=== PATIENT | female | born 1995 | race Caucasian/White ===

== ENCOUNTER → 2016-11-14 | Outpatient (CLI) | payer OTHER ==
[2016-11-14 09:58] LABS: Basophils # (A) 0.1 k/uL (0-0.2); Basophils % (A) 1 %; CH 30.8; CHCM 34.8; Eosinophils # (A) 0.2 k/uL (0-0.7); Eosinophils % (A) 3 %; HCT 38.6 % (34.0-46.0); HDW 2.91; HGB 12.7 gm/dL (11.4-16.0); Luc # (Auto) 0.15; Luc % (Auto) 2; Lymphocytes # (A) 2.5 k/uL (1.0-4.8); Lymphocytes % (A) 35 %; MCH 29.3 pg (25.0-35.0); MCV 88.8 fL (80.0-100.0); Mean Platelet Volume 8.6; Monocytes # (A) 0.3 k/uL (0-1.0); Monocytes % (A) 4 %; Neutrophils % (A) 56 %; RBC 4.35 m/uL (3.80-5.40); RDW 12.7 % (11.5-15.5); WBC 7.2 k/uL (3.8-10.6); WBC (Perox) 7.53
[2016-11-14 10:52] LABS: ALT 116 U/L (9-52); AST 76 U/L (14-36); Alkaline Phosphatase 132 U/L (38-126); Anion Gap 13 mmol/L; Blood Urea Nitrogen 11 mg/dL (7-17); Calcium 9.3 mg/dL (8.4-10.2); Carbon Dioxide 26 mmol/L (22-30); Chloride 100 mmol/L (98-107); Cholesterol 149 mg/dL (<200); Glucose 226 mg/dL (74-99); HDL Cholesterol 30 mg/dL (40-60); Non-African American GFR(MDRD) >60 (>60 ml/min/1.73 sqM); Potassium 4.2 mmol/L (3.5-5.1); Sodium 139 mmol/L (137-145); Total Bilirubin 0.4 mg/dL (0.2-1.3); Total Protein 7.5 g/dL (6.3-8.2); Triglycerides 213 mg/dL (<150)
[2016-11-14 11:19] LABS: Hepatitis B Surface Ag Index 0.06
[2016-11-14 11:37] LABS: Hepatitis C Virus IgG Index 0.02
[2016-11-14 11:42] LABS: Hepatitis C Virus IgG Ab Negative (Negative)
[2016-11-14 13:53] LABS: Hemoglobin A1C 8.5 % (4.2-6.1)
[2016-11-16 14:29] LABS: Hepatits C Virus RNA, Quant <12 IU/mL (<12); LOG HCV IU/mL <1.08 (<1.08)
[2016-11-17 17:46] LABS: HIV-1/HIV-2 Ab Screen NONREAC (NON REAC)
== END | disposition home or self-care (01) ==
LOC: LABWHC1 08:45
PROVIDERS: ATTEND Family Medicine
DX: Z00.00 Encounter for general adult medical examination without abnormal findings (principal); Z13.220 Encounter for screening for lipoid disorders; Z71.3 Dietary counseling and surveillance; Z71.89 Other specified counseling; Z68.31 Body mass index [BMI] 31.0-31.9, adult; E13.9 Other specified diabetes mellitus without complications
CPT/HCPCS: 36415; 80053; 80061; 83036; 84443; 84681; 85025; 86803; 87340; 87389; 87522

== ENCOUNTER 2017-02-22 16:32 | Emergency (ER) | payer OTHER ==
[2017-02-22] MEDS ORDERED: INSULIN REGULAR 100 UNIT/ML VIAL IV ONE ×2 (16:57→17:57)
[2017-02-22] MEDS ORDERED: SODIUM CHLORIDE 0.9% 2,000 ML IV ONE (16:57)
--- NOTE | 2017-02-22 17:05 | ED ---
General Adult HPI - General Chief complaint: Recheck/Abnormal Lab/Rx Stated complaint: Hyperglycemia Time Seen by Provider: 02/22/17 16:41 Source: patient, RN notes reviewed Mode of arrival: ambulatory Limitations: no limitations - History of Present Illness Initial comments: 21-year-old female presents emergency Department chief complaint hyperglycemia. Patient states her blood sugar has been continuously and elevate over the last few days. Patient states that she was diagnosed with diabetes last year. Patient states takes Levemir at nighttime and NovoLog 15 units with every meal. She states that she is not seeing a blood sugar in the 200s and she's been diagnosed and has told her junior systems analyst this. Patient states that she discharge does not feel well feels tired. Denies any fever or chills denies any cold like symptoms including cough, sore throat, nausea vomiting diarrhea constipation. No dysuria. Patient states that she is not sliding scale. Patient states she just had an appointment last few weeks with her primary care physician and junior systems analyst. - Related Data Home Medications Medication Instructions Recorded Confirmed Insulin Aspart [NovoLOG] 15 units SQ AC-TID 04/14/16 02/22/17 Insulin Detemir [Levemir] 30 unit SQ BID 04/14/16 02/22/17 Allergies Allergy/AdvReac Type Severity Reaction Status Date / Time No Known Allergies Allergy Verified 02/22/17 16:49 Review of Systems ROS Statement: Those systems with pertinent positive or pertinent negative responses have been documented in the HPI. ROS Other: All systems not noted in ROS Statement are negative. Past Medical History Past Medical History: No Reported History History of Any Multi-Drug Resistant Organisms: None Reported Past Surgical History: Ear Surgery, Orthopedic Surgery Past Psychological History: No Psychological Hx Reported Smoking Status: Current every day smoker Past Alcohol Use History: None Reported Past Drug Use History: None Reported General Exam Limitations: no limitations General appearance: alert, in no apparent distress Head exam: Present: atraumatic, normocephalic, normal inspection Eye exam: Present: normal appearance, PERRL, EOMI. Absent: scleral icterus, conjunctival injection, periorbital swelling ENT exam: Present: normal oropharynx, mucous membranes moist Neck exam: Present: normal inspection. Absent: tenderness, meningismus, lymphadenopathy Respiratory exam: Present: normal lung sounds bilaterally. Absent: respiratory distress, wheezes, rales, rhonchi, stridor Cardiovascular Exam: Present: regular rate, normal rhythm, normal heart sounds. Absent: systolic murmur, diastolic murmur, rubs, gallop, clicks GI/Abdominal exam: Present: soft, normal bowel sounds. Absent: distended, tenderness, guarding, rebound, rigid Neurological exam: Present: alert, oriented X3, CN II-XII intact Skin exam: Present: warm, dry, intact, normal color. Absent: rash Course Vital Signs 02/22/17 02/22/17 16:38 17:57 Temperature 98.2 F Pulse Rate 92 68 Respiratory 20 18 Rate Blood Pressure 128/83 99/66 O2 Sat by Pulse 98 98 Oximetry Medical Decision Making - Medical Decision Making 21-year-old female presented for hyperglycemia. Patient's blood sugar is 260 at this time. Patient blood sugar has been uncontrolled secondary to poor insulin dosing. Patient will follow-up with junior systems analyst. Return parameters were discussed. - Lab Data Result diagrams: 02/22/17 17:05 02/22/17 17:05 Lab Results 02/22/17 02/22/17 02/22/17 Range/Units 17:04 17:05 17:05 WBC 9.3 (3.8-10.6) k/uL RBC 4.24 (3.80-5.40) m/uL Hgb 13.4 (11.4-16.0) gm/dL Hct 37.9 (34.0-46.0) % MCV 89.3 (80.0-100.0) fL MCH 31.5 (25.0-35.0) pg MCHC 35.3 (31.0-37.0) g/dL RDW 13.0 (11.5-15.5) % Plt Count 207 (150-450) k/uL Neutrophils % 58 % Lymphocytes % 33 % Monocytes % 4 % Eosinophils % 2 % Basophils % 1 % Neutrophils # 5.4 (1.3-7.7) k/uL Lymphocytes # 3.1 (1.0-4.8) k/uL Monocytes # 0.4 (0-1.0) k/uL Eosinophils # 0.2 (0-0.7) k/uL Basophils # 0.1 (0-0.2) k/uL Sodium 137 (137-145) mmol/L Potassium 3.9 (3.5-5.1) mmol/L Chloride 103 (98-107) mmol/L Carbon Dioxide 24 (22-30) mmol/L Anion Gap 10 mmol/L BUN 13 (7-17) mg/dL Creatinine 0.60 (0.52-1.04) mg/dL Est GFR (MDRD) Af Amer >60 (>60 ml/min/1.73 sqM) Est GFR (MDRD) Non-Af >60 (>60 ml/min/1.73 sqM) Glucose 377 H (74-99) mg/dL POC Glucose (mg/dL) 430 H (75-99) mg/dL POC Glu Manager Outreach ID Mann Steven Calcium 9.2 (8.4-10.2) mg/dL Total Bilirubin 0.5 (0.2-1.3) mg/dL AST 57 H (14-36) U/L ALT 71 H (9-52) U/L Alkaline Phosphatase 121 (38-126) U/L Total Protein 7.2 (6.3-8.2) g/dL Albumin 4.0 (3.5-5.0) g/dL Lipase 147 (23-300) U/L Urine Color Urine Appearance (Clear) Urine pH (5.0-8.0) Ur Specific [place] (1.001-1.035) Urine Protein (Negative) Urine Glucose (UA) (Negative) Urine Ketones (Negative) Urine Blood (Negative) Urine Nitrite (Negative) Urine Bilirubin (Negative) Urine Urobilinogen (<2.0) mg/dL Ur Leukocyte Esterase (Negative) Urine WBC (0-5) /hpf Ur Squamous Epith Cells (0-4) /hpf Urine HCG, Qual (Not Detectd) Acetone, Qual (Negative) 02/22/17 02/22/17 02/22/17 Range/Units 17:05 17:05 17:05 WBC (3.8-10.6) k/uL RBC (3.80-5.40) m/uL Hgb (11.4-16.0) gm/dL Hct (34.0-46.0) % MCV (80.0-100.0) fL MCH (25.0-35.0) pg MCHC (31.0-37.0) g/dL RDW (11.5-15.5) % Plt Count (150-450) k/uL Neutrophils % % Lymphocytes % % Monocytes % % Eosinophils % % Basophils % % Neutrophils # (1.3-7.7) k/uL Lymphocytes # (1.0-4.8) k/uL Monocytes # (0-1.0) k/uL Eosinophils # (0-0.7) k/uL Basophils # (0-0.2) k/uL Sodium (137-145) mmol/L Potassium (3.5-5.1) mmol/L Chloride (98-107) mmol/L Carbon Dioxide (22-30) mmol/L Anion Gap mmol/L BUN (7-17) mg/dL Creatinine (0.52-1.04) mg/dL Est GFR (MDRD) Af Amer (>60 ml/min/1.73 sqM) Est GFR (MDRD) Non-Af (>60 ml/min/1.73 sqM) Glucose (74-99) mg/dL POC Glucose (mg/dL) (75-99) mg/dL POC Glu Manager Outreach ID Calcium (8.4-10.2) mg/dL Total Bilirubin (0.2-1.3) mg/dL AST (14-36) U/L ALT (9-52) U/L Alkaline Phosphatase (38-126) U/L Total Protein (6.3-8.2) g/dL Albumin (3.5-5.0) g/dL Lipase (23-300) U/L Urine Color Light Yellow Urine Appearance Clear (Clear) Urine pH 5.5 (5.0-8.0) Ur Specific [place] 1.023 (1.001-1.035) Urine Protein Negative (Negative) Urine Glucose (UA) 4+ H (Negative) Urine Ketones Negative (Negative) Urine Blood Negative (Negative) Urine Nitrite Negative (Negative) Urine Bilirubin Negative (Negative) Urine Urobilinogen <2.0 (<2.0) mg/dL Ur Leukocyte Esterase Trace H (Negative) Urine WBC 4 (0-5) /hpf Ur Squamous Epith Cells <1 (0-4) /hpf Urine HCG, Qual Not Detected (Not Detectd) Acetone, Qual Negative (Negative) 02/22/17 Range/Units 17:56 WBC (3.8-10.6) k/uL RBC (3.80-5.40) m/uL Hgb (11.4-16.0) gm/dL Hct (34.0-46.0) % MCV (80.0-100.0) fL MCH (25.0-35.0) pg MCHC (31.0-37.0) g/dL RDW (11.5-15.5) % Plt Count (150-450) k/uL Neutrophils % % Lymphocytes % % Monocytes % % Eosinophils % % Basophils % % Neutrophils # (1.3-7.7) k/uL Lymphocytes # (1.0-4.8) k/uL Monocytes # (0-1.0) k/uL Eosinophils # (0-0.7) k/uL Basophils # (0-0.2) k/uL Sodium (137-145) mmol/L Potassium (3.5-5.1) mmol/L Chloride (98-107) mmol/L Carbon Dioxide (22-30) mmol/L Anion Gap mmol/L BUN (7-17) mg/dL Creatinine (0.52-1.04) mg/dL Est GFR (MDRD) Af Amer (>60 ml/min/1.73 sqM) Est GFR (MDRD) Non-Af (>60 ml/min/1.73 sqM) Glucose (74-99) mg/dL POC Glucose (mg/dL) 301 H (75-99) mg/dL POC Glu Manager Outreach ID Mann Steven Calcium (8.4-10.2) mg/dL Total Bilirubin (0.2-1.3) mg/dL AST (14-36) U/L ALT (9-52) U/L Alkaline Phosphatase (38-126) U/L Total Protein (6.3-8.2) g/dL Albumin (3.5-5.0) g/dL Lipase (23-300) U/L Urine Color Urine Appearance (Clear) Urine pH (5.0-8.0) Ur Specific [place] (1.001-1.035) Urine Protein (Negative) Urine Glucose (UA) (Negative) Urine Ketones (Negative) Urine Blood (Negative) Urine Nitrite (Negative) Urine Bilirubin (Negative) Urine Urobilinogen (<2.0) mg/dL Ur Leukocyte Esterase (Negative) Urine WBC (0-5) /hpf Ur Squamous Epith Cells (0-4) /hpf Urine HCG, Qual (Not Detectd) Acetone, Qual (Negative) Disposition Clinical Impression: Hyperglycemia Disposition: HOME SELF-CARE Condition: Stable Instructions: Diabetic Hyperglycemia (ED) Additional Instructions: Please return to the Emergency Department if symptoms worsen or any other concerns. Time of Disposition: 18:48
[2017-02-22 17:16] LABS: Glucose,Whole Blood 430 mg/dL (75-99)
[2017-02-22 17:23] LABS: Appearance,Urine Clear (Clear); Bilirubin,Urine Negative (Negative); Glucose,Urine (UA) 4+ (Negative); Ketones,Urine Negative (Negative); Leukocyte Esterase,Urine Trace (Negative); Nitrite,Urine Negative (Negative); PH, Urine 5.5 (5.0-8.0); Particle Count 1189; Protein,Urine Negative (Negative); Specific Gravity,Urine 1.023 (1.001-1.035); Squamous Epithelial Cell,Urine <1 /hpf (0-4); UA Billing (MACRO vs. MICRO) MICRO; Urobilinogen,Urine <2.0 mg/dL (<2.0); WBC,Urine 4 /hpf (0-5)
[2017-02-22 17:25] LABS: Basophils # (A) 0.1 k/uL (0-0.2); Basophils % (A) 1 %; CH 31.3; CHCM 35.2; Eosinophils # (A) 0.2 k/uL (0-0.7); Eosinophils % (A) 2 %; HCT 37.9 % (34.0-46.0); HDW 2.83; HGB 13.4 gm/dL (11.4-16.0); Luc # (Auto) 0.22; Luc % (Auto) 2; Lymphocytes # (A) 3.1 k/uL (1.0-4.8); Lymphocytes % (A) 33 %; MCH 31.5 pg (25.0-35.0); MCHC 35.3 g/dL (31.0-37.0); MCV 89.3 fL (80.0-100.0); Mean Platelet Volume 8.1; Monocytes # (A) 0.4 k/uL (0-1.0); Monocytes % (A) 4 %; Neutrophils # (A) 5.4 k/uL (1.3-7.7); Neutrophils % (A) 58 %; RBC 4.24 m/uL (3.80-5.40); WBC 9.3 k/uL (3.8-10.6); WBC (Perox) 9.19
[2017-02-22 17:43] LABS: ALT 71 U/L (9-52); AST 57 U/L (14-36); Alkaline Phosphatase 121 U/L (38-126); Anion Gap 10 mmol/L; Blood Urea Nitrogen 13 mg/dL (7-17); Calcium 9.2 mg/dL (8.4-10.2); Carbon Dioxide 24 mmol/L (22-30); Chloride 103 mmol/L (98-107); Glucose 377 mg/dL (74-99); Non-African American GFR(MDRD) >60 (>60 ml/min/1.73 sqM); Potassium 3.9 mmol/L (3.5-5.1); Sodium 137 mmol/L (137-145); Total Bilirubin 0.5 mg/dL (0.2-1.3); Total Protein 7.2 g/dL (6.3-8.2)
[2017-02-22 17:57] LABS: Glucose,Whole Blood 301 mg/dL (75-99)
[2017-02-22 17:58] VITALS: RESP 18
[2017-02-22] MEDS ORDERED: KETOROLAC 30 MG/ML 1 ML VIAL IVP STA (18:39)
[2017-02-22 18:48] LABS: Glucose,Whole Blood 261 mg/dL (75-99)
[2017-02-22 19:28] VITALS: BP 107/54; PULSE 74; TEMP 98.3
== END 2017-02-22 19:28 | disposition home or self-care (01) ==
LOC: EC 16:32
DX: E11.65 Type 2 diabetes mellitus with hyperglycemia (principal); F17.200 Nicotine dependence, unspecified, uncomplicated; Z79.4 Long term (current) use of insulin
CPT/HCPCS: 36415; 80053; 82009; 83690; 85025; 81001; 81025; 99284; 96374; 96361; J1885

== ENCOUNTER → 2017-05-13 | Outpatient (CLI) | payer OTHER ==
--- NOTE | 2017-05-13 15:22 | US ---
EXAMINATION TYPE: US pelvic complete DATE OF EXAM: 05/13/2017 COMPARISON: US 2014 CLINICAL HISTORY: N92.6 Irregular Menses. LMP March 2017 lasting 3 weeks, diabetic/ on insulin TECHNIQUE: Transabdominal (TA) Date of LMP: March 2017 EXAM MEASUREMENTS: Uterus: 7.0 x 4.5 x 3.0 cm Endometrial Stripe: 0.8 cm Right Ovary: 4.3 x 2.9 x 2.7 cm Left Ovary: 4.1 x 2.7 x 3.3 cm 1. Uterus: Anteverted 2. Endometrium: unable to correlate thickness with mid March LMP 3. Right Ovary: multiple small follicles throughout 4. Left Ovary: multiple small follicles throughout 5. Bilateral Adnexa: wnl 6. Posterior cul-de-sac: wnl IMPRESSION: 1. Small ovarian follicles. Otherwise unremarkable study.
== END | disposition home or self-care (01) ==
LOC: RADUSWWP 13:54
PROVIDERS: ATTEND Family Medicine
DX: N92.6 Irregular menstruation, unspecified (principal)
CPT/HCPCS: 76856

== ENCOUNTER 2017-06-16 08:29 | Emergency (ER) | payer OTHER ==
[2017-06-16] MEDS ORDERED: SODIUM CHLORIDE 0.9% 1,000 ML IV STA (08:57)
[2017-06-16] MEDS ORDERED: ONDANSETRON 4 MG/2 ML VIAL IVP STA (08:57)
[2017-06-16] MEDS ORDERED: KETOROLAC 30 MG/ML 1 ML VIAL IVP STA (08:57)
--- NOTE | 2017-06-16 08:58 | ED ---
Abdominal Pain HPI - General Chief Complaint: Abdominal Pain Stated Complaint: ABDOMINAL PAIN LEFT SIDE Time Seen by Provider: 06/16/17 08:47 Source: patient, RN notes reviewed, old records reviewed Mode of arrival: ambulatory Limitations: no limitations - History of Present Illness Initial Comments: 22-year-old female presenting to the emergency Department chief complaint of left-sided abdominal pain for the past week. Patient reports that she was diagnosed with diabetes last year and diagnosed with ovarian cysts within the past few months. Patient states that the pain has been persistent for a week however this morning she woke up with severe sharp pain and brought her to tears. She did have an episode of vomiting. She denies any diarrhea or dysuria or hematuria. She states that she's also started her menstrual cycle and has been irregular since been on control, she reports that she's been bleeding very heavily. Patient states she's been having to change her pad every 1-2 hours. She denies any recent fever or chills. She states the pain radiates from her left lower quadrant towards her back. - Related Data Home Medications Medication Instructions Recorded Confirmed Insulin Aspart [NovoLOG] 20 units SQ AC-TID 04/14/16 06/16/17 Ibuprofen [Motrin] 400 mg PO BID PRN 06/16/17 06/16/17 Insulin Glargine [Lantus] 50 unit SQ BID 06/16/17 06/16/17 Norgestimate-Ethinyl Estradiol 1 tab PO DAILY 06/16/17 06/16/17 [Mononessa 28 Tablet] Previous Rx's Medication Instructions Recorded Ferrous Gluconate [Iron] 236 mg PO DAILY #20 tablet 06/16/17 Ketorolac [Toradol] 10 mg PO TID #12 tab 06/16/17 Allergies Allergy/AdvReac Type Severity Reaction Status Date / Time No Known Allergies Allergy Verified 06/16/17 08:45 Review of Systems ROS Statement: Those systems with pertinent positive or pertinent negative responses have been documented in the HPI. ROS Other: All systems not noted in ROS Statement are negative. Past Medical History Past Medical History: Diabetes Mellitus Additional Past Medical History / Comment(s): ovarian cysts History of Any Multi-Drug Resistant Organisms: None Reported Past Surgical History: Ear Surgery, Orthopedic Surgery Additional Past Surgical History / Comment(s): l ankle Past Psychological History: No Psychological Hx Reported Smoking Status: Former smoker Past Alcohol Use History: None Reported Past Drug Use History: None Reported General Exam - General Exam Comments Initial Comments: This is a 22-year-old female. Patient does not appear to be in any acute distress. Limitations: no limitations General appearance: alert, in no apparent distress Head exam: Present: atraumatic, normocephalic, normal inspection Eye exam: Present: normal appearance, PERRL, EOMI. Absent: scleral icterus, conjunctival injection, periorbital swelling ENT exam: Present: normal exam, mucous membranes moist Neck exam: Present: normal inspection. Absent: tenderness, meningismus, lymphadenopathy Respiratory exam: Present: normal lung sounds bilaterally. Absent: respiratory distress, wheezes, rales, rhonchi, stridor Cardiovascular Exam: Present: regular rate, normal rhythm, normal heart sounds. Absent: systolic murmur, diastolic murmur, rubs, gallop, clicks GI/Abdominal exam: Present: soft, tenderness (Minimal left lower quadrant tenderness with deep palpation.), normal bowel sounds. Absent: distended, guarding, rebound, rigid External exam: Present: normal external exam Speculum exam: Present: normal speculum exam, vaginal bleeding By manual exam: Present: normal by manual exam. Absent: cervical motion tenderness, adnexal tenderness Extremities exam: Present: normal inspection, full ROM, normal capillary refill. Absent: tenderness, pedal edema, joint swelling, calf tenderness Back exam: Present: normal inspection Neurological exam: Present: alert, oriented X3, CN II-XII intact Psychiatric exam: Present: normal affect, normal mood Skin exam: Present: warm, dry, intact, normal color. Absent: rash Course Vital Signs 06/16/17 08:37 Temperature 98.2 F Pulse Rate 83 Respiratory 18 Rate Blood Pressure 141/82 O2 Sat by Pulse 98 Oximetry Medical Decision Making - Medical Decision Making 22-year-old female chief complaint of left lower quadrant abdominal pain, vision has history of ovarian cysts. She does also complain of increased vaginal bleeding over the past week. Patient was given IV fluid level obtained and transvaginal ultrasound completed. Transvaginal ultrasound showed thickened endometrium. No evidence of any ovarian abnormality's. No evidence of free fluid. Patient was informed of this. Police and performed a digitalis bleeding. She does relate that she has been started on her control and does not believe that her hormones are regulated. Patient's blood work was reviewed and negative for any acute process. Urinalysis did show significant hematuria however she is on her menstrual cycle. Patient will be discharged with prescription for a temperature medication. She does report she feels better after receiving Toradol. Patient also be started on iron pills as there is chance that she could become slightly anemic to the amount of bleeding. Discussed that she needs follow-up with her primary care provider as well as her BRAILLE TEACHER Dr. Carter. Patient understands treatment plan will comply. Return parameters were discussed. - Lab Data Result diagrams: 06/16/17 09:07 06/16/17 09:07 Lab Results 06/16/17 06/16/17 06/16/17 Range/Units 09:07 09:07 09:07 WBC 12.8 H (3.8-10.6) k/uL RBC 4.03 (3.80-5.40) m/uL Hgb 12.2 (11.4-16.0) gm/dL Hct 34.9 (34.0-46.0) % MCV 86.6 (80.0-100.0) fL MCH 30.3 (25.0-35.0) pg MCHC 35.0 (31.0-37.0) g/dL RDW 12.8 (11.5-15.5) % Plt Count 320 (150-450) k/uL Neutrophils % 66 % Lymphocytes % 27 % Monocytes % 4 % Eosinophils % 1 % Basophils % 1 % Neutrophils # 8.4 H (1.3-7.7) k/uL Lymphocytes # 3.4 (1.0-4.8) k/uL Monocytes # 0.5 (0-1.0) k/uL Eosinophils # 0.2 (0-0.7) k/uL Basophils # 0.1 (0-0.2) k/uL Sodium 139 (137-145) mmol/L Potassium 4.2 (3.5-5.1) mmol/L Chloride 103 (98-107) mmol/L Carbon Dioxide 22 (22-30) mmol/L Anion Gap 14 mmol/L BUN 13 (7-17) mg/dL Creatinine 0.60 (0.52-1.04) mg/dL Est GFR (MDRD) Af Amer >60 (>60 ml/min/1.73 sqM) Est GFR (MDRD) Non-Af >60 (>60 ml/min/1.73 sqM) Glucose 162 H (74-99) mg/dL Calcium 9.7 (8.4-10.2) mg/dL Total Bilirubin 0.4 (0.2-1.3) mg/dL AST 56 H (14-36) U/L ALT 65 H (9-52) U/L Alkaline Phosphatase 88 (38-126) U/L Total Protein 7.7 (6.3-8.2) g/dL Albumin 4.5 (3.5-5.0) g/dL Amylase <30 L (30-110) U/L Lipase 76 (23-300) U/L Urine Color Light Red Urine Appearance Clear (Clear) Urine pH 5.5 (5.0-8.0) Ur Specific [place] 1.029 (1.001-1.035) Urine Protein 1+ H (Negative) Urine Glucose (UA) Negative (Negative) Urine Ketones Trace H (Negative) Urine Blood Large H (Negative) Urine Nitrite Negative (Negative) Urine Bilirubin Negative (Negative) Urine Urobilinogen <2.0 (<2.0) mg/dL Ur Leukocyte Esterase Trace H (Negative) Urine RBC >182 H (0-5) /hpf Urine WBC 9 H (0-5) /hpf Urine Mucus Occasional H (None) /hpf Urine HCG, Qual (Not Detectd) 06/16/17 Range/Units 09:07 WBC (3.8-10.6) k/uL RBC (3.80-5.40) m/uL Hgb (11.4-16.0) gm/dL Hct (34.0-46.0) % MCV (80.0-100.0) fL MCH (25.0-35.0) pg MCHC (31.0-37.0) g/dL RDW (11.5-15.5) % Plt Count (150-450) k/uL Neutrophils % % Lymphocytes % % Monocytes % % Eosinophils % % Basophils % % Neutrophils # (1.3-7.7) k/uL Lymphocytes # (1.0-4.8) k/uL Monocytes # (0-1.0) k/uL Eosinophils # (0-0.7) k/uL Basophils # (0-0.2) k/uL Sodium (137-145) mmol/L Potassium (3.5-5.1) mmol/L Chloride (98-107) mmol/L Carbon Dioxide (22-30) mmol/L Anion Gap mmol/L BUN (7-17) mg/dL Creatinine (0.52-1.04) mg/dL Est GFR (MDRD) Af Amer (>60 ml/min/1.73 sqM) Est GFR (MDRD) Non-Af (>60 ml/min/1.73 sqM) Glucose (74-99) mg/dL Calcium (8.4-10.2) mg/dL Total Bilirubin (0.2-1.3) mg/dL AST (14-36) U/L ALT (9-52) U/L Alkaline Phosphatase (38-126) U/L Total Protein (6.3-8.2) g/dL Albumin (3.5-5.0) g/dL Amylase (30-110) U/L Lipase (23-300) U/L Urine Color Urine Appearance (Clear) Urine pH (5.0-8.0) Ur Specific [place] (1.001-1.035) Urine Protein (Negative) Urine Glucose (UA) (Negative) Urine Ketones (Negative) Urine Blood (Negative) Urine Nitrite (Negative) Urine Bilirubin (Negative) Urine Urobilinogen (<2.0) mg/dL Ur Leukocyte Esterase (Negative) Urine RBC (0-5) /hpf Urine WBC (0-5) /hpf Urine Mucus (None) /hpf Urine HCG, Qual Not Detected (Not Detectd) - Radiology Data Radiology results: report reviewed Prominent endometrium which may relate to face menses however correlation with serum hCG should be performed puncture this findings are present and decidual reaction of the . Remarkable over his with no current evidence of ovarian torsion. Disposition Clinical Impression: History of ovarian cyst, Menorrhagia Disposition: HOME SELF-CARE Condition: Good Instructions: Menorrhagia (ED), Dysmenorrhea (ED) Additional Instructions: Patient advised to take medications as prescribed. Rest, increase fluids. Follow-up with primary care physician and BRAILLE TEACHER. Return to the emergency department if any alarming signs or symptoms occur. Prescriptions: Ferrous Gluconate [Iron] 236 mg PO DAILY #20 tablet Ketorolac [Toradol] 10 mg PO TID #12 tab Referrals: Faiza Leslie MD [Primary Care Provider] - 1-2 days Time of Disposition: 11:12
[2017-06-16 09:24] LABS: Basophils # (A) 0.1 k/uL (0-0.2); Basophils % (A) 1 %; CH 30.7; CHCM 35.6; Eosinophils # (A) 0.2 k/uL (0-0.7); Eosinophils % (A) 1 %; HCT 34.9 % (34.0-46.0); HDW 2.96; HGB 12.2 gm/dL (11.4-16.0); Luc # (Auto) 0.23; Luc % (Auto) 2; Lymphocytes # (A) 3.4 k/uL (1.0-4.8); Lymphocytes % (A) 27 %; MCH 30.3 pg (25.0-35.0); MCV 86.6 fL (80.0-100.0); Mean Platelet Volume 7.7; Monocytes # (A) 0.5 k/uL (0-1.0); Monocytes % (A) 4 %; Neutrophils # (A) 8.4 k/uL (1.3-7.7); Neutrophils % (A) 66 %; RBC 4.03 m/uL (3.80-5.40); RDW 12.8 % (11.5-15.5); WBC 12.8 k/uL (3.8-10.6); WBC (Perox) 12.84
[2017-06-16 09:37] LABS: Appearance,Urine Clear (Clear); Bilirubin,Urine Negative (Negative); Glucose,Urine (UA) Negative (Negative); Ketones,Urine Trace (Negative); Leukocyte Esterase,Urine Trace (Negative); Mucus,Urine Occasional /hpf; Nitrite,Urine Negative (Negative); PH, Urine 5.5 (5.0-8.0); Particle Count 5713; Protein,Urine 1+ (Negative); RBC,Urine >182 /hpf (0-5); Specific Gravity,Urine 1.029 (1.001-1.035); UA Billing (MACRO vs. MICRO) MICRO; Urobilinogen,Urine <2.0 mg/dL (<2.0); WBC,Urine 9 /hpf (0-5)
[2017-06-16 10:05] LABS: ALT 65 U/L (9-52); AST 56 U/L (14-36); Alkaline Phosphatase 88 U/L (38-126); Amylase <30 U/L (30-110); Anion Gap 14 mmol/L; Blood Urea Nitrogen 13 mg/dL (7-17); Calcium 9.7 mg/dL (8.4-10.2); Carbon Dioxide 22 mmol/L (22-30); Chloride 103 mmol/L (98-107); Glucose 162 mg/dL (74-99); Non-African American GFR(MDRD) >60 (>60 ml/min/1.73 sqM); Potassium 4.2 mmol/L (3.5-5.1); Sodium 139 mmol/L (137-145); Total Bilirubin 0.4 mg/dL (0.2-1.3); Total Protein 7.7 g/dL (6.3-8.2)
--- NOTE | 2017-06-16 10:52 | US ---
EXAMINATION TYPE: US transvaginal DATE OF EXAM: 06/16/2017 COMPARISON: 05/13/2017 CLINICAL HISTORY: Pain. LLQ pain, bleeding TECHNIQUE: Transvaginal (TV) Date of LMP: 05/26/2017 EXAM MEASUREMENTS: Uterus: 8.0 x 4.3 x 5.2 cm Endometrial Stripe: 1.1 cm Right Ovary: 3.8 x 2.6 x 3.5 cm Left Ovary: 2.8 x 2.1 x 1.8 cm 1. Uterus: Retroverted 2. Endometrium: 1.1 cm 3. Right Ovary: follicles 4. Left Ovary: Unremarkable Spectral, color and waveform doppler imaging shows good arterial and venous flow within the ovaries ; there is no evidence for ovarian torsion. 5. Bilateral Adnexa: wnl 6. Posterior cul-de-sac: no free fluid IMPRESSION: 1. Prominent endometrium, which may relate to the phase of menses. However correlation with serum bet a hCG should be performed to ensure this finding does not represent a decidual reaction of early preg danna. 2. Unremarkable ovaries with no current evidence of ovarian torsion.
[2017-06-16 11:35] VITALS: BP 111/56; PULSE 61; RESP 19; TEMP 98
== END 2017-06-16 11:40 | disposition home or self-care (01) ==
LOC: EC 08:29
DX: N92.0 Excessive and frequent menstruation with regular cycle (principal); N83.209 Unspecified ovarian cyst, unspecified side; E11.9 Type 2 diabetes mellitus without complications; Z87.891 Personal history of nicotine dependence; Z79.4 Long term (current) use of insulin; Z79.3 Long term (current) use of hormonal contraceptives; Z79.899 Other long term (current) drug therapy
CPT/HCPCS: 36415; 80053; 82150; 83690; 85025; 81001; 81025; 93975; 76830; 99284; 96374; 96375; 96361; J2405; J1885

== ENCOUNTER 2017-12-23 11:24 | Emergency (ER) | payer OTHER ==
[2017-12-23] MEDS ORDERED: IPRATROPIUM-ALBUTEROL 3 ML NEB INHALATION STA (12:02)
[2017-12-23] MEDS ORDERED: IBUPROFEN 600 MG TAB PO STA (12:02)
[2017-12-23] MEDS ORDERED: ACETAMINOPHEN TAB 500 MG TAB PO STA (12:02)
[2017-12-23 12:24] VITALS: RESP 18
--- NOTE | 2017-12-23 12:53 | XR ---
EXAMINATION TYPE: XR chest 2V DATE OF EXAM: 12/23/2017 COMPARISON: 04/14/16 HISTORY: Chest pain TECHNIQUE: Frontal and lateral views of the chest are obtained. FINDINGS: There is no focal air space opacity. No evidence for pneumothorax. No pleural effusion. The cardiac silhouette size is within normal limits. The osseous structures are grossly intact. IMPRESSION: 1. No acute cardiopulmonary process.
--- NOTE | 2017-12-23 12:54 | ED ---
General Adult HPI - General Chief complaint: Upper Respiratory Infection Stated complaint: light headed & SOB Time Seen by Provider: 12/23/17 11:30 Source: patient, RN notes reviewed Mode of arrival: ambulatory Limitations: no limitations - History of Present Illness Initial comments: This is a 22-year-old female presents emergency Department complaining of a cough with some sputum production over the last couple of days. Patient states she doesn't know that she has a fever. However when I took she is 100.6. Patient also states she's a little short of breath but does continue to smoke. Patient denies any abdominal pain patient denies nausea vomiting diarrhea. Patient denies any chest pain or palpitations. Patient denies any headache. Patient denies any leg pain or swelling. Patient denies any dysuria hematuria urinary frequency. - Related Data Home Medications Medication Instructions Recorded Confirmed Insulin Aspart [NovoLOG] See Protocol SQ AC-TID 04/14/16 12/23/17 Insulin Detemir [Levemir] 16 unit SQ HS 12/23/17 12/23/17 metFORMIN HCL [Glucophage] 1,000 mg PO BID 12/23/17 12/23/17 Previous Rx's Medication Instructions Recorded Albuterol Inhaler [Ventolin Hfa 1 - 2 puff INHALATION Q6HR PRN #2 12/23/17 Inhaler] puff Azithromycin [Zithromax Tri-Shaheen] 500 mg PO DAILY #3 tab 12/23/17 Allergies Allergy/AdvReac Type Severity Reaction Status Date / Time No Known Allergies Allergy Verified 12/23/17 11:53 Review of Systems ROS Statement: Those systems with pertinent positive or pertinent negative responses have been documented in the HPI. ROS Other: All systems not noted in ROS Statement are negative. Past Medical History Past Medical History: Diabetes Mellitus Additional Past Medical History / Comment(s): ovarian cysts, PCOS History of Any Multi-Drug Resistant Organisms: None Reported Past Surgical History: Ear Surgery, Orthopedic Surgery Additional Past Surgical History / Comment(s): l ankle Past Anesthesia/Blood Transfusion Reactions: No Reported Reaction Past Psychological History: No Psychological Hx Reported, Anxiety Smoking Status: Current every day smoker Past Alcohol Use History: None Reported Past Drug Use History: None Reported - Past Family History Father Additional Family Medical History / Comment(s): back surgery, heart problems Mother Additional Family Medical History / Comment(s): DJD General Exam - General Exam Comments Initial Comments: GENERAL: Patient is well-developed and well-nourished. Patient is nontoxic and well- hydrated and is in mild distress. ENT: Neck is soft and supple. No significant lymphadenopathy is noted. Oropharynx is clear. Moist mucous membranes. Neck has full range of motion without eliciting any pain. EYES: The sclera were anicteric and conjunctiva were pink and moist. Extraocular movements were intact and pupils were equal round and reactive to light. Eyelids were unremarkable. PULMONARY: Unlabored respirations. Good breath sounds bilaterally. No audible rales rhonchi or wheezing was noted. CARDIOVASCULAR: There is a regular rate and rhythm without any murmurs gallops or rubs. ABDOMEN: Soft and nontender with normal bowel sounds. SKIN: Skin is clear with no lesions or rashes and otherwise unremarkable. NEUROLOGIC: Patient is alert and oriented x3. Cranial nerves II through XII are grossly intact. Motor and sensory are also intact. Normal speech, volume and content. Symmetrical smile. MUSCULOSKELETAL: Normal extremities with adequate strength and full range of motion. LYMPHATICS: No significant lymphadenopathy is noted PSYCHIATRIC: Normal psychiatric evaluation. Limitations: no limitations Course Vital Signs 12/23/17 12/23/17 12/23/17 11:29 12:12 12:23 Temperature 97.7 F Pulse Rate 115 H 76 78 Respiratory 22 18 Rate Blood Pressure 132/68 O2 Sat by Pulse 99 Oximetry Medical Decision Making - Medical Decision Making Chest x-ray shows no acute abnormality - Lab Data Lab Results 12/23/17 Range/Units 12:19 Influenza Type A RNA Not Detected (Not Detectd) Influenza Type B (PCR) Not Detected (Not Detectd) Disposition Clinical Impression: Bronchitis Disposition: HOME SELF-CARE Condition: Good Instructions: Acute Bronchitis (ED) Prescriptions: Albuterol Inhaler [Ventolin Hfa Inhaler] 1 - 2 puff INHALATION Q6HR PRN #2 puff PRN Reason: Difficulty breathing Azithromycin [Zithromax Tri-Shaheen] 500 mg PO DAILY #3 tab Referrals: Faiza Leslie MD [Primary Care Provider] - 1-2 days Time of Disposition: 13:01
[2017-12-23 13:18] VITALS: BP 106/63; PULSE 104; TEMP 99.2
== END 2017-12-23 13:18 | disposition home or self-care (01) ==
LOC: EC 11:24
DX: J40 Bronchitis, not specified as acute or chronic (principal); E11.9 Type 2 diabetes mellitus without complications; F17.200 Nicotine dependence, unspecified, uncomplicated; Z79.4 Long term (current) use of insulin
CPT/HCPCS: 71046; 87502; 94640; 99284

== ENCOUNTER 2018-03-30 03:13 | Emergency (ER) | payer OTHER ==
[2018-03-30] MEDS ORDERED: KETOROLAC 60 MG/2 ML VIAL IM STA (03:38)
[2018-03-30] MEDS ORDERED: DEXAMETHASONE SOD PHOSPHATE 10 MG/ML 1 ML VIAL IM STA (03:38)
[2018-03-30 04:01] LABS: Appearance,Urine Clear (Clear); Bilirubin,Urine Negative (Negative); Blood,Urine Moderate (Negative); Color,Urine Yellow; Glucose,Urine (UA) Negative (Negative); Ketones,Urine Negative (Negative); Leukocyte Esterase,Urine Negative (Negative); Mucus,Urine Rare /hpf; Nitrite,Urine Negative (Negative); Protein,Urine Trace (Negative); RBC,Urine >182 /hpf (0-5); Squamous Epithelial Cell,Urine 64 /hpf (0-4); Urobilinogen,Urine <2.0 mg/dL (<2.0); WBC,Urine 18 /hpf (0-5)
--- NOTE | 2018-03-30 04:20 | ED ---
Back Pain HPI - General Source: patient, RN notes reviewed, old records reviewed Limitations: no limitations <Mely Gonzales - Last Filed: 03/30/18 04:16> <Sera Dhillon - Last Filed: 03/30/18 05:48> - General Chief Complaint: Back Pain/Injury Stated Complaint: BACK/LEG PAIN Time Seen by Provider: 03/30/18 03:25 - History of Present Illness Initial Comments: Patient is a 22-year-old male chief complaint of back pain radiating down her legs. She is on her menstrual cycle. Reports that she was at work doing a lot of heavy lifting with this pain just started to occur. She left work to go home early yesterday. Patient states that the pain seems to be equal in both legs. Reports occasional numbness and tingling. No history of back pain or sciatica. Patient states that she has had no abdominal pain. Reports the pain is different than her menstrual cramps. (Mely Gonzales) - Related Data Home Medications Medication Instructions Recorded Confirmed Insulin Aspart [NovoLOG] See Protocol SQ AC-TID 04/14/16 12/23/17 Insulin Detemir [Levemir] 16 unit SQ HS 12/23/17 12/23/17 metFORMIN HCL [Glucophage] 1,000 mg PO BID 12/23/17 12/23/17 Previous Rx's Medication Instructions Recorded Albuterol Inhaler [Ventolin Hfa 1 - 2 puff INHALATION Q6HR PRN #2 12/23/17 Inhaler] puff Azithromycin [Zithromax Tri-Shaheen] 500 mg PO DAILY #3 tab 12/23/17 Cyclobenzaprine [Flexeril] 10 mg PO TID #12 tab 03/30/18 Ibuprofen [Motrin] 600 mg PO Q8HR PRN #20 tab 03/30/18 Allergies Allergy/AdvReac Type Severity Reaction Status Date / Time No Known Allergies Allergy Verified 03/30/18 03:21 Review of Systems ROS Other: All systems not noted in ROS Statement are negative. <Mely Gonzales - Last Filed: 03/30/18 04:16> ROS Other: All systems not noted in ROS Statement are negative. <Sera Dhillon - Last Filed: 03/30/18 05:48> ROS Statement: Those systems with pertinent positive or pertinent negative responses have been documented in the HPI. Past Medical History Past Medical History: Diabetes Mellitus Additional Past Medical History / Comment(s): ovarian cysts, PCOS, blood transfusions History of Any Multi-Drug Resistant Organisms: None Reported Past Surgical History: Ear Surgery, Orthopedic Surgery Additional Past Surgical History / Comment(s): l ankle Past Anesthesia/Blood Transfusion Reactions: No Reported Reaction Past Psychological History: No Psychological Hx Reported, Anxiety Smoking Status: Current every day smoker Past Alcohol Use History: None Reported Past Drug Use History: None Reported - Past Family History Father Additional Family Medical History / Comment(s): back surgery, heart problems Mother Additional Family Medical History / Comment(s): DJD <Mely Gonzales - Last Filed: 03/30/18 04:16> General Exam Limitations: no limitations General appearance: alert, in no apparent distress Head exam: Present: atraumatic, normocephalic, normal inspection Eye exam: Present: normal appearance, PERRL, EOMI. Absent: scleral icterus, conjunctival injection, periorbital swelling ENT exam: Present: normal exam, mucous membranes moist Neck exam: Present: normal inspection. Absent: tenderness, meningismus, lymphadenopathy Respiratory exam: Present: normal lung sounds bilaterally. Absent: respiratory distress, wheezes, rales, rhonchi, stridor Cardiovascular Exam: Present: regular rate, normal rhythm, normal heart sounds. Absent: systolic murmur, diastolic murmur, rubs, gallop, clicks GI/Abdominal exam: Present: soft, normal bowel sounds. Absent: distended, tenderness, guarding, rebound, rigid Extremities exam: Present: normal inspection, full ROM, normal capillary refill. Absent: tenderness, pedal edema, joint swelling, calf tenderness Back exam: Present: normal inspection, full ROM, tenderness, vertebral tenderness (Vertebral tenderness. Lumbar.), other ( Positive straight leg test.) Neurological exam: Present: alert, oriented X3, CN II-XII intact Psychiatric exam: Present: normal affect, normal mood Skin exam: Present: warm, dry, intact, normal color. Absent: rash <Mely Gonzales - Last Filed: 03/30/18 04:16> Course <Mely Gonzales - Last Filed: 03/30/18 04:16> <Sera Dhillon - Last Filed: 03/30/18 05:48> Vital Signs 03/30/18 03:16 Temperature 98.1 F Pulse Rate 67 Respiratory 16 Rate Blood Pressure 136/85 O2 Sat by Pulse 100 Oximetry Finally x-ray report was available at 545, his normal patient was reassessed patient job requires a lot of heavy lifting pushing pulling and twisting him a she was advised to raise off she be gone home on Flexeril 10 mg 3 times a day when necessary she does have a Motrin on board she will continue that also needed basis (Sera Dhillon) Medical Decision Making <Mely Gonzales - Last Filed: 03/30/18 04:16> <Sera Dhillon - Last Filed: 03/30/18 05:48> - Medical Decision Making 22-year-old [employer] chief complaint of lower back pain rating down her legs. She was given IM Toradol. She is driving so we'll not give her muscle relaxers at this time. I discussed that she can rest, ice, do passive stretching of her back. We'll discharge her with anti-inflammatory muscle relaxers. Discussed appropriate follow-up with PCP. Currently pending lumbar spine x-ray. Final disposition by Dr. Martinez. (Mely Gonzales) - Lab Data Lab Results 03/30/18 Range/Units 03:45 Urine Color Yellow Urine Appearance Clear (Clear) Urine pH 6.0 (5.0-8.0) Ur Specific [place] 1.020 (1.001-1.035) Urine Protein Trace H (Negative) Urine Glucose (UA) Negative (Negative) Urine Ketones Negative (Negative) Urine Blood Moderate H (Negative) Urine Nitrite Negative (Negative) Urine Bilirubin Negative (Negative) Urine Urobilinogen <2.0 (<2.0) mg/dL Ur Leukocyte Esterase Negative (Negative) Urine RBC >182 H (0-5) /hpf Urine WBC 18 H (0-5) /hpf Ur Squamous Epith Cells 64 H (0-4) /hpf Urine Mucus Rare H (None) /hpf Disposition Is patient prescribed a controlled substance at d/c from ED?: No When asked, does pt state using other controlled substances?: No If prescribed controlled substance>3 days was MAPS reviewed?: No If opioid is for acute pain is fill amount 7 days or less?: No If Rx opioid, was Start Talking consent form obtained?: No <ChristianMely - Last Filed: 03/30/18 04:16> Is patient prescribed a controlled substance at d/c from ED?: No <Sera Dhillon - Last Filed: 03/30/18 05:48> Clinical Impression: Sciatica Disposition: HOME SELF-CARE Condition: Good Instructions: Acute Low Back Pain (ED) Additional Instructions: apply heat and ice to the back, do stretches. Use a prescription medicine and muscle relaxers as directed. Return to emergency department if any signs or symptoms occur. Prescriptions: Cyclobenzaprine [Flexeril] 10 mg PO TID #12 tab Ibuprofen [Motrin] 600 mg PO Q8HR PRN #20 tab PRN Reason: Pain Referrals: Faiza Leslie MD [Primary Care Provider] - 1-2 days
--- NOTE | 2018-03-30 05:33 | XR ---
EXAM: XR Lumbar Spine, 2 or 3 Views CLINICAL HISTORY: ITS.REASON XR Reason: Pain TECHNIQUE: Frontal and lateral views of the lumbar spine. COMPARISON: No relevant prior studies available. FINDINGS: Vertebrae: Unremarkable. No acute fracture. Normal alignment. Disc spaces: No acute findings. No significant narrowing. Soft tissues: Unremarkable. IMPRESSION: Normal lumbar spine x-rays.
[2018-03-30 05:52] VITALS: BP 142/77; PULSE 79; RESP 17; TEMP 97.8
== END 2018-03-30 05:58 | disposition home or self-care (01) ==
LOC: EC 03:13
DX: M54.41 Lumbago with sciatica, right side (principal); M54.42 Lumbago with sciatica, left side; E11.9 Type 2 diabetes mellitus without complications; F17.200 Nicotine dependence, unspecified, uncomplicated; Z79.4 Long term (current) use of insulin
CPT/HCPCS: 81001; 72100; 99284; 96372 ×2; J1100; J1885

== ENCOUNTER 2018-12-04 01:51 | Observation (INO) | payer BC, OTHER ==
[2018-12-04] MEDS ORDERED: SODIUM CHLORIDE 0.9% 1,000 ML IV ONE ×2 (02:41→08:15)
[2018-12-04] MEDS ORDERED: KETOROLAC 30 MG/ML 1 ML VIAL IVP STA (02:41)
[2018-12-04] MEDS ORDERED: SODIUM CHLORIDE 0.9% 500 ML 500 ML IV ONE (02:41)
[2018-12-04] MEDS ORDERED: ONDANSETRON 4 MG/2 ML VIAL IVP STA (02:41)
[2018-12-04 03:12] LABS: Basophils % (A) 0 %; Eosinophils # (A) 0.2 k/uL (0-0.7); Eosinophils % (A) 2 %; HGB 13.3 gm/dL (11.4-16.0); Lymphocytes # (A) 2.9 k/uL (1.0-4.8); Lymphocytes % (A) 30 %; MCHC 33.2 g/dL (31.0-37.0); MCV 90.6 fL (80.0-100.0); Mean Platelet Volume 7.5; Monocytes # (A) 0.4 k/uL (0-1.0); Monocytes % (A) 4 %; Neutrophils # (A) 5.8 k/uL (1.3-7.7); Neutrophils % (A) 61 %; Platelet Count 204 k/uL (150-450); RBC 4.41 m/uL (3.80-5.40); RDW 12.9 % (11.5-15.5); WBC 9.5 k/uL (3.8-10.6)
[2018-12-04 03:20] LABS: ALT 71 U/L (9-52); AST 62 U/L (14-36); Albumin 4.1 g/dL (3.5-5.0); Alkaline Phosphatase 129 U/L (38-126); Anion Gap 14 mmol/L; Blood Urea Nitrogen 13 mg/dL (7-17); Calcium 9.7 mg/dL (8.4-10.2); Carbon Dioxide 20 mmol/L (22-30); Chloride 100 mmol/L (98-107); Potassium 4.4 mmol/L (3.5-5.1); Sodium 134 mmol/L (137-145); Total Bilirubin 0.6 mg/dL (0.2-1.3); Total Protein 7.6 g/dL (6.3-8.2)
[2018-12-04] MEDS ORDERED: INSULIN REGULAR 100 UNIT/ML VIAL IV ONE ×2 (03:27→04:46)
[2018-12-04 03:29] LABS: Glucose 515 mg/dL (74-99)
[2018-12-04 03:37] LABS: Amorphous Sediment,Urine Rare /hpf; Appearance,Urine Clear (Clear); Bacteria,Urine Rare /hpf; Bilirubin,Urine Negative (Negative); Blood,Urine Negative (Negative); Color,Urine Light Yellow; Glucose,Urine (UA) 4+ (Negative); Ketones,Urine Negative (Negative); Leukocyte Esterase,Urine Moderate (Negative); Mucus,Urine Rare /hpf; Nitrite,Urine Negative (Negative); Protein,Urine Negative (Negative); RBC,Urine 2 /hpf (0-5); Specific Gravity,Urine 1.021 (1.001-1.035); Squamous Epithelial Cell,Urine 4 /hpf (0-4); Urobilinogen,Urine <2.0 mg/dL (<2.0); WBC,Urine 17 /hpf (0-5)
--- NOTE | 2018-12-04 03:49 | ED ---
General Adult HPI <Shawn Briceño - Last Filed: 12/04/18 08:14> - General Source: patient Mode of arrival: ambulatory Limitations: no limitations <Jeannette Cote - Last Filed: 12/05/18 18:05> - General Chief complaint: Recheck/Abnormal Lab/Rx Stated complaint: Hyperglycemia Time Seen by Provider: 12/04/18 02:03 - History of Present Illness Initial comments: 23-year-old female patient with past medical history significant for insulin- dependent type 2 diabetes mellitus presents to the emergency department today for evaluation of hyperglycemia and right-sided headache. Patient states that she has been having difficulty controlling her blood sugars over the last couple of days. States she's been taking her insulin had increased doses and has not been helping. Patient states today at work she started to have a sharp stabbing pain to the right side of her head. States that she does often get headaches on her blood sugar is high. She states that she has been nauseated but has not vomited. She denies any fever or chills. Denies any presence of known infections. States her last period was 5 months ago however she does have PCOS and her periods are irregular. She is unsure she could be . Patient denies any recent rash, shortness breath, chest pain, abdominal pain, diarrhea, constipation, back pain, numbness, tingling, dizziness, weakness, hematuria, dysuria, urinary urgency, urinary frequency, headache, visual changes , or any other complaints. (Jeannette Cote) - Related Data Home Medications Medication Instructions Recorded Confirmed Insulin Aspart [NovoLOG] See Protocol SQ AC-TID 04/14/16 12/04/18 metFORMIN HCL [Glucophage] 1,000 mg PO DAILY 12/23/17 12/04/18 Insulin Glargine,Hum.rec.anlog 35 units SQ DAILY 12/04/18 12/04/18 [Basaglar Kwikpen U-100] Allergies Allergy/AdvReac Type Severity Reaction Status Date / Time No Known Allergies Allergy Verified 12/04/18 07:22 Review of Systems ROS Other: All systems not noted in ROS Statement are negative. <Shawn Briceño - Last Filed: 12/04/18 08:14> ROS Other: All systems not noted in ROS Statement are negative. <Jeannette Cote - Last Filed: 12/05/18 18:05> ROS Statement: Those systems with pertinent positive or pertinent negative responses have been documented in the HPI. Past Medical History Past Medical History: Diabetes Mellitus Additional Past Medical History / Comment(s): ovarian cysts, PCOS, blood transfusions History of Any Multi-Drug Resistant Organisms: None Reported Past Surgical History: Ear Surgery, Orthopedic Surgery Additional Past Surgical History / Comment(s): l ankle Past Anesthesia/Blood Transfusion Reactions: No Reported Reaction Past Psychological History: No Psychological Hx Reported, Anxiety Smoking Status: Current every day smoker Past Alcohol Use History: None Reported Past Drug Use History: None Reported - Past Family History Father Additional Family Medical History / Comment(s): back surgery, heart problems Mother Additional Family Medical History / Comment(s): DJD <Jeannette Cote - Last Filed: 12/05/18 18:05> General Exam Limitations: no limitations General appearance: alert, in no apparent distress, other (Social well-developed , well-nourished adult female patient in no acute distress. Vital signs upon presentation are temperature 97.7F, pulse 66, respirations 18, blood pressure 132/70, pulse ox 99% on room air.) <Jeannette Cote - Last Filed: 12/05/18 18:05> Vital Signs 12/04/18 12/04/18 01:53 08:15 Temperature 97.7 F Pulse Rate 66 60 Respiratory 18 18 Rate Blood Pressure 132/70 122/69 O2 Sat by Pulse 99 99 Oximetry Medical Decision Making - Lab Data Result diagrams: 12/04/18 01:55 12/04/18 01:55 <Shawn Briceño - Last Filed: 12/04/18 08:14> - Lab Data Result diagrams: 12/04/18 01:55 12/05/18 07:54 <Jeannette Cote - Last Filed: 12/05/18 18:05> - Medical Decision Making 23-year-old female patient presented to the emergency department today for evaluation of hyperglycemia. Patient was given IV fluids and several doses of insulin in the emergency department, blood sugar remained elevated. We will admit her for glycemic management. Patient did also have evidence for mild urinary tract infection, we'll start Bactrim pending culture. (Jeannette Cote) - Lab Data Lab Results 12/04/18 12/04/18 12/04/18 Range/Units 01:55 01:55 01:55 WBC 9.5 (3.8-10.6) k/uL RBC 4.41 (3.80-5.40) m/uL Hgb 13.3 (11.4-16.0) gm/dL Hct 40.0 (34.0-46.0) % MCV 90.6 (80.0-100.0) fL MCH 30.0 (25.0-35.0) pg MCHC 33.2 (31.0-37.0) g/dL RDW 12.9 (11.5-15.5) % Plt Count 204 (150-450) k/uL Neutrophils % 61 % Lymphocytes % 30 % Monocytes % 4 % Eosinophils % 2 % Basophils % 0 % Neutrophils # 5.8 (1.3-7.7) k/uL Lymphocytes # 2.9 (1.0-4.8) k/uL Monocytes # 0.4 (0-1.0) k/uL Eosinophils # 0.2 (0-0.7) k/uL Basophils # 0.0 (0-0.2) k/uL Sodium 134 L (137-145) mmol/L Potassium 4.4 (3.5-5.1) mmol/L Chloride 100 (98-107) mmol/L Carbon Dioxide 20 L (22-30) mmol/L Anion Gap 14 mmol/L BUN 13 (7-17) mg/dL Creatinine 0.57 (0.52-1.04) mg/dL Est GFR (CKD-EPI)AfAm >90 (>60 ml/min/1.73 sqM) Est GFR (CKD-EPI)NonAf >90 (>60 ml/min/1.73 sqM) Glucose 515 H* (74-99) mg/dL POC Glucose (mg/dL) (75-99) mg/dL POC Glu Loan Review Officer ID Estimated Ave Glu mg/dL Hemoglobin A1c (4.0-6.0) % Calcium 9.7 (8.4-10.2) mg/dL Total Bilirubin 0.6 (0.2-1.3) mg/dL AST 62 H (14-36) U/L ALT 71 H (9-52) U/L Alkaline Phosphatase 129 H (38-126) U/L Total Protein 7.6 (6.3-8.2) g/dL Albumin 4.1 (3.5-5.0) g/dL Urine Color Urine Appearance (Clear) Urine pH (5.0-8.0) Ur Specific [place] (1.001-1.035) Urine Protein (Negative) Urine Glucose (UA) (Negative) Urine Ketones (Negative) Urine Blood (Negative) Urine Nitrite (Negative) Urine Bilirubin (Negative) Urine Urobilinogen (<2.0) mg/dL Ur Leukocyte Esterase (Negative) Urine RBC (0-5) /hpf Urine WBC (0-5) /hpf Ur Squamous Epith Cells (0-4) /hpf Amorphous Sediment (None) /hpf Urine Bacteria (None) /hpf Urine Mucus (None) /hpf Urine HCG, Qual Not Detected (Not Detectd) Acetone, Qual Negative (Negative) 12/04/18 12/04/18 12/04/18 Range/Units 01:55 01:55 02:02 WBC (3.8-10.6) k/uL RBC (3.80-5.40) m/uL Hgb (11.4-16.0) gm/dL Hct (34.0-46.0) % MCV (80.0-100.0) fL MCH (25.0-35.0) pg MCHC (31.0-37.0) g/dL RDW (11.5-15.5) % Plt Count (150-450) k/uL Neutrophils % % Lymphocytes % % Monocytes % % Eosinophils % % Basophils % % Neutrophils # (1.3-7.7) k/uL Lymphocytes # (1.0-4.8) k/uL Monocytes # (0-1.0) k/uL Eosinophils # (0-0.7) k/uL Basophils # (0-0.2) k/uL Sodium (137-145) mmol/L Potassium (3.5-5.1) mmol/L Chloride (98-107) mmol/L Carbon Dioxide (22-30) mmol/L Anion Gap mmol/L BUN (7-17) mg/dL Creatinine (0.52-1.04) mg/dL Est GFR (CKD-EPI)AfAm (>60 ml/min/1.73 sqM) Est GFR (CKD-EPI)NonAf (>60 ml/min/1.73 sqM) Glucose (74-99) mg/dL POC Glucose (mg/dL) 535 H (75-99) mg/dL POC Glu Loan Review Officer ID Lisa Caldwell Estimated [address] Glu mg/dL 258 Hemoglobin A1c 10.6 H (4.0-6.0) % Calcium (8.4-10.2) mg/dL Total Bilirubin (0.2-1.3) mg/dL AST (14-36) U/L ALT (9-52) U/L Alkaline Phosphatase (38-126) U/L Total Protein (6.3-8.2) g/dL Albumin (3.5-5.0) g/dL Urine Color Light Yellow Urine Appearance Clear (Clear) Urine pH 5.0 (5.0-8.0) Ur Specific [place] 1.021 (1.001-1.035) Urine Protein Negative (Negative) Urine Glucose (UA) 4+ H (Negative) Urine Ketones Negative (Negative) Urine Blood Negative (Negative) Urine Nitrite Negative (Negative) Urine Bilirubin Negative (Negative) Urine Urobilinogen <2.0 (<2.0) mg/dL Ur Leukocyte Esterase Moderate H (Negative) Urine RBC 2 (0-5) /hpf Urine WBC 17 H (0-5) /hpf Ur Squamous Epith Cells 4 (0-4) /hpf Amorphous Sediment Rare H (None) /hpf Urine Bacteria Rare H (None) /hpf Urine Mucus Rare H (None) /hpf Urine HCG, Qual (Not Detectd) Acetone, Qual (Negative) 12/04/18 12/04/18 12/04/18 Range/Units 03:46 04:38 05:33 WBC (3.8-10.6) k/uL RBC (3.80-5.40) m/uL Hgb (11.4-16.0) gm/dL Hct (34.0-46.0) % MCV (80.0-100.0) fL MCH (25.0-35.0) pg MCHC (31.0-37.0) g/dL RDW (11.5-15.5) % Plt Count (150-450) k/uL Neutrophils % % Lymphocytes % % Monocytes % % Eosinophils % % Basophils % % Neutrophils # (1.3-7.7) k/uL Lymphocytes # (1.0-4.8) k/uL Monocytes # (0-1.0) k/uL Eosinophils # (0-0.7) k/uL Basophils # (0-0.2) k/uL Sodium (137-145) mmol/L Potassium (3.5-5.1) mmol/L Chloride (98-107) mmol/L Carbon Dioxide (22-30) mmol/L Anion Gap mmol/L BUN (7-17) mg/dL Creatinine (0.52-1.04) mg/dL Est GFR (CKD-EPI)AfAm (>60 ml/min/1.73 sqM) Est GFR (CKD-EPI)NonAf (>60 ml/min/1.73 sqM) Glucose (74-99) mg/dL POC Glucose (mg/dL) 402 H 327 H 333 H (75-99) mg/dL POC Glu Loan Review Officer KEISHA Andrade, Francheska Andrade, Christina Castro [address]imated [address] Glu mg/dL Hemoglobin A1c (4.0-6.0) % Calcium (8.4-10.2) mg/dL Total Bilirubin (0.2-1.3) mg/dL AST (14-36) U/L ALT (9-52) U/L Alkaline Phosphatase (38-126) U/L Total Protein (6.3-8.2) g/dL Albumin (3.5-5.0) g/dL Urine Color Urine Appearance (Clear) Urine pH (5.0-8.0) Ur Specific [place] (1.001-1.035) Urine Protein (Negative) Urine Glucose (UA) (Negative) Urine Ketones (Negative) Urine Blood (Negative) Urine Nitrite (Negative) Urine Bilirubin (Negative) Urine Urobilinogen (<2.0) mg/dL Ur Leukocyte Esterase (Negative) Urine RBC (0-5) /hpf Urine WBC (0-5) /hpf Ur Squamous Epith Cells (0-4) /hpf Amorphous Sediment (None) /hpf Urine Bacteria (None) /hpf Urine Mucus (None) /hpf Urine HCG, Qual (Not Detectd) Acetone, Qual (Negative) 12/04/18 Range/Units 06:52 WBC (3.8-10.6) k/uL RBC (3.80-5.40) m/uL Hgb (11.4-16.0) gm/dL Hct (34.0-46.0) % MCV (80.0-100.0) fL MCH (25.0-35.0) pg MCHC (31.0-37.0) g/dL RDW (11.5-15.5) % Plt Count (150-450) k/uL Neutrophils % % Lymphocytes % % Monocytes % % Eosinophils % % Basophils % % Neutrophils # (1.3-7.7) k/uL Lymphocytes # (1.0-4.8) k/uL Monocytes # (0-1.0) k/uL Eosinophils # (0-0.7) k/uL Basophils # (0-0.2) k/uL Sodium (137-145) mmol/L Potassium (3.5-5.1) mmol/L Chloride (98-107) mmol/L Carbon Dioxide (22-30) mmol/L Anion Gap mmol/L BUN (7-17) mg/dL Creatinine (0.52-1.04) mg/dL Est GFR (CKD-EPI)AfAm (>60 ml/min/1.73 sqM) Est GFR (CKD-EPI)NonAf (>60 ml/min/1.73 sqM) Glucose (74-99) mg/dL POC Glucose (mg/dL) 276 H (75-99) mg/dL POC Glu Loan Review Officer ID Humera Leung Estimated [address] Glu mg/dL Hemoglobin A1c (4.0-6.0) % Calcium (8.4-10.2) mg/dL Total Bilirubin (0.2-1.3) mg/dL AST (14-36) U/L ALT (9-52) U/L Alkaline Phosphatase (38-126) U/L Total Protein (6.3-8.2) g/dL Albumin (3.5-5.0) g/dL Urine Color Urine Appearance (Clear) Urine pH (5.0-8.0) Ur Specific [place] (1.001-1.035) Urine Protein (Negative) Urine Glucose (UA) (Negative) Urine Ketones (Negative) Urine Blood (Negative) Urine Nitrite (Negative) Urine Bilirubin (Negative) Urine Urobilinogen (<2.0) mg/dL Ur Leukocyte Esterase (Negative) Urine RBC (0-5) /hpf Urine WBC (0-5) /hpf Ur Squamous Epith Cells (0-4) /hpf Amorphous Sediment (None) /hpf Urine Bacteria (None) /hpf Urine Mucus (None) /hpf Urine HCG, Qual (Not Detectd) Acetone, Qual (Negative) Disposition Time of Disposition: 08:15 <Shawn Briceño - Last Filed: 12/04/18 08:14> Is patient prescribed a controlled substance at d/c from ED?: No <Jeannette Cote - Last Filed: 12/05/18 18:05> Clinical Impression: Hyperglycemia Disposition: ADMITTED IP TO THIS HOSP
[2018-12-04 05:17] LABS: Glucose,Whole Blood 535 mg/dL (75-99)
[2018-12-04 05:17] LABS: Glucose,Whole Blood 327 mg/dL (75-99)
[2018-12-04 05:17] LABS: Glucose,Whole Blood 402 mg/dL (75-99)
[2018-12-04] MEDS ORDERED: SULFAMETHOX-TMP 800-160MG 1 EACH TAB PO STA (05:39)
[2018-12-04 06:48] LABS: Glucose,Whole Blood 333 mg/dL (75-99)
[2018-12-04 07:07] LABS: Glucose,Whole Blood 276 mg/dL (75-99)
[2018-12-04 09:22] VITALS: BMI 31.7
[2018-12-04] MEDS ORDERED: KETOROLAC 30 MG/ML 1 ML VIAL IVP ONE (09:59)
[2018-12-04 11:16] LABS: Glucose,Whole Blood 309 mg/dL (75-99)
--- NOTE | 2018-12-04 11:31 | P.HPIM ---
History of Present Illness Chief Complaint: Headache and hyperglycemia This is a very pleasant 23-year-old female with a past medical history significant for insulin-dependent diabetes comes to the ER for above-mentioned complaints. The patient says that she's been having trouble controlling her sugar for the past few days. She works at retirement. She started having headache on the right side. She checked her blood sugar which was on 330s and she thus came into the ER for further evaluation and management. He said that when her blood sugars I she often gets headache like this. She was also nauseous but she did not vomit. She otherwise does not complain of any chest pain, racing heart, no cough, shortness breath, no abdominal pain, no diarrhea constipation, no tingling numbness on in the extremities, any itch or rash. Next ER course-patient's vitals were stable. Labwork done showed WAC 9.5 hemoglobin 13.3 platelets 204 sodium 134 potassium 4.4 bun 13 creatinine 0.57 glucose 515. Her anion gap was 14. She was given IV fluids given insulin and admitted to the hospitalist service for further evaluation and management. Review of Systems All systems: negative Past Medical History Past Medical History: Diabetes Mellitus Additional Past Medical History / Comment(s): ovarian cysts, PCOS, blood transfusions History of Any Multi-Drug Resistant Organisms: None Reported Past Surgical History: Ear Surgery, Orthopedic Surgery Additional Past Surgical History / Comment(s): l ankle Past Anesthesia/Blood Transfusion Reactions: No Reported Reaction Past Psychological History: Anxiety Smoking Status: Former smoker Past Alcohol Use History: None Reported Past Drug Use History: None Reported - Past Family History Father Additional Family Medical History / Comment(s): back surgery, heart problems, non alcoholic fatty liver Mother Additional Family Medical History / Comment(s): DJD Medications and Allergies Home Medications Medication Instructions Recorded Confirmed Type Insulin Aspart [NovoLOG] See Protocol SQ AC-TID 04/14/16 12/04/18 History metFORMIN HCL [Glucophage] 1,000 mg PO DAILY 12/23/17 12/04/18 History Insulin Glargine,Hum.rec.anlog 35 units SQ DAILY 12/04/18 12/04/18 History [Basaglar Kwikpen U-100] Allergies Allergy/AdvReac Type Severity Reaction Status Date / Time No Known Allergies Allergy Verified 12/04/18 07:22 Physical Exam Vitals: Vital Signs Temp Pulse Resp BP Pulse Ox 12/04/18 08:50 98.4 F 12/04/18 08:15 60 18 122/69 99 12/04/18 01:53 97.7 F 66 18 132/70 99 Intake and Output 12/03/18 12/04/18 12/04/18 22:59 06:59 14:59 Other: Weight 83.824 kg On exam, alert and oriented x3. HEENT: Conjunctivae normal. eyes normal. NECK: No JVD. No thyroid enlargement. No LNs CARDIOVASCULAR: S1, S2 muffled. No murmur RESPIRATION: Breath sounds diminished in the bases. No rhonchi or crackles. No bronchial breathing. ABDOMEN: Soft, nontender . No guarding. no masses palpable. No ascites, No hepatosplenomegaly.Bowel sounds heard. LEGS: No edema. no swelling NERVOUS SYSTEM: Cranial N 2-12 grossly normal. Moves all 4 limbs. No focal deficits. No sensory deficit. No signs of cerebellar dysfucntion. Skin: no ulcer no rash Joints: No active swelling. No inflammation. Lymphatic system. No LN neck axilla or groin. Results CBC & Chem 7: 12/04/18 01:55 12/04/18 01:55 Labs: Abnormal Lab Results - Last 24 Hours (Table) 12/04/18 12/04/18 12/04/18 Range/Units 01:55 01:55 02:02 Sodium 134 L (137-145) mmol/L Carbon Dioxide 20 L (22-30) mmol/L Glucose 515 H* (74-99) mg/dL POC Glucose (mg/dL) 535 H (75-99) mg/dL AST 62 H (14-36) U/L ALT 71 H (9-52) U/L Alkaline Phosphatase 129 H (38-126) U/L Urine Glucose (UA) 4+ H (Negative) Ur Leukocyte Esterase Moderate H (Negative) Urine WBC 17 H (0-5) /hpf Amorphous Sediment Rare H (None) /hpf Urine Bacteria Rare H (None) /hpf Urine Mucus Rare H (None) /hpf 12/04/18 12/04/18 12/04/18 Range/Units 03:46 04:38 05:33 Sodium (137-145) mmol/L Carbon Dioxide (22-30) mmol/L Glucose (74-99) mg/dL POC Glucose (mg/dL) 402 H 327 H 333 H (75-99) mg/dL AST (14-36) U/L ALT (9-52) U/L Alkaline Phosphatase (38-126) U/L Urine Glucose (UA) (Negative) Ur Leukocyte Esterase (Negative) Urine WBC (0-5) /hpf Amorphous Sediment (None) /hpf Urine Bacteria (None) /hpf Urine Mucus (None) /hpf 12/04/18 12/04/18 Range/Units 06:52 11:14 Sodium (137-145) mmol/L Carbon Dioxide (22-30) mmol/L Glucose (74-99) mg/dL POC Glucose (mg/dL) 276 H 309 H (75-99) mg/dL AST (14-36) U/L ALT (9-52) U/L Alkaline Phosphatase (38-126) U/L Urine Glucose (UA) (Negative) Ur Leukocyte Esterase (Negative) Urine WBC (0-5) /hpf Amorphous Sediment (None) /hpf Urine Bacteria (None) /hpf Urine Mucus (None) /hpf Microbiology - Last 24 Hours (Table) 12/04/18 01:55 Urine Culture - Preliminary Urine,Voided Thrombosis Risk Factor Assmnt - Choose All That Apply Each Factor Represents 1 point: Obesity (BMI >25) Thrombosis Risk Factor Assessment Total Risk Factor Score: 1 Thrombosis Risk Factor Assessment Level: Low Risk Assessment and Plan Assessment: - Hyperglycemia - Headache - History of PCO S - Obesity Plan - We'll continue IV fluids - We'll continue sliding scale every 4 hours - Patient was given Toradol. We'll see how the headache does - History the patient sugars are control and has no more headaches, patient can be discharged towards in the evening - We will admit the patient to observation - Patient is full code Time with Patient: Greater than 30
[2018-12-04] MEDS ORDERED: INSULIN ASPART (NovoLOG) 100 UNIT/ML VIAL SQ SCH (12:30)
[2018-12-04] MEDS: INSULIN DETEMIR (LEVEMIR) 100 UNIT/ML SYR SQ SCH (13:17)
[2018-12-04 17:04] LABS: Glucose,Whole Blood 310 mg/dL (75-99)
[2018-12-04] MEDS: SULFAMETHOX-TMP 800-160MG 1 EACH TAB PO SCH (20:50)
[2018-12-04] MEDS: INSULIN ASPART (NovoLOG) 100 UNIT/ML VIAL SQ SCH (20:50)
[2018-12-04 20:52] LABS: Glucose,Whole Blood 283 mg/dL (75-99)
[2018-12-05 07:56] LABS: Glucose,Whole Blood 320 mg/dL (75-99)
[2018-12-05] MEDS: INSULIN DETEMIR (LEVEMIR) 100 UNIT/ML SYR SQ SCH (08:01)
[2018-12-05] MEDS: INSULIN ASPART (NovoLOG) 100 UNIT/ML VIAL SQ SCH ×4 (08:01→20:44)
[2018-12-05] MEDS: SULFAMETHOX-TMP 800-160MG 1 EACH TAB PO SCH ×2 (08:02→20:34)
[2018-12-05] MEDS: metFORMIN 500 MG TAB PO SCH (08:02)
[2018-12-05 08:56] LABS: ALT 80 U/L (9-52); AST 63 U/L (14-36); Albumin 3.8 g/dL (3.5-5.0); Alkaline Phosphatase 112 U/L (38-126); Bilirubin, Delta 0.1 mg/dL (0.0-0.2); Bilirubin,Unconjugated 0.3 mg/dL (0.0-1.1); Total Bilirubin 0.4 mg/dL (0.2-1.3)
[2018-12-05] MEDS ORDERED: INSULIN DETEMIR (LEVEMIR) 100 UNIT/ML SYR SQ ONE ×2 (12:05→22:57)
[2018-12-05 12:09] LABS: Glucose,Whole Blood 277 mg/dL (75-99)
[2018-12-05 13:32] LABS: Hemoglobin A1C 10.6 % (4.0-6.0)
[2018-12-05 13:49] LABS: Anion Gap 10 mmol/L; Blood Urea Nitrogen 15 mg/dL (7-17); Calcium 9.4 mg/dL (8.4-10.2); Carbon Dioxide 24 mmol/L (22-30); Chloride 103 mmol/L (98-107); Glucose 331 mg/dL (74-99); Potassium 4.7 mmol/L (3.5-5.1); Sodium 137 mmol/L (137-145)
[2018-12-05 16:27] LABS: Glucose,Whole Blood 350 mg/dL (75-99)
[2018-12-05] MEDS ORDERED: INSULIN DETEMIR (LEVEMIR) 100 UNIT/ML SYR SQ SCH (18:00)
[2018-12-05 20:22] LABS: Glucose,Whole Blood 381 mg/dL (75-99)
[2018-12-05 23:04] LABS: Glucose,Whole Blood 344 mg/dL (75-99)
[2018-12-06 06:04] LABS: Glucose,Whole Blood 295 mg/dL (75-99)
[2018-12-06] MEDS: INSULIN ASPART (NovoLOG) 100 UNIT/ML VIAL SQ SCH ×2 (06:08→12:08)
[2018-12-06] MEDS: metFORMIN 500 MG TAB PO SCH (07:51)
[2018-12-06] MEDS: SULFAMETHOX-TMP 800-160MG 1 EACH TAB PO SCH (07:52)
[2018-12-06] MEDS ORDERED: INSULIN DETEMIR (LEVEMIR) 100 UNIT/ML SYR SQ SCH ×2 (09:00→21:00)
[2018-12-06 09:42] LABS: Albumin 4.3 g/dL (3.5-5.0); Bilirubin, Delta 0.2 mg/dL (0.0-0.2); Bilirubin,Unconjugated 0.3 mg/dL (0.0-1.1); Total Bilirubin 0.5 mg/dL (0.2-1.3); Total Protein 7.9 g/dL (6.3-8.2)
[2018-12-06 12:01] LABS: Glucose,Whole Blood 201 mg/dL (75-99)
[2018-12-06 12:02] VITALS: BP 112/75; PULSE 68; RESP 18; TEMP 98.1
[2018-12-06 13:56] LABS: Glucose,Whole Blood 293 mg/dL (75-99)
--- NOTE | 2018-12-06 14:33 | P.PN ---
Subjective Date of service: 12/06/2018 Patient is seen and examined by me at bedside This is a pleasant 23 years old female with past medical history of diabetes mellitus. She presents to the hospital because of uncontrolled blood sugar and headache. Patient headache has resolved and she denies any other pain. Also patient was suspected to have urinary tract infection based on abnormal urine analysis however patient denies dysuria, urgency, change in frequency, discomfort regarding her urination which she states it's normal now and with no suprapubic tenderness or flank pain. Urine culture showing only elisa. I don' t think the patient has urinary tract infection. Vitals and labs reviewed looks stable. Patient has uncontrolled sugar she states long-acting insulin 35 units in the morning. We are going to increase that to 40 units daily and 10 or 20 units at bedtime. Patient is counseled extensively about compliance, risks are explained to the patient Objective - Vital Signs Vital signs: Vital Signs Temp 98.1 F 12/06/18 11:30 Pulse 68 12/06/18 11:30 Resp 18 12/06/18 11:30 BP 112/75 12/06/18 11:30 Pulse Ox 97 12/06/18 11:30 Intake & Output 12/05/18 12/06/18 12/06/18 18:59 06:59 18:59 Intake Total 1060 Balance 1060 Weight 83.824 kg Intake: Oral 1060 Other: # Voids 1 - Exam GENERAL: The patient is alert and oriented x3, not in any acute distress. Well developed, well nourished. HEENT: Pupils are round and equally reacting to light. EOMI. No scleral icterus. No conjunctival pallor. Normocephalic, atraumatic. No pharyngeal erythema. No thyromegaly. CARDIOVASCULAR: S1 and S2 present. No murmurs, rubs, or gallops. PULMONARY: Chest is clear to auscultation, no wheezing or crackles. ABDOMEN: Soft, nontender, nondistended, normoactive bowel sounds. No palpable organomegaly. MUSCULOSKELETAL: No joint swelling or deformity. EXTREMITIES: No cyanosis, clubbing, or pedal edema. NEUROLOGICAL: Gross neurological examination did not reveal any focal deficits. SKIN: No rashes. - Labs CBC & Chem 7: 12/04/18 01:55 12/05/18 07:54 Labs: Abnormal Lab Results - Last 24 Hours (Table) 12/05/18 12/05/18 12/05/18 Range/Units 16:25 20:20 23:02 POC Glucose (mg/dL) 350 H 381 H 344 H (75-99) mg/dL AST (14-36) U/L ALT (9-52) U/L 12/06/18 12/06/18 12/06/18 Range/Units 06:03 08:21 11:57 POC Glucose (mg/dL) 295 H 201 H (75-99) mg/dL AST 87 H (14-36) U/L ALT 95 H (9-52) U/L 12/06/18 Range/Units 13:51 POC Glucose (mg/dL) 293 H (75-99) mg/dL AST (14-36) U/L ALT (9-52) U/L Microbiology - Last 24 Hours (Table) 12/04/18 01:55 Urine Culture - Final Urine,Voided Assessment and Plan Assessment: Insulin-dependent diabetes mellitus, uncontrolled with hyperglycemia. Present on admission Headache, resolved Dehydration, resolved Obesity Abnormal UA. Unlikely patient have urinary tract infection. Antibiotics has more risks than benefits at this time, however patient received adequate antibiotic therapy. Plan: She is a pleasant 23 years old female presents with uncontrolled diabetes with hyperglycemia. We will increase in her insulin and follow-up the level. Labs and medication were reviewed.. Continue same treatment. Continue with symptomatic treatment. Resume home medication. Monitor lytes and vitals. DVT and GI prophylaxis. Further recommendations of the clinical course of the patient Prognosis is guarded
== END 2018-12-06 15:09 | disposition home or self-care (01) ==
LOC: EC 01:51 → INTOOBSV 08:15 → 3NMEDONC 08:15 → 6PED 12-05 05:43
PROVIDERS: ADMIT Internal Medicine; ATTEND Internal Medicine
DX: E11.65 Type 2 diabetes mellitus with hyperglycemia (principal); E86.0 Dehydration; R82.90 Unspecified abnormal findings in urine; E28.2 Polycystic ovarian syndrome; F17.200 Nicotine dependence, unspecified, uncomplicated; Z79.4 Long term (current) use of insulin; Z82.49 Family history of ischemic heart disease and other diseases of the circulatory system; Z82.61 Family history of arthritis; E66.9 Obesity, unspecified; Z68.37 Body mass index [BMI] 37.0-37.9, adult; Z83.79 Family history of other diseases of the digestive system
CPT/HCPCS: 96376; 96361; 96374; 96375; 99284; 36415; 80053; 80048; 80076 ×2; 82009; 85025; 81001; 81025; 87086; 83036; G0378 ×3; J2405; J1885

== ENCOUNTER → 2019-02-06 | Outpatient (CLI) | payer OTHER ==
--- NOTE | 2019-02-06 14:45 | XR ---
EXAMINATION TYPE: XR wrist complete RT DATE OF EXAM: 02/06/2019 COMPARISON: NONE HISTORY: Pain TECHNIQUE: Four views submitted. FINDINGS: The osseous structures are intact. The joint spaces are preserved and there is no acute fracture or dislocation. IMPRESSION: 1. No definite acute fracture or dislocation if symptoms persist, follow-up study in 7 to 10 days wo uld be suggested
== END ==
LOC: RADXRMAIN 14:11
PROVIDERS: ATTEND Emergency Medicine
DX: S63.501A Unspecified sprain of right wrist, initial encounter (principal)

== ENCOUNTER 2019-10-02 17:25 | Emergency (ER) | payer OTHER ==
[2019-10-02 18:06] LABS: Glucose,Whole Blood 429 mg/dL (75-99)
[2019-10-02] MEDS ORDERED: SODIUM CHLORIDE 0.9% 1,000 ML IV ONE ×2 (18:15→21:17)
[2019-10-02] MEDS ORDERED: SODIUM CHLORIDE 0.9% 500 ML 500 ML IV ONE (18:15)
--- NOTE | 2019-10-02 18:20 | ED ---
General Adult HPI - General Chief complaint: Recheck/Abnormal Lab/Rx Stated complaint: High Sugar/nausea Time Seen by Provider: 10/02/19 18:07 Source: patient Mode of arrival: ambulatory Limitations: no limitations - History of Present Illness Initial comments: 24 year-old female patient with past medical history significant for type 2 diabetes mellitus presents to the emergency department today for evaluation of elevated blood sugar nausea. Patient states she is having difficulty getting her sugars under control for the last 2 weeks. Patient states she is on 3 different diabetes medications. She denies any vomiting. States she did have an ear infection a month ago but no other illnesses. Denies any recent weight change. Denies any recent steroid use. Patient denies any recent rash, fever, chills, shortness breath, chest pain, abdominal pain, diarrhea, constipation, back pain, numbness, tingling, dizziness, weakness, hematuria, dysuria, urinary urgency, urinary frequency, headache, visual changes, or any other complaints. - Related Data Home Medications Medication Instructions Recorded Confirmed Insulin Aspart [NovoLOG] See Protocol SQ AC-TID 04/14/16 12/04/18 metFORMIN HCL [Glucophage] 1,000 mg PO DAILY 12/23/17 12/04/18 Previous Rx's Medication Instructions Recorded Insulin Detemir (Levemir) [Levemir] 25 unit SQ HS #1 vial 12/06/18 Insulin Detemir (Levemir) [Levemir] 40 unit SQ DAILY #1 vial 12/06/18 Nitrofurantoin Monohyd/M-Cryst 100 mg PO Q12HR #14 cap 10/02/19 [Macrobid] Allergies Allergy/AdvReac Type Severity Reaction Status Date / Time No Known Allergies Allergy Verified 12/04/18 07:22 Review of Systems ROS Statement: Those systems with pertinent positive or pertinent negative responses have been documented in the HPI. ROS Other: All systems not noted in ROS Statement are negative. Past Medical History Past Medical History: Diabetes Mellitus Additional Past Medical History / Comment(s): ovarian cysts, PCOS, blood transfusions History of Any Multi-Drug Resistant Organisms: None Reported Past Surgical History: Ear Surgery, Orthopedic Surgery Additional Past Surgical History / Comment(s): l ankle Past Anesthesia/Blood Transfusion Reactions: No Reported Reaction Past Psychological History: No Psychological Hx Reported, Anxiety Smoking Status: Current every day smoker Past Alcohol Use History: None Reported Past Drug Use History: None Reported - Past Family History Father Additional Family Medical History / Comment(s): back surgery, heart problems Mother Additional Family Medical History / Comment(s): DJD General Exam Limitations: no limitations General appearance: alert, in no apparent distress, other (This is a well- developed, well-nourished adult female patient in no acute distress. Vital s igns upon presentation are temperature 98.3F, pulse 111, respirations 20, blood pressure 137/81, pulse ox 99% on room air.) Eye exam: Present: normal appearance, PERRL, EOMI. Absent: scleral icterus, conjunctival injection, periorbital swelling ENT exam: Present: normal exam, normal oropharynx, mucous membranes moist, TM's normal bilaterally Respiratory exam: Present: normal lung sounds bilaterally. Absent: respiratory distress, wheezes, rales, rhonchi, stridor Cardiovascular Exam: Present: regular rate, normal rhythm, normal heart sounds. Absent: systolic murmur, diastolic murmur, rubs, gallop, clicks GI/Abdominal exam: Present: soft, normal bowel sounds. Absent: distended, tenderness, guarding, rebound, rigid Neurological exam: Present: alert, oriented X3, CN II-XII intact Psychiatric exam: Present: normal affect, normal mood Skin exam: Present: warm, dry, intact, normal color. Absent: rash Course Vital Signs 10/02/19 10/02/19 10/02/19 18:00 19:23 20:29 Temperature 98.3 F 97.6 F 97.6 F Pulse Rate 111 H 79 77 Respiratory 20 17 18 Rate Blood Pressure 137/81 124/80 121/71 O2 Sat by Pulse 99 97 100 Oximetry 10/02/19 10/02/19 21:40 22:34 Temperature 98.3 F Pulse Rate 82 79 Respiratory 18 18 Rate Blood Pressure 121/83 113/80 O2 Sat by Pulse 97 95 Oximetry Medical Decision Making - Medical Decision Making 24 year-old female patient presented to the emergency department today for evaluation of elevated blood sugar and nausea. Physical examination is unremarkable. Labs reviewed and did reveal elevated blood sugar. Acetone n egative. Anion gap 14. Urinalysis showed evidence for urinary tract infection. She was given IV antibiotics. We did improve sugar with IV fluids and insulin. Patient will be discharged to follow-up with her primary care physician. She is urged to keep a log of her blood sugars they can adjust her medications accordingly. Return parameters were discussed in detail. She verbalizes understanding and agrees with this plan. - Lab Data Result diagrams: 10/02/19 18:37 10/02/19 18:37 Lab Results 10/02/19 10/02/19 10/02/19 Range/Units 18:04 18:37 18:37 WBC 11.3 H (3.8-10.6) k/uL RBC 4.32 (3.80-5.40) m/uL Hgb 13.2 (11.4-16.0) gm/dL Hct 37.7 (34.0-46.0) % MCV 87.3 (80.0-100.0) fL MCH 30.6 (25.0-35.0) pg MCHC 35.1 (31.0-37.0) g/dL RDW 13.3 (11.5-15.5) % Plt Count 237 (150-450) k/uL Neutrophils % 70 % Lymphocytes % 23 % Monocytes % 3 % Eosinophils % 2 % Basophils % 0 % Neutrophils # 7.9 H (1.3-7.7) k/uL Lymphocytes # 2.6 (1.0-4.8) k/uL Monocytes # 0.3 (0-1.0) k/uL Eosinophils # 0.3 (0-0.7) k/uL Basophils # 0.0 (0-0.2) k/uL Sodium 138 (137-145) mmol/L Potassium 3.8 (3.5-5.1) mmol/L Chloride 103 (98-107) mmol/L Carbon Dioxide 21 L (22-30) mmol/L Anion Gap 14 mmol/L BUN 13 (7-17) mg/dL Creatinine 0.55 (0.52-1.04) mg/dL Est GFR (CKD-EPI)AfAm >90 (>60 ml/min/1.73 sqM) Est GFR (CKD-EPI)NonAf >90 (>60 ml/min/1.73 sqM) Glucose 417 H (74-99) mg/dL POC Glucose (mg/dL) 429 H (75-99) mg/dL POC Glu Air Carrier Inspector ID Rose Malone Calcium 9.7 (8.4-10.2) mg/dL Phosphorus 3.7 (2.5-4.5) mg/dL Magnesium 1.6 (1.6-2.3) mg/dL Total Bilirubin 0.3 (0.2-1.3) mg/dL AST 55 H (14-36) U/L ALT 68 H (9-52) U/L Alkaline Phosphatase 130 H (38-126) U/L Total Protein 7.7 (6.3-8.2) g/dL Albumin 4.3 (3.5-5.0) g/dL Urine Color Urine Appearance (Clear) Urine pH (5.0-8.0) Ur Specific [place] (1.001-1.035) Urine Protein (Negative) Urine Glucose (UA) (Negative) Urine Ketones (Negative) Urine Blood (Negative) Urine Nitrite (Negative) Urine Bilirubin (Negative) Urine Urobilinogen (<2.0) mg/dL Ur Leukocyte Esterase (Negative) Urine RBC (0-5) /hpf Urine WBC (0-5) /hpf Ur Squamous Epith Cells (0-4) /hpf Acetone, Qual Negative (Negative) 10/02/19 10/02/19 10/02/19 Range/Units 19:20 20:32 21:04 WBC (3.8-10.6) k/uL RBC (3.80-5.40) m/uL Hgb (11.4-16.0) gm/dL Hct (34.0-46.0) % MCV (80.0-100.0) fL MCH (25.0-35.0) pg MCHC (31.0-37.0) g/dL RDW (11.5-15.5) % Plt Count (150-450) k/uL Neutrophils % % Lymphocytes % % Monocytes % % Eosinophils % % Basophils % % Neutrophils # (1.3-7.7) k/uL Lymphocytes # (1.0-4.8) k/uL Monocytes # (0-1.0) k/uL Eosinophils # (0-0.7) k/uL Basophils # (0-0.2) k/uL Sodium (137-145) mmol/L Potassium (3.5-5.1) mmol/L Chloride (98-107) mmol/L Carbon Dioxide (22-30) mmol/L Anion Gap mmol/L BUN (7-17) mg/dL Creatinine (0.52-1.04) mg/dL Est GFR (CKD-EPI)AfAm (>60 ml/min/1.73 sqM) Est GFR (CKD-EPI)NonAf (>60 ml/min/1.73 sqM) Glucose (74-99) mg/dL POC Glucose (mg/dL) 361 H 340 H (75-99) mg/dL POC Glu Air Carrier Inspector ID Mozambican, Connie Mozambican, Connie Calcium (8.4-10.2) mg/dL Phosphorus (2.5-4.5) mg/dL Magnesium (1.6-2.3) mg/dL Total Bilirubin (0.2-1.3) mg/dL AST (14-36) U/L ALT (9-52) U/L Alkaline Phosphatase (38-126) U/L Total Protein (6.3-8.2) g/dL Albumin (3.5-5.0) g/dL Urine Color Light Yellow Urine Appearance Cloudy H (Clear) Urine pH 5.5 (5.0-8.0) Ur Specific [place] 1.034 (1.001-1.035) Urine Protein Negative (Negative) Urine Glucose (UA) 4+ H (Negative) Urine Ketones Trace H (Negative) Urine Blood Negative (Negative) Urine Nitrite Negative (Negative) Urine Bilirubin Negative (Negative) Urine Urobilinogen <2.0 (<2.0) mg/dL Ur Leukocyte Esterase Moderate H (Negative) Urine RBC 7 H (0-5) /hpf Urine WBC 40 H (0-5) /hpf Ur Squamous Epith Cells 8 H (0-4) /hpf Acetone, Qual (Negative) 10/02/19 Range/Units 22:32 WBC (3.8-10.6) k/uL RBC (3.80-5.40) m/uL Hgb (11.4-16.0) gm/dL Hct (34.0-46.0) % MCV (80.0-100.0) fL MCH (25.0-35.0) pg MCHC (31.0-37.0) g/dL RDW (11.5-15.5) % Plt Count (150-450) k/uL Neutrophils % % Lymphocytes % % Monocytes % % Eosinophils % % Basophils % % Neutrophils # (1.3-7.7) k/uL Lymphocytes # (1.0-4.8) k/uL Monocytes # (0-1.0) k/uL Eosinophils # (0-0.7) k/uL Basophils # (0-0.2) k/uL Sodium (137-145) mmol/L Potassium (3.5-5.1) mmol/L Chloride (98-107) mmol/L Carbon Dioxide (22-30) mmol/L Anion Gap mmol/L BUN (7-17) mg/dL Creatinine (0.52-1.04) mg/dL Est GFR (CKD-EPI)AfAm (>60 ml/min/1.73 sqM) Est GFR (CKD-EPI)NonAf (>60 ml/min/1.73 sqM) Glucose (74-99) mg/dL POC Glucose (mg/dL) 289 H (75-99) mg/dL POC Glu Air Carrier Inspector ID Mozambican, Connie Calcium (8.4-10.2) mg/dL Phosphorus (2.5-4.5) mg/dL Magnesium (1.6-2.3) mg/dL Total Bilirubin (0.2-1.3) mg/dL AST (14-36) U/L ALT (9-52) U/L Alkaline Phosphatase (38-126) U/L Total Protein (6.3-8.2) g/dL Albumin (3.5-5.0) g/dL Urine Color Urine Appearance (Clear) Urine pH (5.0-8.0) Ur Specific [place] (1.001-1.035) Urine Protein (Negative) Urine Glucose (UA) (Negative) Urine Ketones (Negative) Urine Blood (Negative) Urine Nitrite (Negative) Urine Bilirubin (Negative) Urine Urobilinogen (<2.0) mg/dL Ur Leukocyte Esterase (Negative) Urine RBC (0-5) /hpf Urine WBC (0-5) /hpf Ur Squamous Epith Cells (0-4) /hpf Acetone, Qual (Negative) Disposition Clinical Impression: Hyperglycemia, Urinary tract infection Disposition: HOME SELF-CARE Condition: Good Instructions (If sedation given, give patient instructions): Urinary Tract Infection in Women (ED), Diabetic Hyperglycemia (ED) Additional Instructions: Increase fluids. Continue home medications. Keep log of your blood sugars for your physician, you may need a medication adjustment. Return to the emergency department for any new, worsening, or concerning symptoms. Prescriptions: Nitrofurantoin Monohyd/M-Cryst [Macrobid] 100 mg PO Q12HR #14 cap Is patient prescribed a controlled substance at d/c from ED?: No Referrals: Faiza Leslie MD [Primary Care Provider] - 1-2 days Time of Disposition: 22:37
[2019-10-02 18:50] LABS: Basophils % (A) 0 %; Eosinophils # (A) 0.3 k/uL (0-0.7); Eosinophils % (A) 2 %; HCT 37.7 % (34.0-46.0); HGB 13.2 gm/dL (11.4-16.0); Lymphocytes # (A) 2.6 k/uL (1.0-4.8); Lymphocytes % (A) 23 %; MCH 30.6 pg (25.0-35.0); MCHC 35.1 g/dL (31.0-37.0); MCV 87.3 fL (80.0-100.0); Mean Platelet Volume 8.6; Monocytes # (A) 0.3 k/uL (0-1.0); Monocytes % (A) 3 %; Neutrophils # (A) 7.9 k/uL (1.3-7.7); Neutrophils % (A) 70 %; Platelet Count 237 k/uL (150-450); RBC 4.32 m/uL (3.80-5.40); RDW 13.3 % (11.5-15.5); WBC 11.3 k/uL (3.8-10.6)
[2019-10-02 19:11] LABS: ALT 68 U/L (9-52); AST 55 U/L (14-36); African American GFR (CKD) >90 (>60 ml/min/1.73 sqM); Albumin 4.3 g/dL (3.5-5.0); Alkaline Phosphatase 130 U/L (38-126); Anion Gap 14 mmol/L; Blood Urea Nitrogen 13 mg/dL (7-17); Calcium 9.7 mg/dL (8.4-10.2); Carbon Dioxide 21 mmol/L (22-30); Chloride 103 mmol/L (98-107); Glucose 417 mg/dL (74-99); Magnesium 1.6 mg/dL (1.6-2.3); Non-African American GFR(CKD) >90 (>60 ml/min/1.73 sqM); Phosphorus 3.7 mg/dL (2.5-4.5); Potassium 3.8 mmol/L (3.5-5.1); Sodium 138 mmol/L (137-145); Total Bilirubin 0.3 mg/dL (0.2-1.3); Total Protein 7.7 g/dL (6.3-8.2)
[2019-10-02] MEDS ORDERED: INSULIN ASPART (NovoLOG) 100 UNIT/ML VIAL SQ STA ×2 (19:38→21:30)
[2019-10-02 19:41] LABS: Appearance,Urine Cloudy (Clear); Bilirubin,Urine Negative (Negative); Blood,Urine Negative (Negative); Color,Urine Light Yellow; Glucose,Urine (UA) 4+ (Negative); Ketones,Urine Trace (Negative); Leukocyte Esterase,Urine Moderate (Negative); Nitrite,Urine Negative (Negative); PH, Urine 5.5 (5.0-8.0); Protein,Urine Negative (Negative); RBC,Urine 7 /hpf (0-5); Specific Gravity,Urine 1.034 (1.001-1.035); Squamous Epithelial Cell,Urine 8 /hpf (0-4); Urobilinogen,Urine <2.0 mg/dL (<2.0); WBC,Urine 40 /hpf (0-5)
[2019-10-02] MEDS ORDERED: cefTRIAXone IN SWFI 1,000 MG/10 ML SYRINGE IVP STA (19:53)
[2019-10-02 20:31] VITALS: RESP 18
[2019-10-02 20:34] LABS: Glucose,Whole Blood 361 mg/dL (75-99)
[2019-10-02 21:05] LABS: Glucose,Whole Blood 340 mg/dL (75-99)
[2019-10-02 22:34] VITALS: BP 113/80; PULSE 79; TEMP 98.3
[2019-10-02 22:34] LABS: Glucose,Whole Blood 289 mg/dL (75-99)
== END 2019-10-02 22:44 | disposition home or self-care (01) ==
LOC: EC 17:25
DX: E11.65 Type 2 diabetes mellitus with hyperglycemia (principal); N39.0 Urinary tract infection, site not specified; F17.200 Nicotine dependence, unspecified, uncomplicated; Z79.4 Long term (current) use of insulin
CPT/HCPCS: 36415; 80053; 82009; 83735; 84100; 85025; 81001; 87086; 99284; 96374; 96361 ×2; J0696

== ENCOUNTER 2020-02-20 21:03 | Emergency (ER) | payer OTHER ==
[2020-02-20 21:09] VITALS: BP 122/78; PULSE 99; RESP 20; TEMP 98.1
--- NOTE | 2020-02-20 21:42 | ED ---
General Adult HPI - General Chief complaint: Extremity Problem,Nontraumatic Stated complaint: ARM PAIN Time Seen by Provider: 02/20/20 21:14 Source: patient Mode of arrival: ambulatory Limitations: no limitations - History of Present Illness Initial comments: Dictation was produced using [employer] dictation software. please excuse any grammatical, word or spelling errors. This patient was cared for during a federal and state declared state of emergency secondary to Covid 19 Chief Complaint: 24-year-old female presents with right medial elbow pain. History of Present Illness: She is 24-year-old female she is a [employer]. She states that over the last week she's been having intermittent episodes of right medial elbow pain. She states that the pain causes numbness that shoots down her right upper extremity about the medial aspect. Urinalysis is worsened with movement. She states she uses her arms a lot at work. The ROS documented in this emergency department record has been reviewed and confirmed by me. Those systems with pertinent positive or negative responses have been documented in the HPI. All other systems are other negative and/or noncontributory. PHYSICAL EXAM: General Impression: Alert and oriented x3, not in acute distress HEENT: Normocephalic atraumatic, extra-ocular movements intact, pupils equal and reactive to light bilaterally, mucous membranes moist. Cardiovascular: Heart regular rate and rhythm Chest: Able to complete full sentences, no retractions, no tachypnea Abdomen: abdomen soft, non-tender, non-distended, no organomegaly Musculoskeletal: Pulses present and equal in all extremities, no peripheral edema Right upper extremity: Pain over the medial epicondyle. Symptoms of shooting numbness or reproduces palpation Motor: no focal deficits noted Neurological: CN II-XII grossly intact, no focal motor or sensory deficits noted Skin: Intact with no visualized rashes Psych: Normal affect and mood ED course: 24-year-old female presents with clinical presentation consistent with ulnar neuropathy secondary to cubital tunnel syndrome. Upon arrival are within acceptable limits. X-rays unremarkable. Patient told to rest and ice and rest the area. She is also told that her symptoms are likely from repetitive stress. Patient told to follow-up with her primary care physician regarding her symptoms. Patient be discharged. - Related Data Home Medications Medication Instructions Recorded Confirmed Insulin Aspart [NovoLOG] See Protocol SQ AC-TID 04/14/16 12/04/18 metFORMIN HCL [Glucophage] 1,000 mg PO DAILY 12/23/17 12/04/18 Previous Rx's Medication Instructions Recorded Insulin Detemir (Levemir) [Levemir] 25 unit SQ HS #1 vial 12/06/18 Insulin Detemir (Levemir) [Levemir] 40 unit SQ DAILY #1 vial 12/06/18 Nitrofurantoin Monohyd/M-Cryst 100 mg PO Q12HR #14 cap 10/02/19 [Macrobid] Allergies Allergy/AdvReac Type Severity Reaction Status Date / Time No Known Allergies Allergy Verified 02/20/20 21:09 Review of Systems ROS Statement: Those systems with pertinent positive or pertinent negative responses have been documented in the HPI. ROS Other: All systems not noted in ROS Statement are negative. Past Medical History Past Medical History: Diabetes Mellitus Additional Past Medical History / Comment(s): ovarian cysts, PCOS, blood transfusions History of Any Multi-Drug Resistant Organisms: None Reported Past Surgical History: Ear Surgery, Orthopedic Surgery Additional Past Surgical History / Comment(s): l ankle Past Anesthesia/Blood Transfusion Reactions: No Reported Reaction Past Psychological History: No Psychological Hx Reported, Anxiety Smoking Status: Former smoker Past Alcohol Use History: None Reported Past Drug Use History: None Reported - Past Family History Father Additional Family Medical History / Comment(s): back surgery, heart problems Mother Additional Family Medical History / Comment(s): DJD General Exam Limitations: no limitations Course Vital Signs 02/20/20 21:07 Temperature 98.1 F Pulse Rate 99 Respiratory 20 Rate Blood Pressure 122/78 O2 Sat by Pulse 99 Oximetry Disposition Clinical Impression: Cubital tunnel syndrome Disposition: HOME SELF-CARE Condition: Good Instructions (If sedation given, give patient instructions): Cubital Tunnel Syndrome (ED) Is patient prescribed a controlled substance at d/c from ED?: No Referrals: Faiza Leslie MD [Primary Care Provider] - 1-2 days Time of Disposition: 22:13
--- NOTE | 2020-02-20 21:55 | XR ---
EXAMINATION TYPE: XR elbow complete RT DATE OF EXAM: 02/20/2020 COMPARISON: NONE HISTORY: Elbow pain TECHNIQUE: 3 views FINDINGS: I see no fracture nor dislocation. Joint spaces are normal. There is no evidence of elbow j oint effusion. IMPRESSION: Negative right elbow exam.
[2020-02-20] MEDS ORDERED: ACET/COD 300 MG/30 MG STARTER PACK 6 TAB BTL PO STA (22:17)
== END 2020-02-20 22:31 | disposition home or self-care (01) ==
LOC: EC 21:03
DX: G56.21 Lesion of ulnar nerve, right upper limb (principal); E11.9 Type 2 diabetes mellitus without complications; Z79.4 Long term (current) use of insulin; Z87.891 Personal history of nicotine dependence
CPT/HCPCS: 99283

== ENCOUNTER → 2020-07-19 | Outpatient (CLI) | payer OTHER ==
--- NOTE | 2020-07-19 16:41 | XR ---
EXAMINATION TYPE: XR knee complete RT DATE OF EXAM: 07/19/2020 CLINICAL HISTORY: Lifting at job and twisted knee yesterday TECHNIQUE: Three views of the right knee are obtained. COMPARISON: None. FINDINGS: There is no acute fracture/dislocation evident in right knee. The tri-compartment joint s paces appear within normal limits. The overlying soft tissue appears unremarkable. IMPRESSION: There is no acute fracture or dislocation in the right knee.
== END | disposition home or self-care (01) ==
LOC: LABWHC1 13:46
PROVIDERS: ATTEND Emergency Medicine
DX: S83.91XA Sprain of unspecified site of right knee, initial encounter (principal); M25.561 Pain in right knee

== ENCOUNTER → 2020-09-05 | Outpatient (CLI) | payer OTHER ==
--- NOTE | 2020-09-05 11:52 | MR ---
EXAMINATION TYPE: MR brain wo/w con DATE OF EXAM: 09/05/2020 COMPARISON: Headaches HISTORY: Headache / Hx Recurrent Ear Infection TECHNIQUE: Multiplanar, multisequence images of the brain and brainstem is performed without and with IV contras t, utilizing 7.5 mL intravenous Gadavist . FINDINGS: Diffusion weighted images demonstrate no evidence of a recent infarct or other diffusion ab normality. There is a single 5 mm area of abnormal signal in the right parietal white matter is nonspecific. Dim inutive size of the vertebral basilar system associated with vertebrobasilar insufficiency. The ventr icular system and cisternal spaces are normal in size and appearance. The brain volume is age approp riate. Midline structures demonstrate normal morphology. The craniocervical junction appears within normal limits. Post contrast images demonstrate no abnormal enhancement. The dural venous sinuses appear pa tent. There is changes of chronic sinusitis and bilateral mastoiditis. Nasal septal deviation noted. IMPRESSION: 1. Moderate bilateral mastoiditis and moderate to severe chronic sinusitis. 2. Single nonspecific 5 mm area of abnormal signal in the right parietal white matter could been the basis of migraine headaches. Tiny area of remote ischemia or demyelinating disease not entirely exclu ded correlate clinically. 3. Diminutive vertebrobasilar system.
== END | disposition home or self-care (01) ==
LOC: RADMRIMAIN 08:44
PROVIDERS: ATTEND Family Medicine
DX: R93.0 Abnormal findings on diagnostic imaging of skull and head, not elsewhere classified (principal); Z86.69 Personal history of other diseases of the nervous system and sense organs
CPT/HCPCS: 70553; A9585

== ENCOUNTER 2020-09-18 19:58 | Emergency (ER) | payer OTHER ==
[2020-09-18 20:18] VITALS: RESP 18
[2020-09-18] MEDS ORDERED: ACETAMINOPHEN TAB 500 MG TAB PO STA (21:06)
[2020-09-18] MEDS ORDERED: KETOROLAC 15 MG/ML 1 ML VIAL IVP STA (21:07)
[2020-09-18] MEDS ORDERED: MORPHINE SULFATE 4 MG/ML SYRINGE IVP STA (21:07)
--- NOTE | 2020-09-18 21:28 | XR ---
EXAMINATION TYPE: XR chest 1V portable DATE OF EXAM: 09/18/2020 COMPARISON: 12/23/2017 HISTORY: Cough. Short of breath. Fever. TECHNIQUE: FINDINGS: Heart and mediastinum are normal. Lungs are clear. Diaphragm is normal. Bony thorax is inta ct. IMPRESSION: Normal chest. No change.
[2020-09-18 21:44] LABS: Basophils % (A) 1 %; Eosinophils # (A) 0.1 k/uL (0-0.7); Eosinophils % (A) 2 %; HCT 38.5 % (34.0-46.0); Lymphocytes # (A) 1.9 k/uL (1.0-4.8); Lymphocytes % (A) 42 %; MCHC 33.6 g/dL (31.0-37.0); MCV 89.3 fL (80.0-100.0); Mean Platelet Volume 8.4; Monocytes # (A) 0.3 k/uL (0-1.0); Monocytes % (A) 7 %; Neutrophils # (A) 2.2 k/uL (1.3-7.7); Neutrophils % (A) 47 %; Platelet Count 190 k/uL (150-450); RBC 4.32 m/uL (3.80-5.40); WBC 4.6 k/uL (3.8-10.6)
[2020-09-18 21:51] LABS: ALT 64 U/L (4-34); AST 47 U/L (14-36); African American GFR (CKD) >90 (>60 ml/min/1.73 sqM); Albumin 4.2 g/dL (3.5-5.0); Alkaline Phosphatase 89 U/L (38-126); Anion Gap 9 mmol/L; Blood Urea Nitrogen 12 mg/dL (7-17); C Reactive Protein 5.4 mg/L (<10.0); Calcium 9.2 mg/dL (8.4-10.2); Carbon Dioxide 26 mmol/L (22-30); Chloride 103 mmol/L (98-107); Glucose 152 mg/dL (74-99); LDH 379 U/L (313-618); Magnesium 1.8 mg/dL (1.6-2.3); Non-African American GFR(CKD) >90 (>60 ml/min/1.73 sqM); Potassium 3.9 mmol/L (3.5-5.1); Sodium 138 mmol/L (137-145); Total Bilirubin 0.3 mg/dL (0.2-1.3); Total Protein 7.5 g/dL (6.3-8.2)
--- NOTE | 2020-09-18 22:19 | ED ---
Recheck HPI - General Chief Complaint: Upper Respiratory Infection Stated Complaint: +COVID, Headache Time Seen by Provider: 09/18/20 21:06 Source: patient, RN notes reviewed, old records reviewed Mode of arrival: ambulatory Limitations: no limitations - History of Present Illness MD Complaint: abnormal lab (known COVID, HARRISON) -: days(s) Returns Today for: persistent/worsening pain related to initial visit (HARRISON) Symptoms Since Prior Visit: worsening pain, fever Context: planned re-check Associated Symptoms: fever, chills, nausea Treatments Prior to Arrival: other medications (fever control) - Related Data Home Medications Medication Instructions Recorded Confirmed Acetaminophen [Tylenol] 500 mg PO Q4-6H PRN 09/18/20 09/18/20 Dulaglutide [Trulicity] 1.5 mg SQ SA 09/18/20 09/18/20 Multivitamins, Thera [Multivitamin 1 tab PO DAILY 09/18/20 09/18/20 (formulary)] metFORMIN HCL ER [Glucophage Xr] 500 mg PO BID 09/18/20 09/18/20 Allergies Allergy/AdvReac Type Severity Reaction Status Date / Time No Known Allergies Allergy Verified 09/18/20 22:20 Review of Systems ROS Statement: Those systems with pertinent positive or pertinent negative responses have been documented in the HPI. ROS Other: All systems not noted in ROS Statement are negative. Past Medical History Past Medical History: Diabetes Mellitus Additional Past Medical History / Comment(s): ovarian cysts, PCOS, blood johnson sfusions History of Any Multi-Drug Resistant Organisms: None Reported Past Surgical History: Ear Surgery, Orthopedic Surgery Additional Past Surgical History / Comment(s): l ankle Past Anesthesia/Blood Transfusion Reactions: No Reported Reaction Past Psychological History: No Psychological Hx Reported, Anxiety Smoking Status: Never smoker Past Alcohol Use History: None Reported Past Drug Use History: None Reported - Past Family History Father Additional Family Medical History / Comment(s): back surgery, heart problems Mother Additional Family Medical History / Comment(s): DJD General Exam Limitations: no limitations General appearance: alert, in no apparent distress Head exam: Present: atraumatic, normocephalic, normal inspection Eye exam: Present: normal appearance, PERRL, EOMI. Absent: scleral icterus, conjunctival injection, periorbital swelling ENT exam: Present: normal exam, mucous membranes moist Neck exam: Present: normal inspection. Absent: tenderness, meningismus, lymphadenopathy Respiratory exam: Present: normal lung sounds bilaterally. Absent: respiratory distress, wheezes, rales, rhonchi, stridor Cardiovascular Exam: Present: regular rate, normal rhythm, normal heart sounds. Absent: systolic murmur, diastolic murmur, rubs, gallop, clicks GI/Abdominal exam: Present: soft, normal bowel sounds. Absent: distended, tenderness, guarding, rebound, rigid Extremities exam: Present: normal inspection, full ROM, normal capillary refill. Absent: tenderness, pedal edema, joint swelling, calf tenderness Back exam: Present: normal inspection Neurological exam: Present: alert, oriented X3, CN II-XII intact Psychiatric exam: Present: normal affect, normal mood Skin exam: Present: warm, dry, intact, normal color. Absent: rash Course Vital Signs 09/18/20 09/18/20 20:14 22:54 Temperature 99.8 F H 98.8 F Pulse Rate 86 67 Respiratory 18 18 Rate Blood Pressure 135/79 104/71 O2 Sat by Pulse 100 94 L Oximetry Medical Decision Making - Lab Data Result diagrams: 09/18/20 21:30 09/18/20 21:30 Lab Results 09/18/20 09/18/20 09/18/20 Range/Units 21:30 21:30 21:30 WBC 4.6 (3.8-10.6) k/uL RBC 4.32 (3.80-5.40) m/uL Hgb 13.0 (11.4-16.0) gm/dL Hct 38.5 (34.0-46.0) % MCV 89.3 (80.0-100.0) fL MCH 30.0 (25.0-35.0) pg MCHC 33.6 (31.0-37.0) g/dL RDW 13.0 (11.5-15.5) % Plt Count 190 (150-450) k/uL MPV 8.4 Neutrophils % 47 % Lymphocytes % 42 % Monocytes % 7 % Eosinophils % 2 % Basophils % 1 % Neutrophils # 2.2 (1.3-7.7) k/uL Lymphocytes # 1.9 (1.0-4.8) k/uL Monocytes # 0.3 (0-1.0) k/uL Eosinophils # 0.1 (0-0.7) k/uL Basophils # 0.0 (0-0.2) k/uL Sodium 138 (137-145) mmol/L Potassium 3.9 (3.5-5.1) mmol/L Chloride 103 (98-107) mmol/L Carbon Dioxide 26 (22-30) mmol/L Anion Gap 9 mmol/L BUN 12 (7-17) mg/dL Creatinine 0.61 (0.52-1.04) mg/dL Est GFR (CKD-EPI)AfAm >90 (>60 ml/min/1.73 sqM) Est GFR (CKD-EPI)NonAf >90 (>60 ml/min/1.73 sqM) Glucose 152 H (74-99) mg/dL Plasma Lactic Acid Jatin 1.4 (0.7-2.0) mmol/L Calcium 9.2 (8.4-10.2) mg/dL Magnesium 1.8 (1.6-2.3) mg/dL Ferritin 122.6 (10.0-291.0) ng/mL Total Bilirubin 0.3 (0.2-1.3) mg/dL AST 47 H (14-36) U/L ALT 64 H (4-34) U/L Alkaline Phosphatase 89 (38-126) U/L Lactate Dehydrogenase 379 (313-618) U/L C-Reactive Protein 5.4 (<10.0) mg/L Total Protein 7.5 (6.3-8.2) g/dL Albumin 4.2 (3.5-5.0) g/dL Procalcitonin (0.02-0.09) ng/mL 09/18/20 Range/Units 21:30 WBC (3.8-10.6) k/uL RBC (3.80-5.40) m/uL Hgb (11.4-16.0) gm/dL Hct (34.0-46.0) % MCV (80.0-100.0) fL MCH (25.0-35.0) pg MCHC (31.0-37.0) g/dL RDW (11.5-15.5) % Plt Count (150-450) k/uL MPV Neutrophils % % Lymphocytes % % Monocytes % % Eosinophils % % Basophils % % Neutrophils # (1.3-7.7) k/uL Lymphocytes # (1.0-4.8) k/uL Monocytes # (0-1.0) k/uL Eosinophils # (0-0.7) k/uL Basophils # (0-0.2) k/uL Sodium (137-145) mmol/L Potassium (3.5-5.1) mmol/L Chloride (98-107) mmol/L Carbon Dioxide (22-30) mmol/L Anion Gap mmol/L BUN (7-17) mg/dL Creatinine (0.52-1.04) mg/dL Est GFR (CKD-EPI)AfAm (>60 ml/min/1.73 sqM) Est GFR (CKD-EPI)NonAf (>60 ml/min/1.73 sqM) Glucose (74-99) mg/dL Plasma Lactic Acid Jatin (0.7-2.0) mmol/L Calcium (8.4-10.2) mg/dL Magnesium (1.6-2.3) mg/dL Ferritin (10.0-291.0) ng/mL Total Bilirubin (0.2-1.3) mg/dL AST (14-36) U/L ALT (4-34) U/L Alkaline Phosphatase (38-126) U/L Lactate Dehydrogenase (313-618) U/L C-Reactive Protein (<10.0) mg/L Total Protein (6.3-8.2) g/dL Albumin (3.5-5.0) g/dL Procalcitonin 0.08 (0.02-0.09) ng/mL - EKG Data -: EKG Interpreted by Me (EKG is sinus 79 PA 158 QRS 72 QTC 431) Disposition Clinical Impression: Coronavirus infection Disposition: HOME SELF-CARE Condition: Good Instructions (If sedation given, give patient instructions): Fever in Adults (ED), Viral Syndrome (ED) Is patient prescribed a controlled substance at d/c from ED?: No Referrals: Faiza Leslie MD [Primary Care Provider] - 1-2 days
[2020-09-18 22:55] VITALS: BP 104/71; PULSE 67; TEMP 98.8
[2020-09-19 03:05] LABS: Ferritin 122.6 ng/mL (10.0-291.0)
== END 2020-09-18 22:49 | disposition home or self-care (01) ==
LOC: EC 19:58
DX: U07.1 COVID-19 (principal); E11.9 Type 2 diabetes mellitus without complications; Z79.84 Long term (current) use of oral hypoglycemic drugs
CPT/HCPCS: 36415; 93005; 80053; 82728; 83605; 83615; 83735; 85025; 86140; 87040; 84145; 71045; 99284; 96374; 96375; J2270; J1885

== ENCOUNTER 2021-01-09 23:31 | Emergency (ER) | payer OTHER ==
[2021-01-09 23:38] VITALS: RESP 18
--- NOTE | 2021-01-09 23:50 | ED ---
Abdominal Pain HPI - General Chief Complaint: Abdominal Pain Stated Complaint: Back Pain Time Seen by Provider: 01/09/21 23:44 Source: patient, RN notes reviewed, old records reviewed Mode of arrival: ambulatory Limitations: no limitations, physical limitation - History of Present Illness Initial Comments: This is a 25-year-old female DF for evaluation abdominal pain. Patient complaining of right-sided abdominal pain right-sided back pain with radiation to groin. Patient states possible chance of . She does have some blood in her urine tonight. No history of kidney stones. No trauma no fevers. Symptoms are sudden onset 2 hours prior to arrival. No other significant medical history MD Complaint: abdominal pain, flank pain (R) -: hour(s) Location: R flank Radiation: R flank Migration to: RLQ, suprapubic Severity: moderate Severity scale (1-10): 7 Quality: stabbing Consistency: constant Improves With: nothing Worsens With: nothing Context: other (none) Associated Symptoms: nausea, hematuria Treatments Prior to Arrival: other (none) - Related Data Home Medications Medication Instructions Recorded Confirmed Acetaminophen [Tylenol] 500 mg PO Q4-6H PRN 09/18/20 09/18/20 Dulaglutide [Trulicity] 1.5 mg SQ SA 09/18/20 09/18/20 Multivitamins, Thera [Multivitamin 1 tab PO DAILY 09/18/20 09/18/20 (formulary)] metFORMIN HCL ER [Glucophage Xr] 500 mg PO BID 09/18/20 09/18/20 Allergies Allergy/AdvReac Type Severity Reaction Status Date / Time No Known Allergies Allergy Verified 09/18/20 22:20 Review of Systems ROS Statement: Those systems with pertinent positive or pertinent negative responses have been documented in the HPI. ROS Other: All systems not noted in ROS Statement are negative. Past Medical History Past Medical History: Diabetes Mellitus Additional Past Medical History / Comment(s): ovarian cysts, PCOS, blood transfusions History of Any Multi-Drug Resistant Organisms: None Reported Past Surgical History: Ear Surgery, Orthopedic Surgery Additional Past Surgical History / Comment(s): l ankle Past Anesthesia/Blood Transfusion Reactions: No Reported Reaction Past Psychological History: No Psychological Hx Reported, Anxiety Smoking Status: Never smoker Past Alcohol Use History: None Reported Past Drug Use History: None Reported - Past Family History Father Additional Family Medical History / Comment(s): back surgery, heart problems Mother Additional Family Medical History / Comment(s): DJD General Exam Limitations: physical limitation General appearance: alert, in no apparent distress Head exam: Present: atraumatic, normocephalic, normal inspection Eye exam: Present: normal appearance, PERRL, EOMI. Absent: scleral icterus, conjunctival injection, periorbital swelling ENT exam: Present: normal exam, mucous membranes moist Neck exam: Present: normal inspection. Absent: tenderness, meningismus, lymphadenopathy Respiratory exam: Present: normal lung sounds bilaterally. Absent: respiratory distress, wheezes, rales, rhonchi, stridor Cardiovascular Exam: Present: regular rate, normal rhythm, normal heart sounds. Absent: systolic murmur, diastolic murmur, rubs, gallop, clicks GI/Abdominal exam: Present: soft, normal bowel sounds. Absent: distended, tenderness, guarding, rebound, rigid Extremities exam: Present: normal inspection, full ROM, normal capillary refill. Absent: tenderness, pedal edema, joint swelling, calf tenderness Back exam: Present: normal inspection Neurological exam: Present: alert, oriented X3, CN II-XII intact Psychiatric exam: Present: normal affect, normal mood Skin exam: Present: warm, dry, intact, normal color. Absent: rash Course Vital Signs 01/09/21 01/10/21 23:33 01:48 Temperature 97.3 F L 97.5 F L Pulse Rate 79 59 L Respiratory 18 18 Rate Blood Pressure 140/77 107/67 O2 Sat by Pulse 97 100 Oximetry - Reevaluation(s) Reevaluation #1: 01/09/21 23:50 Medical records reviewed Medical Decision Making - Lab Data Result diagrams: 01/10/21 00:02 01/10/21 00:02 Lab Results 01/09/21 01/10/21 01/10/21 Range/Units 23:52 00:02 00:02 WBC 12.0 H (3.8-10.6) k/uL RBC 4.29 (3.80-5.40) m/uL Hgb 13.0 (11.4-16.0) gm/dL Hct 37.3 (34.0-46.0) % MCV 87.0 (80.0-100.0) fL MCH 30.3 (25.0-35.0) pg MCHC 34.8 (31.0-37.0) g/dL RDW 13.5 (11.5-15.5) % Plt Count 241 (150-450) k/uL MPV 8.6 Neutrophils % 63 % Lymphocytes % 28 % Monocytes % 4 % Eosinophils % 3 % Basophils % 1 % Neutrophils # 7.5 (1.3-7.7) k/uL Lymphocytes # 3.4 (1.0-4.8) k/uL Monocytes # 0.5 (0-1.0) k/uL Eosinophils # 0.4 (0-0.7) k/uL Basophils # 0.1 (0-0.2) k/uL Sodium (137-145) mmol/L Potassium (3.5-5.1) mmol/L Chloride (98-107) mmol/L Carbon Dioxide (22-30) mmol/L Anion Gap mmol/L BUN (7-17) mg/dL Creatinine (0.52-1.04) mg/dL Est GFR (CKD-EPI)AfAm (>60 ml/min/1.73 sqM) Est GFR (CKD-EPI)NonAf (>60 ml/min/1.73 sqM) Glucose (74-99) mg/dL POC Glucose (mg/dL) 355 H (75-99) mg/dL POC Glu Driver Material Handler ID Chelsi Mckenzie Calcium (8.4-10.2) mg/dL Total Bilirubin (0.2-1.3) mg/dL AST (14-36) U/L ALT (4-34) U/L Alkaline Phosphatase (38-126) U/L Total Protein (6.3-8.2) g/dL Albumin (3.5-5.0) g/dL Amylase (30-110) U/L Lipase (23-300) U/L Urine Color Yellow Urine Appearance Cloudy H (Clear) Urine pH 5.5 (5.0-8.0) Ur Specific [place] 1.023 (1.001-1.035) Urine Protein Trace H (Negative) Urine Glucose (UA) 4+ H (Negative) Urine Ketones Negative (Negative) Urine Blood Large H (Negative) Urine Nitrite Negative (Negative) Urine Bilirubin Negative (Negative) Urine Urobilinogen <2.0 (<2.0) mg/dL Ur Leukocyte Esterase Small H (Negative) Urine RBC >182 H (0-5) /hpf Urine WBC 36 H (0-5) /hpf Ur Squamous Epith Cells 3 (0-4) /hpf Urine Bacteria Rare H (None) /hpf Urine HCG, Qual (Not Detectd) 01/10/21 01/10/21 01/10/21 Range/Units 00:02 00:02 01:54 WBC (3.8-10.6) k/uL RBC (3.80-5.40) m/uL Hgb (11.4-16.0) gm/dL Hct (34.0-46.0) % MCV (80.0-100.0) fL MCH (25.0-35.0) pg MCHC (31.0-37.0) g/dL RDW (11.5-15.5) % Plt Count (150-450) k/uL MPV Neutrophils % % Lymphocytes % % Monocytes % % Eosinophils % % Basophils % % Neutrophils # (1.3-7.7) k/uL Lymphocytes # (1.0-4.8) k/uL Monocytes # (0-1.0) k/uL Eosinophils # (0-0.7) k/uL Basophils # (0-0.2) k/uL Sodium 136 L (137-145) mmol/L Potassium 4.0 (3.5-5.1) mmol/L Chloride 100 (98-107) mmol/L Carbon Dioxide 26 (22-30) mmol/L Anion Gap 10 mmol/L BUN 13 (7-17) mg/dL Creatinine 0.58 (0.52-1.04) mg/dL Est GFR (CKD-EPI)AfAm >90 (>60 ml/min/1.73 sqM) Est GFR (CKD-EPI)NonAf >90 (>60 ml/min/1.73 sqM) Glucose 359 H (74-99) mg/dL POC Glucose (mg/dL) 267 H (75-99) mg/dL POC Glu Driver Material Handler ID Chelsi Mckenzie Calcium 9.3 (8.4-10.2) mg/dL Total Bilirubin 0.2 (0.2-1.3) mg/dL AST 28 (14-36) U/L ALT 35 H (4-34) U/L Alkaline Phosphatase 135 H (38-126) U/L Total Protein 7.8 (6.3-8.2) g/dL Albumin 4.5 (3.5-5.0) g/dL Amylase 32 (30-110) U/L Lipase 176 (23-300) U/L Urine Color Urine Appearance (Clear) Urine pH (5.0-8.0) Ur Specific [place] (1.001-1.035) Urine Protein (Negative) Urine Glucose (UA) (Negative) Urine Ketones (Negative) Urine Blood (Negative) Urine Nitrite (Negative) Urine Bilirubin (Negative) Urine Urobilinogen (<2.0) mg/dL Ur Leukocyte Esterase (Negative) Urine RBC (0-5) /hpf Urine WBC (0-5) /hpf Ur Squamous Epith Cells (0-4) /hpf Urine Bacteria (None) /hpf Urine HCG, Qual Not Detected (Not Detectd) Disposition Clinical Impression: UTI (urinary tract infection), Kidney stones, Abdominal pain Disposition: HOME SELF-CARE Condition: Good Instructions (If sedation given, give patient instructions): Kidney Stones (ED) Is patient prescribed a controlled substance at d/c from ED?: No Referrals: Faiza Leslie MD [Primary Care Provider] - 1-2 days
[2021-01-09 23:54] LABS: Glucose,Whole Blood 355 mg/dL (75-99)
[2021-01-09] MEDS ORDERED: KETOROLAC 15 MG/ML 1 ML VIAL IVP STA (23:58)
[2021-01-09] MEDS ORDERED: MORPHINE SULFATE 4 MG/ML SYRINGE IV STA (23:58)
[2021-01-09] MEDS ORDERED: SODIUM CHLORIDE 0.9% 1,000 ML IV STA (23:58)
[2021-01-10 00:17] LABS: Basophils # (A) 0.1 k/uL (0-0.2); Basophils % (A) 1 %; Eosinophils # (A) 0.4 k/uL (0-0.7); Eosinophils % (A) 3 %; HCT 37.3 % (34.0-46.0); Lymphocytes # (A) 3.4 k/uL (1.0-4.8); Lymphocytes % (A) 28 %; MCH 30.3 pg (25.0-35.0); MCHC 34.8 g/dL (31.0-37.0); Mean Platelet Volume 8.6; Monocytes # (A) 0.5 k/uL (0-1.0); Monocytes % (A) 4 %; Neutrophils # (A) 7.5 k/uL (1.3-7.7); Neutrophils % (A) 63 %; Platelet Count 241 k/uL (150-450); RBC 4.29 m/uL (3.80-5.40); RDW 13.5 % (11.5-15.5)
[2021-01-10 00:34] LABS: ALT 35 U/L (4-34); AST 28 U/L (14-36); African American GFR (CKD) >90 (>60 ml/min/1.73 sqM); Albumin 4.5 g/dL (3.5-5.0); Alkaline Phosphatase 135 U/L (38-126); Amylase 32 U/L (30-110); Anion Gap 10 mmol/L; Blood Urea Nitrogen 13 mg/dL (7-17); Calcium 9.3 mg/dL (8.4-10.2); Carbon Dioxide 26 mmol/L (22-30); Chloride 100 mmol/L (98-107); Glucose 359 mg/dL (74-99); Lipase 176 U/L (23-300); Non-African American GFR(CKD) >90 (>60 ml/min/1.73 sqM); Sodium 136 mmol/L (137-145); Total Bilirubin 0.2 mg/dL (0.2-1.3); Total Protein 7.8 g/dL (6.3-8.2)
[2021-01-10 00:36] LABS: Appearance,Urine Cloudy (Clear); Bacteria,Urine Rare /hpf; Bilirubin,Urine Negative (Negative); Blood,Urine Large (Negative); Color,Urine Yellow; Glucose,Urine (UA) 4+ (Negative); Ketones,Urine Negative (Negative); Leukocyte Esterase,Urine Small (Negative); Nitrite,Urine Negative (Negative); PH, Urine 5.5 (5.0-8.0); Protein,Urine Trace (Negative); RBC,Urine >182 /hpf (0-5); Specific Gravity,Urine 1.023 (1.001-1.035); Squamous Epithelial Cell,Urine 3 /hpf (0-4); Urobilinogen,Urine <2.0 mg/dL (<2.0); WBC,Urine 36 /hpf (0-5)
--- NOTE | 2021-01-10 01:04 | CT ---
EXAM: CT Abdomen and Pelvis Without Intravenous Contrast CLINICAL HISTORY: ITS.REASON CT Reason: abdominal pain TECHNIQUE: Axial computed tomography images of the abdomen and pelvis without intravenous contrast. CTDI is 12.27 mGy and DLP is 713 mGy-cm. This CT exam was performed using one or more of the following dose reduction techniques: automated exposure control, adjustment of the mA and/or kV according to patient size, and/or use of iterative reconstruction technique. COMPARISON: No relevant prior studies available. FINDINGS: Lung bases: Hepatomegaly with hepatic steatosis. Focal fatty sparing adjacent to the gallbladder. No mass. No consolidation. ABDOMEN: Liver: Unremarkable. Gallbladder and bile ducts: Unremarkable. No calcified stones. No ductal dilation. Pancreas: Unremarkable. No ductal dilation. Spleen: Unremarkable. No splenomegaly. Adrenals: Unremarkable. No mass. Kidneys and ureters: Unremarkable. No obstructing stones. No hydronephrosis. Stomach and bowel: Mild fecal burden throughout the colon.. No obstruction. No mucosal thickening. PELVIS: Appendix: No findings to suggest acute appendicitis. Bladder: Unremarkable. No stones. Reproductive: Unremarkable as visualized. ABDOMEN and PELVIS: Intraperitoneal space: Unremarkable. No free air. No significant fluid collection. Bones/joints: No acute fracture. No dislocation. Soft tissues: Unremarkable. Vasculature: Unremarkable. No abdominal aortic aneurysm. Lymph nodes: Unremarkable. No enlarged lymph nodes. IMPRESSION: 1. No acute intra-abdominal process. 2. Hepatic steatosis.
[2021-01-10] MEDS ORDERED: cefTRIAXone IN SWFI 1,000 MG/10 ML SYRINGE IVP STA (01:16)
[2021-01-10 01:49] VITALS: BP 107/67; PULSE 59; TEMP 97.5
[2021-01-10 01:57] LABS: Glucose,Whole Blood 267 mg/dL (75-99)
[2021-01-10] MEDS ORDERED: CEPHALEXIN 500 MG CAP PO STA (01:58)
[2021-01-10] MEDS ORDERED: ACET/COD 300 MG/30 MG STARTER PACK 6 TAB BTL PO STA (01:58)
[2021-01-10] MEDS ORDERED: CEPHALEXIN 500MG STARTER PACK 4 CAP BTL PO STA (01:58)
== END 2021-01-10 02:16 | disposition home or self-care (01) ==
LOC: EC 23:31
DX: N39.0 Urinary tract infection, site not specified (principal); N20.0 Calculus of kidney; E11.9 Type 2 diabetes mellitus without complications; Z79.84 Long term (current) use of oral hypoglycemic drugs
CPT/HCPCS: 36415; 80053; 82150; 83690; 85025; 81001; 81025; 87086; 87077; 87186; 74176; 99284; 96374; 96375; 96361; J2270; J0696; J1885

== ENCOUNTER 2021-07-31 22:00 | Emergency (ER) | payer OTHER ==
[2021-07-31 22:22] VITALS: RESP 18
[2021-07-31] MEDS ORDERED: PROCHLORPERAZINE 5 MG TAB PO STA (22:53)
[2021-07-31] MEDS ORDERED: AMOXIC-POT CLAV 875-125MG 1 EACH TAB PO STA (22:53)
[2021-07-31] MEDS ORDERED: diphenhydrAMINE 50 MG CAP PO STA (22:53)
[2021-07-31] MEDS ORDERED: KETOROLAC 15 MG/ML 1 ML VIAL IM STA (22:53)
[2021-07-31] MEDS ORDERED: LORATADINE-PSEUDOEPH 5-120 MG 1 EACH TAB.ER.12H PO STA (22:53)
--- NOTE | 2021-07-31 22:55 | ED ---
ENT HPI - General Chief complaint: Nausea/Vomiting/Diarrhea Stated complaint: Headache,Nausea,Vomiting Time Seen by Provider: 07/31/21 22:36 Source: patient, RN notes reviewed, old records reviewed Mode of arrival: ambulatory Limitations: no limitations - History of Present Illness Initial comments: This is a 26-year-old female the emergency room today. Patient presents today for evaluation of not feeling well. Patient complains today of headache migraine headache with right ear pain sore throat. She has felt maybe febrile. Patient states that she did have coronavirus a few months ago. Otherwise she disorder from diabetes blood sugars been running well. No significant increasing urination. Otherwise no significant trauma or any other complaints MD complaint: sore throat, ear pain (Right) -: days(s) (3) Location: R ear, throat Severity: moderate Quality: stabbing, aching Consistency: constant Improves with: none Worsens with: none Context- Ear: recent illness (Coronavirus a few months ago) Associated Symptoms: sore throat, tinnitus, hearing loss (Diminished hearing) - Related Data Home Medications Medication Instructions Recorded Confirmed Acetaminophen [Tylenol] 500 mg PO Q4-6H PRN 09/18/20 09/18/20 Dulaglutide [Trulicity] 1.5 mg SQ SA 09/18/20 09/18/20 Multivitamins, Thera [Multivitamin 1 tab PO DAILY 09/18/20 09/18/20 (formulary)] metFORMIN HCL ER [Glucophage Xr] 500 mg PO BID 09/18/20 09/18/20 Previous Rx's Medication Instructions Recorded Cephalexin [Keflex] 500 mg PO Q8HR 7 Days #21 cap 01/10/21 Allergies Allergy/AdvReac Type Severity Reaction Status Date / Time No Known Allergies Allergy Verified 07/31/21 22:21 Review of Systems ROS Statement: Those systems with pertinent positive or pertinent negative responses have been documented in the HPI. ROS Other: All systems not noted in ROS Statement are negative. Past Medical History Past Medical History: Diabetes Mellitus Additional Past Medical History / Comment(s): ovarian cysts, PCOS, blood transfusions History of Any Multi-Drug Resistant Organisms: None Reported Past Surgical History: Ear Surgery, Orthopedic Surgery Additional Past Surgical History / Comment(s): l ankle Past Anesthesia/Blood Transfusion Reactions: No Reported Reaction Past Psychological History: No Psychological Hx Reported, Anxiety Smoking Status: Never smoker Past Alcohol Use History: None Reported Past Drug Use History: None Reported - Past Family History Father Additional Family Medical History / Comment(s): back surgery, heart problems Mother Additional Family Medical History / Comment(s): DJD General Exam Limitations: no limitations General appearance: alert, in no apparent distress Head exam: Present: atraumatic, normocephalic, normal inspection Eye exam: Present: normal appearance, PERRL, EOMI. Absent: scleral icterus, conjunctival injection, periorbital swelling ENT exam: Present: normal exam, mucous membranes moist. Absent: TM's normal bilaterally (Right otitis media) Neck exam: Present: normal inspection. Absent: tenderness, meningismus, lymphadenopathy Respiratory exam: Present: normal lung sounds bilaterally. Absent: respiratory distress, wheezes, rales, rhonchi, stridor Cardiovascular Exam: Present: regular rate, normal rhythm, normal heart sounds. Absent: systolic murmur, diastolic murmur, rubs, gallop, clicks GI/Abdominal exam: Present: soft, normal bowel sounds. Absent: distended, tenderness, guarding, rebound, rigid Extremities exam: Present: normal inspection, full ROM, normal capillary refill. Absent: tenderness, pedal edema, joint swelling, calf tenderness Back exam: Present: normal inspection Neurological exam: Present: alert, oriented X3, CN II-XII intact Psychiatric exam: Present: normal affect, normal mood Skin exam: Present: warm, dry, intact, normal color. Absent: rash Course Vital Signs 07/31/21 22:18 Temperature 98.5 F Pulse Rate 78 Respiratory 18 Rate Blood Pressure 120/82 O2 Sat by Pulse 98 Oximetry - Reevaluation(s) Reevaluation #1: 07/31/21 23:22 Medical record is reviewed Reevaluation #2: 07/31/21 23:23 Patient symptoms are improved Reevaluation #3: 07/31/21 23:23 Patient again informed of results, questions answered Medical Decision Making - Medical Decision Making 26 female with acute on chronic migraine headache complicated by right ear otitis media, patient placed on antibiotics and can be discharged home Disposition Clinical Impression: Migraine headache, Right otitis media Disposition: HOME SELF-CARE Condition: Good Instructions (If sedation given, give patient instructions): Serous Otitis Media (ED) Is patient prescribed a controlled substance at d/c from ED?: No Referrals: Faiza Leslie MD [Primary Care Provider] - 1-2 days
[2021-07-31] MEDS ORDERED: AMOXIC-POT CLAV 875MG STARTER PACK 2 TAB BTL PO STA (23:24)
[2021-07-31] MEDS ORDERED: ONDANSETRON 4 MG ODT STARTER PACK 2 TAB BTL PO STA (23:24)
[2021-07-31] MEDS ORDERED: IBUPROFEN 600 MG STARTER PACK 4 TAB BTL PO STA (23:24)
[2021-08-01 00:03] VITALS: BP 117/86; PULSE 73; TEMP 97.8
== END 2021-08-01 00:02 | disposition home or self-care (01) ==
LOC: EC 22:00
DX: G43.909 Migraine, unspecified, not intractable, without status migrainosus (principal); H66.91 Otitis media, unspecified, right ear; E11.9 Type 2 diabetes mellitus without complications; Z79.84 Long term (current) use of oral hypoglycemic drugs
CPT/HCPCS: 99283; S0183; S0119

== ENCOUNTER 2021-09-15 19:14 | Emergency (ER) | payer OTHER ==
[2021-09-15 20:53] VITALS: RESP 18
[2021-09-15] MEDS ORDERED: cefTRIAXone 500 MG VIAL IM STA (22:28)
[2021-09-15] MEDS ORDERED: AZITHROMYCIN 250 MG TAB PO STA (22:30)
[2021-09-15] MEDS ORDERED: FLUCONAZOLE 150 MG TAB PO STA (22:30)
[2021-09-15 22:31] LABS: Glucose,Whole Blood 130 mg/dL (75-99)
[2021-09-15 22:36] VITALS: PULSE 77
[2021-09-15 22:47] LABS: Appearance,Urine Clear (Clear); Bilirubin,Urine Negative (Negative); Blood,Urine Negative (Negative); Color,Urine Yellow; Glucose,Urine (UA) Negative (Negative); Ketones,Urine Negative (Negative); Leukocyte Esterase,Urine Large (Negative); Mucus,Urine Rare /hpf; Nitrite,Urine Negative (Negative); Protein,Urine Trace (Negative); RBC,Urine 9 /hpf (0-5); Specific Gravity,Urine 1.033 (1.001-1.035); Squamous Epithelial Cell,Urine 3 /hpf (0-4); Urobilinogen,Urine <2.0 mg/dL (<2.0); WBC,Urine 37 /hpf (0-5)
--- NOTE | 2021-09-15 22:59 | ED ---
Female Urogenital HPI - General Chief complaint: Urogenital Stated complaint: STD test Time Seen by Provider: 09/15/21 20:50 Source: patient Mode of arrival: ambulatory Limitations: no limitations - History of Present Illness Initial comments: 26-year-old female past medical history of diabetes, PCO as presents to the emergency department requesting testing and treatment for chlamydia. Patient reports that her partner tested positive for chlamydia. She has been having some discharge. Denies itching. Denies concern for . No abnormal vaginal bleeding. Denies fevers. No pelvic pain. She reports that her glucose has been running moderately high which she states is common for her when she has an infection. No reported fevers. No issues with her urination to include dysuria, hematuria or difficulty voiding. No changes in her bowel movements. No other alleviating, precipitating or modifying factors - Related Data Home Medications Medication Instructions Recorded Confirmed Acetaminophen [Tylenol] 500 mg PO Q4-6H PRN 09/18/20 09/18/20 Dulaglutide [Trulicity] 1.5 mg SQ SA 09/18/20 09/18/20 Multivitamins, Thera [Multivitamin 1 tab PO DAILY 09/18/20 09/18/20 (formulary)] metFORMIN HCL ER [Glucophage Xr] 500 mg PO BID 09/18/20 09/18/20 Previous Rx's Medication Instructions Recorded Cephalexin [Keflex] 500 mg PO Q8HR 7 Days #21 cap 01/10/21 Amoxic-Pot Clav 875-125Mg 1 tab PO Q12HR #20 tablet 07/31/21 [Augmentin 875-125] Allergies Allergy/AdvReac Type Severity Reaction Status Date / Time No Known Allergies Allergy Verified 09/15/21 20:53 Review of Systems ROS Statement: Those systems with pertinent positive or pertinent negative responses have been documented in the HPI. ROS Other: All systems not noted in ROS Statement are negative. Past Medical History Past Medical History: Diabetes Mellitus Additional Past Medical History / Comment(s): ovarian cysts, PCOS, blood transfusions History of Any Multi-Drug Resistant Organisms: None Reported Past Surgical History: Ear Surgery, Orthopedic Surgery Additional Past Surgical History / Comment(s): l ankle Past Anesthesia/Blood Transfusion Reactions: No Reported Reaction Past Psychological History: No Psychological Hx Reported, Anxiety Smoking Status: Current every day smoker, Vaper Past Alcohol Use History: None Reported Past Drug Use History: Marijuana - Past Family History Father Additional Family Medical History / Comment(s): back surgery, heart problems Mother Additional Family Medical History / Comment(s): DJD General Exam Limitations: no limitations General appearance: alert, in no apparent distress Head exam: Present: atraumatic, normocephalic, normal inspection Eye exam: Present: normal appearance, PERRL, EOMI. Absent: scleral icterus, conjunctival injection, periorbital swelling ENT exam: Present: normal exam, mucous membranes moist Neck exam: Present: normal inspection. Absent: tenderness, meningismus, lymphadenopathy Respiratory exam: Present: normal lung sounds bilaterally. Absent: respiratory distress, wheezes, rales, rhonchi, stridor Cardiovascular Exam: Present: regular rate, normal rhythm, normal heart sounds. Absent: systolic murmur, diastolic murmur, rubs, gallop, clicks GI/Abdominal exam: Present: soft, normal bowel sounds. Absent: distended, tenderness, guarding, rebound, rigid Extremities exam: Present: normal inspection, full ROM, normal capillary refill. Absent: tenderness, pedal edema, joint swelling, calf tenderness Back exam: Present: normal inspection Neurological exam: Present: alert, oriented X3, CN II-XII intact Psychiatric exam: Present: normal affect, normal mood Skin exam: Present: warm, dry, intact, normal color. Absent: rash Course Vital Signs 09/15/21 09/15/21 09/15/21 20:47 22:31 23:30 Temperature 97.6 F 98.6 F Pulse Rate 73 77 77 Respiratory 18 18 18 Rate Blood Pressure 116/77 119/71 118/75 O2 Sat by Pulse 99 100 98 Oximetry Medical Decision Making - Medical Decision Making Upon arrival patient is placed into room 3. She does provide a urine sample which is sent for chlamydia and gonorrhea. No bacteria in the urine sample. HCG not detected. Glucose is 130. Did recommend pelvic exam however the patient is refusing at this time. Will be empirically treated for chlamydia and gonorrhea. She will also be given a tablet of Diflucan to be taken at home tomorrow she reports to yeast infections with antibiotic use. Patient needs to follow up with her primary care doctor. Refrain from sexual intercourse until symptoms resolve. Should be tested for other sexually transmitted infections including HIV and hepatitis. Return to the emergency department for any new or worsening symptoms - Lab Data Lab Results 09/15/21 09/15/21 09/15/21 Range/Units 21:00 21:00 21:00 POC Glucose (mg/dL) (75-99) mg/dL POC Glu Rn Field Case Manager ID Urine Color Yellow Urine Appearance Clear (Clear) Urine pH 6.0 (5.0-8.0) Ur Specific [place] 1.033 (1.001-1.035) Urine Protein Trace H (Negative) Urine Glucose (UA) Negative (Negative) Urine Ketones Negative (Negative) Urine Blood Negative (Negative) Urine Nitrite Negative (Negative) Urine Bilirubin Negative (Negative) Urine Urobilinogen <2.0 (<2.0) mg/dL Ur Leukocyte Esterase Large H (Negative) Urine RBC 9 H (0-5) /hpf Urine WBC 37 H (0-5) /hpf Ur Squamous Epith Cells 3 (0-4) /hpf Urine Mucus Rare H (None) /hpf Urine HCG, Qual Not Detected (Not Detectd) Chlamydia Source Urine Chlamydia DNA (PCR) Negative (Neg,Equiv) N. gonorrhoeae Source Urine N.gonorrhoeae DNA Probe Negative (Neg,Equiv) 09/15/21 Range/Units 22:30 POC Glucose (mg/dL) 130 H (75-99) mg/dL POC Glu Rn Field Case Manager ID Jayce Valencia Urine Color Urine Appearance (Clear) Urine pH (5.0-8.0) Ur Specific [place] (1.001-1.035) Urine Protein (Negative) Urine Glucose (UA) (Negative) Urine Ketones (Negative) Urine Blood (Negative) Urine Nitrite (Negative) Urine Bilirubin (Negative) Urine Urobilinogen (<2.0) mg/dL Ur Leukocyte Esterase (Negative) Urine RBC (0-5) /hpf Urine WBC (0-5) /hpf Ur Squamous Epith Cells (0-4) /hpf Urine Mucus (None) /hpf Urine HCG, Qual (Not Detectd) Chlamydia Source Chlamydia DNA (PCR) (Neg,Equiv) N. gonorrhoeae Source N.gonorrhoeae DNA Probe (Neg,Equiv) Disposition Clinical Impression: Vaginal discharge, Contact with and (suspected) exposure to infections with a predominantly sexual mode of transmission Disposition: HOME SELF-CARE Condition: Stable Instructions (If sedation given, give patient instructions): Safe Sex (ED) Additional Instructions: Please follow up with your primary care doctor. Return to the emergency department for any new or worsening symptoms Is patient prescribed a controlled substance at d/c from ED?: No Referrals: Faiza Leslie MD [Primary Care Provider] - 1-2 days Time of Disposition: 22:59
[2021-09-15] MEDS ORDERED: AZITHROMYCIN 500 MG TAB PO ONE (23:00)
[2021-09-15 23:59] VITALS: BP 118/75; TEMP 98.6
[2021-09-17 13:29] LABS: C. trachomatis,PCR Negative (Neg,Equiv); Chlamydia trachomatis Source Urine; N. gonorrhoeae,PCR Negative (Neg,Equiv); Neisseria Source Urine
== END 2021-09-15 23:31 | disposition home or self-care (01) ==
LOC: EC 19:14
DX: N89.8 Other specified noninflammatory disorders of vagina (principal); Z20.2 Contact with and (suspected) exposure to infections with a predominantly sexual mode of transmission; F17.290 Nicotine dependence, other tobacco product, uncomplicated; E11.9 Type 2 diabetes mellitus without complications; Z79.84 Long term (current) use of oral hypoglycemic drugs
CPT/HCPCS: 36415; 81001; 81025; 87491; 87591; 99283; 96372; J0696

== ENCOUNTER 2022-02-13 11:21 | Emergency (ER) | payer OTHER ==
[2022-02-13 11:45] VITALS: TEMP 98.6
[2022-02-13 11:56] VITALS: RESP 18
--- NOTE | 2022-02-13 12:41 | XR ---
Left hand HISTORY: Pain 3 views the left hand Bone mineralization, joint spaces and alignment are maintained. Negative ulnar variance is present. S ome remodeling present at the radiocarpal joint. No fracture or dislocation. IMPRESSION: No acute abnormality.
--- NOTE | 2022-02-13 12:43 | ED ---
General Adult HPI - General Chief complaint: Extremity Problem,Nontraumatic Stated complaint: Lt Wrist Pain Time Seen by Provider: 02/13/22 12:03 Source: patient Mode of arrival: ambulatory Limitations: no limitations - History of Present Illness Initial comments: Dictation was produced using [employer] dictation software. please excuse any grammatical, word or spelling errors. Chief Complaint: 26-year-old female presents emergency department for left-sided wrist pain History of Present Illness: Patient is 18-year-old female presents emergency department for left-sided wrist pain. Patient states her pain has been ongoing for the last 48 hours. Denies any injury to the hand. 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 States that the pain is to her left anterior wrist and left base of the second digit. Denies a fever. No redness or swelling currently. States that it did swell the other day however her swelling improved spontaneously. Pain does not radiate to the fingers. Sometimes it radiates to the elbow. She does not have any numbness or paresthesias to the digits. The ROS documented in this emergency department record has been reviewed and confirmed by me. Those systems with pertinent positive or negative responses have been documented in the HPI. All other systems are other negative and/or no ncontributory. PHYSICAL EXAM: General Impression: Alert and oriented x3, not in acute distress HEENT: Normocephalic atraumatic, extra-ocular movements intact, pupils equal and reactive to light bilaterally, mucous membranes moist. Cardiovascular: Heart regular rate and rhythm Chest: Able to complete full sentences, no retractions, no tachypnea Musculoskeletal: Pulses present and equal in all extremities, no peripheral edema Motor: no focal deficits noted Neurological: CN II-XII grossly intact, no focal motor or sensory deficits noted Skin: Intact with no visualized rashes Psych: Normal affect and mood Left hand: No gross abnormalities, palpatory tenderness to the left anterior wrist. Fingertip to palm is intact for all digits. ED course: 26-year-old female presents emergency Department with left wrist and hand pain. This pain is atraumatic. Physical examination is benign. Patient likely suffering from tendinitis in the left hand. Signs upon arrival are within acceptable limits. Hand x-ray is unremarkable. No abnormalities noted to the hand or the wrist. Patient counseled on wrist and hand care. She is told to avoid any aggravating movements. She is given by mouth analgesics and referral to hand specialist. - Related Data Home Medications Medication Instructions Recorded Confirmed Acetaminophen [Tylenol] 500 mg PO Q4-6H PRN 09/18/20 09/18/20 Dulaglutide [Trulicity] 1.5 mg SQ SA 09/18/20 09/18/20 Multivitamins, Thera [Multivitamin 1 tab PO DAILY 09/18/20 09/18/20 (formulary)] metFORMIN HCL ER [Glucophage Xr] 500 mg PO BID 09/18/20 09/18/20 Previous Rx's Medication Instructions Recorded Cephalexin [Keflex] 500 mg PO Q8HR 7 Days #21 cap 01/10/21 Amoxic-Pot Clav 875-125Mg 1 tab PO Q12HR #20 tablet 07/31/21 [Augmentin 875-125] HYDROcodone/APAP 5-325MG [[place] 1 tab PO Q6HR PRN 3 Days #12 tab 02/13/22 5-325] Allergies Allergy/AdvReac Type Severity Reaction Status Date / Time No Known Allergies Allergy Verified 09/15/21 20:53 Review of Systems ROS Statement: Those systems with pertinent positive or pertinent negative responses have been documented in the HPI. ROS Other: All systems not noted in ROS Statement are negative. Past Medical History Past Medical History: Diabetes Mellitus Additional Past Medical History / Comment(s): ovarian cysts, PCOS, blood transfusions History of Any Multi-Drug Resistant Organisms: None Reported Past Surgical History: Ear Surgery, Orthopedic Surgery Additional Past Surgical History / Comment(s): l ankle Past Anesthesia/Blood Transfusion Reactions: No Reported Reaction Past Psychological History: No Psychological Hx Reported, Anxiety Smoking Status: Current every day smoker, Vaper Past Alcohol Use History: None Reported Past Drug Use History: Marijuana - Past Family History Father Additional Family Medical History / Comment(s): back surgery, heart problems Mother Additional Family Medical History / Comment(s): DJD General Exam Limitations: no limitations Course Vital Signs 02/13/22 11:43 Temperature 98.6 F Pulse Rate 85 Respiratory 18 Rate Blood Pressure 132/77 O2 Sat by Pulse 100 Oximetry Disposition Clinical Impression: Hand strain Disposition: HOME SELF-CARE Condition: Good Instructions (If sedation given, give patient instructions): Wrist Injury (ED) Prescriptions: HYDROcodone/APAP 5-325MG [[place] 5-325] 1 tab PO Q6HR PRN 3 Days #12 tab PRN Reason: Severe Pain Is patient prescribed a controlled substance at d/c from ED?: Yes If prescribed controlled substance>3 days was MAPS reviewed?: Prescribed <3 Days Referrals: Zafar Zapata DO [Doctor of Osteopathic Medicine] - 1-2 days Time of Disposition: 12:43
[2022-02-13 13:58] VITALS: BP 128/78; PULSE 84
== END 2022-02-13 13:54 | disposition home or self-care (01) ==
LOC: EC 11:21
DX: S66.912A Strain of unspecified muscle, fascia and tendon at wrist and hand level, left hand, initial encounter (principal); E11.9 Type 2 diabetes mellitus without complications; F17.290 Nicotine dependence, other tobacco product, uncomplicated; F12.90 Cannabis use, unspecified, uncomplicated; Z79.84 Long term (current) use of oral hypoglycemic drugs; Z79.899 Other long term (current) drug therapy; X58.XXXA Exposure to other specified factors, initial encounter
CPT/HCPCS: 99283

== ENCOUNTER 2022-08-10 05:27 | Emergency (ER) | payer OTHER ==
[2022-08-10 05:35] VITALS: TEMP 99.2
[2022-08-10] MEDS ORDERED: DEXAMETHASONE SOD PHOSPHATE 10 MG/ML 1 ML VIAL IM STA (05:59)
[2022-08-10] MEDS ORDERED: KETOROLAC 15 MG/ML 1 ML VIAL IVP STA (06:14)
[2022-08-10] MEDS ORDERED: METOCLOPRAMIDE 5 MG/ML 2 ML VIAL IVP STA (06:14)
[2022-08-10] MEDS ORDERED: diphenhydrAMINE 50 MG/ML 1 ML VIAL IVP STA (06:14)
[2022-08-10] MEDS ORDERED: SODIUM CHLORIDE 0.9% 1,000 ML IV STA (06:14)
--- NOTE | 2022-08-10 06:29 | ED ---
URI HPI - General Chief Complaint: Upper Respiratory Infection Stated Complaint: throat tightness, headache Time Seen by Provider: 08/10/22 05:58 Source: patient, RN notes reviewed Mode of arrival: ambulatory Limitations: no limitations - History of Present Illness Initial Comments: This is a 27-year-old female who presents to the emergency department for a sore throat, congestion, and headache. States that she has had a pounding headache for the last week. The sore throat and congestion began yesterday. Denies any significant coughing or sick contacts. She feels like her throat is swelling and it is making it difficult to breathe. Also reports pain when swallowing. Denies any fevers, chills, cough, dyspnea, chest pain, palpitations, abdominal pain, nausea, vomiting, diarrhea, or back pain. MD Complaint: fever, sore throat, nasal congestion Onset/Timin -: days(s) - Related Data Home Medications Medication Instructions Recorded Confirmed Acetaminophen [Tylenol] 500 mg PO Q4-6H PRN 09/18/20 09/18/20 Dulaglutide [Trulicity] 1.5 mg SQ SA 09/18/20 09/18/20 Multivitamins, Thera [Multivitamin 1 tab PO DAILY 09/18/20 09/18/20 (formulary)] metFORMIN HCL ER [Glucophage Xr] 500 mg PO BID 09/18/20 09/18/20 Previous Rx's Medication Instructions Recorded Cephalexin [Keflex] 500 mg PO Q8HR 7 Days #21 cap 01/10/21 Amoxic-Pot Clav 875-125Mg 1 tab PO Q12HR #20 tablet 07/31/21 [Augmentin 875-125] HYDROcodone/APAP 5-325MG [[place] 1 tab PO Q6HR PRN 3 Days #12 tab 02/13/22 5-325] Cephalexin [Keflex] 500 mg PO Q12HR 10 Days #20 cap 08/10/22 dexAMETHasone [Decadron] 10 mg PO Q24H 5 Days #5 tablet 08/10/22 Allergies Allergy/AdvReac Type Severity Reaction Status Date / Time No Known Allergies Allergy Verified 08/10/22 05:33 Review of Systems ROS Statement: Those systems with pertinent positive or pertinent negative responses have been documented in the HPI. ROS Other: All systems not noted in ROS Statement are negative. Past Medical History Past Medical History: Diabetes Mellitus Additional Past Medical History / Comment(s): ovarian cysts, PCOS, blood transfusions History of Any Multi-Drug Resistant Organisms: None Reported Past Surgical History: Ear Surgery, Orthopedic Surgery Additional Past Surgical History / Comment(s): l ankle Past Anesthesia/Blood Transfusion Reactions: No Reported Reaction Past Psychological History: No Psychological Hx Reported, Anxiety Smoking Status: Current every day smoker, Vaper Past Alcohol Use History: None Reported Past Drug Use History: Marijuana - Past Family History Father Additional Family Medical History / Comment(s): back surgery, heart problems Mother Additional Family Medical History / Comment(s): DJD General Exam Limitations: no limitations General appearance: alert, other (drowsy) Head exam: Present: atraumatic, normocephalic, normal inspection ENT exam: Present: other (3+ tonsillar hypertrophy with exudates. Pharyngeal erythema.) Respiratory exam: Present: normal lung sounds bilaterally. Absent: respiratory distress, wheezes, rales, rhonchi, stridor Cardiovascular Exam: Present: regular rate, normal rhythm, normal heart sounds. Absent: systolic murmur, diastolic murmur, rubs, gallop, clicks Neurological exam: Present: alert, oriented X3, CN II-XII intact Psychiatric exam: Present: normal affect, normal mood Skin exam: Present: warm, dry, intact, normal color. Absent: rash Course Vital Signs 08/10/22 08/10/22 08/10/22 05:34 06:05 09:38 Temperature 99.2 F Pulse Rate 110 H 108 H 100 Respiratory 16 20 18 Rate Blood Pressure 111/69 115/71 116/68 O2 Sat by Pulse 100 99 99 Oximetry Medical Decision Making - Medical Decision Making This is a 27-year-old female who presents to the emergency department with coughing, headaches, and congestion. COVID is negative. Centor criteria is 4. Rapid strep test is negative with culture results pending. Heterophile is negative. She was also given a migraine cocktail consisting of IV fluids, Decadron, Toradol, Reglan, and Benadryl. Patient noted resolution of migraine following the medication administration. States that her sore throat had slightly improved, however it was still present and painful to swallow. Denies any difficulty breathing at this time. Discussed with the patient that while the Decadron can increase blood sugar, this is a very temporary phenomenon and something she should just be aware of. She is also advised to monitor her diet closely over the next few days to limit how much her blood sugar elevates. Additionally, we did discuss having her continue the Decadron for a few more days to continue to help with swelling and inflammation of the throat. Patient is agreeable to this and would like to proceed, stating that her blood sugar typically runs low anyways. I did again educated her that this may cause it to increase, and she should be checking it at least once daily to closely monitor it. Advised she discontinue the steroid if it consistently remains above 250. Given that the patient's presentation is very consistent with strep throat, will treat her with a 10 day course of Keflex, especially because she is immunocompromised due to the diabetes. Keflex was chosen over amoxicillin, in the event this is a mononucleosis, in which case it could cause a rash. Did advise the patient, that is still possible she has mono and that it was too early to test for this. If symptoms persist, she should consider being retested for this. Return precautions reviewed in depth, the patient is instructed to return to the emergency department with any new, worsening, or concerning symptoms. Patient verbalized understanding. This case was discussed in detail with the attending ED physician. Presentation, findings, and treatment plan discussed in detail as well. - Lab Data Lab Results 08/10/22 08/10/22 08/10/22 Range/Units 06:00 06:15 06:18 Coronavirus (PCR) Not Detected (Not Detectd) Heterophile Antibody Negative (Negative) Group A Strep (PCR) NOT DETECTED (Not Detectd) Disposition Clinical Impression: Pharyngitis Disposition: HOME SELF-CARE Instructions (If sedation given, give patient instructions): Pharyngitis (ED), Upper Respiratory Infection (ED) Additional Instructions: Return to the emergency department with any new, worsening, or concerning symptoms. Take the Decadron daily for 5 days. Continue to check your blood sugar, and if it elevates past 250 consistently, stop taking it. Take the antibiotic twice daily for 10 days. Continue to remain well-hydrated and make sure that you get plenty of rest. If symptoms do not improve, it is possible that you have mono, and it was too early for you to test positive. Follow up with your primary care provider in 1-2 days. Prescriptions: dexAMETHasone [Decadron] 10 mg PO Q24H 5 Days #5 tablet Cephalexin [Keflex] 500 mg PO Q12HR 10 Days #20 cap Is patient prescribed a controlled substance at d/c from ED?: No Referrals: Faiza Leslie MD [Primary Care Provider] - 1-2 days
[2022-08-10] MEDS ORDERED: PENICILLIN G BENZATHINE 1,200,000 UNIT/2 ML SYRINGE IM STA (08:46)
[2022-08-10 09:39] VITALS: BP 116/68; PULSE 100; RESP 18
== END 2022-08-10 09:38 | disposition home or self-care (01) ==
LOC: EC 05:27
DX: J02.9 Acute pharyngitis, unspecified (principal); E11.9 Type 2 diabetes mellitus without complications; F17.290 Nicotine dependence, other tobacco product, uncomplicated; F12.90 Cannabis use, unspecified, uncomplicated; Z79.84 Long term (current) use of oral hypoglycemic drugs; Z79.899 Other long term (current) drug therapy; Z20.822 Contact with and (suspected) exposure to COVID-19
CPT/HCPCS: 36415; 87651; 86308; 87635; 99284; 96374; 96375 ×2; 96361; 96372; J1200; J1100; J2765; J1885

== ENCOUNTER 2022-11-05 12:26 | Emergency (ER) | payer OTHER ==
--- NOTE | 2022-11-05 13:54 | ED ---
URI HPI - General Chief Complaint: Upper Respiratory Infection Stated Complaint: ear pain, congestion Time Seen by Provider: 11/05/22 12:33 Source: patient, RN notes reviewed Mode of arrival: ambulatory Limitations: no limitations - History of Present Illness Initial Comments: This is a 27-year-old female who presents emergency department for coughing, c ongestion, ear pain, and a sore throat. Symptoms have been present for one week and she feels like they're getting worse. She was originally prescribed eardrops, however she only use these twice and discontinued them because she thought that they made her ear worse in terms of the pain. She cannot recall which ear drops these were. Denies any fevers, chills, dyspnea, chest pain, palpitations, abdominal pain, nausea, vomiting, diarrhea, back pain, or headaches. MD Complaint: cough, sore throat, nasal congestion Onset/Timin -: week(s) - Related Data Home Medications Medication Instructions Recorded Confirmed Acetaminophen [Tylenol] 500 mg PO Q4-6H PRN 09/18/20 09/18/20 Dulaglutide [Trulicity] 1.5 mg SQ SA 09/18/20 09/18/20 Multivitamins, Thera [Multivitamin 1 tab PO DAILY 09/18/20 09/18/20 (formulary)] metFORMIN HCL ER [Glucophage Xr] 500 mg PO BID 09/18/20 09/18/20 Previous Rx's Medication Instructions Recorded Cephalexin [Keflex] 500 mg PO Q8HR 7 Days #21 cap 01/10/21 Amoxic-Pot Clav 875-125Mg 1 tab PO Q12HR #20 tablet 07/31/21 [Augmentin 875-125] HYDROcodone/APAP 5-325MG [Walker 1 tab PO Q6HR PRN 3 Days #12 tab 02/13/22 5-325] Cephalexin [Keflex] 500 mg PO Q12HR 10 Days #20 cap 08/10/22 dexAMETHasone [Decadron] 10 mg PO Q24H 5 Days #5 tablet 08/10/22 Amoxic-Pot Clav 875-125Mg 1 tab PO Q12HR 7 Days #14 tab 11/05/22 [Augmentin 875-125] Fluconazole 150 mg PO DIRECTED #2 tab 11/05/22 Promethazine/Dextromethorphan 5 ml PO Q4-6H PRN #473 ml 11/05/22 [Promethazine-Dm Syrup] predniSONE 50 mg PO DAILY 5 Days #5 tab 11/05/22 Allergies Allergy/AdvReac Type Severity Reaction Status Date / Time No Known Allergies Allergy Verified 11/05/22 12:31 Review of Systems ROS Statement: Those systems with pertinent positive or pertinent negative responses have been documented in the HPI. ROS Other: All systems not noted in ROS Statement are negative. Past Medical History Past Medical History: Diabetes Mellitus Additional Past Medical History / Comment(s): ovarian cysts, PCOS, blood transfusions History of Any Multi-Drug Resistant Organisms: None Reported Past Surgical History: Ear Surgery, Orthopedic Surgery Additional Past Surgical History / Comment(s): l ankle Past Anesthesia/Blood Transfusion Reactions: No Reported Reaction Past Psychological History: No Psychological Hx Reported, Anxiety Smoking Status: Current every day smoker Past Alcohol Use History: None Reported Past Drug Use History: Marijuana - Past Family History Father Additional Family Medical History / Comment(s): back surgery, heart problems Mother Additional Family Medical History / Comment(s): DJD General Exam Limitations: no limitations General appearance: alert, in no apparent distress Head exam: Present: atraumatic, normocephalic, normal inspection Expanded Ear exam: Present: other (Bilateral canal erythema, no TM erythema or bulging. Tenderness to palpation of the tragus and pinna.) Respiratory exam: Present: normal lung sounds bilaterally. Absent: respiratory distress, wheezes, rales, rhonchi, stridor Cardiovascular Exam: Present: regular rate, normal rhythm, normal heart sounds. Absent: systolic murmur, diastolic murmur, rubs, gallop, clicks Neurological exam: Present: alert, oriented X3, CN II-XII intact Psychiatric exam: Present: normal affect, normal mood Skin exam: Present: warm, dry, intact, normal color. Absent: rash Course Vital Signs 11/05/22 11/05/22 12:27 14:13 Temperature 96.9 F L 98.3 F Pulse Rate 70 66 Respiratory 16 20 Rate Blood Pressure 120/72 127/77 O2 Sat by Pulse 100 99 Oximetry Medical Decision Making - Medical Decision Making This is a 27-year-old female who presents to the emergency department for upper respiratory symptoms. Was pt. sent in by a medical professional or institution? @ -No Did you speak to anyone other than the patient for history? @ -No Did you review nursing and triage notes? @ -Agree, accurate with regards to the patient's symptoms. Were old charts reviewed? @ -No Differential Diagnosis? @ -Influenza, Covid, allergic rhinitis, GERD, pneumonia, bronchitis, COPD, viral pharyngitis, streptococcal pharyngitis, this is not meant to be an all- inclusive list. What testing was considered but not performed? (CT, X-rays, U/S, labs)? Why? @ -None What meds were considered but not given? Why? @ -None Did you discuss the management of the patient with other professionals? @ -No Did you reconcile home meds? @ -No Was smoking cessation discussed for >3mins.? @ -No Was critical care preformed (if so, how long)? @ -No Were there social determinants of health that impacted care today? How? (Homelessness, low income, unemployed, alcoholism, drug addiction, transportation, low edu. Level, literacy, decrease access to med. care, nursing home, rehab)? @ -No Was there de-escalation of care discussed even if they declined? (Discuss DNR or withdrawal of care, Hospice)? @ -No What co-morbidities impacted this encounter? (DM, HTN, Smoking, COPD, CAD, Cancer, CVA, Hep., AIDS, mental health diagnosis, sleep apnea, morbid obesity)? @ -DM Was patient admitted / discharged? @ -Discharged. Patient tested negative for Covid, influenza, and RSV. Given the duration of her symptoms and lack of any improvement, prescription for Augm entin, prednisone, and promethazine DM cough syrup provided with dosing instructions reviewed. Augmentin was chosen to treat both the possible ear infection and a sinusitis. She notes that antibiotics typically give her yeast infections, and a prescription for Diflucan was provided as well. Patient requests to avoid any additional eardrops at this time. She was advised that the promethazine DM cough syrup can be sedating and she should take the first dose at night until she knows how it effects her. Drug Therapy requiring intensive monitoring for toxicity (Heparin, Nitro, Insulin, Cardizem)? @ -None Were any procedures done? @ -None Diagnosis/symptom? @ -Sinusitis Acute, or Chronic, or Acute on Chronic? @ -Acute Uncomplicated (without systemic symptoms) or Complicated (systemic symptoms)? @ -Complicated Side effects of treatment? @ -None Exacerbation, Progression, or Severe Exacerbation] @ -Not applicable Poses a threat to life or bodily function? @ -Currently impacting her ability to function due to the severity of her symptoms. Return precautions reviewed in depth, the patient is instructed to return to the emergency department with any new, worsening, or concerning symptoms. Patient verbalized understanding. This case was discussed in detail with the attending ED physician. Presentation, findings, and treatment plan discussed in detail as well. - Lab Data Lab Results 11/05/22 Range/Units 12:44 Influenza Type A (PCR) Not Detected (Not Detectd) Influenza Type B (PCR) Not Detected (Not Detectd) RSV (PCR) Not Detected (Not Detectd) SARS-CoV-2 (PCR) Not Detected (Not Detectd) Disposition Clinical Impression: Sinusitis, Bronchitis Disposition: HOME SELF-CARE Instructions (If sedation given, give patient instructions): Sinusitis (ED), Upper Respiratory Infection (ED), Acute Bronchitis (ED) Additional Instructions: Return to the emergency department with any new, worsening, or concerning symptoms. Take the antibiotic as prescribed for 7 days. The prednisone will be taken daily for 5 days. You can use the cough medication every 4-6 hours as needed, however be aware that it may be sedating and you should take it at night until you know how it affects you. Follow up with your primary care provider in 1-2 days. Prescriptions: Amoxic-Pot Clav 875-125Mg [Augmentin 875-125] 1 tab PO Q12HR 7 Days #14 tab Fluconazole 150 mg PO DIRECTED #2 tab predniSONE 50 mg PO DAILY 5 Days #5 tab Promethazine/Dextromethorphan [Promethazine-Dm Syrup] 5 ml PO Q4-6H PRN #473 ml PRN Reason: Cough Is patient prescribed a controlled substance at d/c from ED?: No Referrals: Faiza Leslie MD [Primary Care Provider] - 1-2 days
[2022-11-05 14:19] VITALS: BP 127/77; PULSE 66; RESP 20; TEMP 98.3
== END 2022-11-05 14:16 | disposition home or self-care (01) ==
LOC: EC 12:26
DX: J32.9 Chronic sinusitis, unspecified (principal); J40 Bronchitis, not specified as acute or chronic; E11.9 Type 2 diabetes mellitus without complications; F17.200 Nicotine dependence, unspecified, uncomplicated; F12.90 Cannabis use, unspecified, uncomplicated; Z79.899 Other long term (current) drug therapy; Z20.822 Contact with and (suspected) exposure to COVID-19
CPT/HCPCS: 87636; 99283

== ENCOUNTER 2024-01-11 10:55 | Emergency (ER) | payer OTHER ==
[2024-01-11] MEDS: ONDANSETRON ODT 4 MG TAB PO STA (11:32)
[2024-01-11] MEDS: ACETAMINOPHEN TAB 500 MG TAB PO STA (11:33)
--- NOTE | 2024-01-11 12:43 | ED ---
ENT HPI - General Chief complaint: ENT Stated complaint: Flu Symptoms Time Seen by Provider: 01/11/24 11:05 Source: patient, RN notes reviewed Mode of arrival: ambulatory Limitations: no limitations - History of Present Illness Initial comments: 28-year-old female with history of type 2 diabetes from the emergency department with chief complaint of throat pain, headaches, nausea and vomiting. Patient states that she has been experiencing a sore throat headache since . Patient states that this morning she woke up feeling nauseous and an episode of vomiting prompting her to visit the emergency department. She denies any known fevers at home. She has been taking Tylenol and Motrin at home with minimal relief. - Related Data Home Medications Medication Instructions Recorded Confirmed Dulaglutide [Trulicity] 3 mg SQ SA 05/18/23 05/18/23 Previous Rx's Medication Instructions Recorded Cephalexin [Keflex] 500 mg PO BID #14 cap 05/18/23 Amoxicillin 500 mg PO BID #20 capsule 01/11/24 Allergies Allergy/AdvReac Type Severity Reaction Status Date / Time No Known Allergies Allergy Verified 01/11/24 11:10 Review of Systems ROS Statement: Those systems with pertinent positive or pertinent negative responses have been documented in the HPI. ROS Other: All systems not noted in ROS Statement are negative. Past Medical History Past Medical History: Diabetes Mellitus Additional Past Medical History / Comment(s): ovarian cysts, PCOS, blood transfusions History of Any Multi-Drug Resistant Organisms: None Reported Past Surgical History: Ear Surgery, Orthopedic Surgery Additional Past Surgical History / Comment(s): l ankle Past Anesthesia/Blood Transfusion Reactions: No Reported Reaction Past Psychological History: Anxiety Smoking Status: Current every day smoker Past Alcohol Use History: None Reported Past Drug Use History: Marijuana - Past Family History Father Additional Family Medical History / Comment(s): back surgery, heart problems Mother Additional Family Medical History / Comment(s): DJD General Exam Limitations: no limitations General appearance: alert, in no apparent distress Head exam: Present: atraumatic, normocephalic, normal inspection Eye exam: Present: normal appearance, PERRL, EOMI. Absent: scleral icterus, conjunctival injection, periorbital swelling ENT exam: Present: normal exam, mucous membranes moist Expanded Throat exam: tonsillar erythema, other (Thematous soft palate with 1+ tonsillar edema) Neck exam: Present: tenderness (Over anterior cervical and tonsillar lymph nodes), lymphadenopathy (Anterior cervical lymphadenopathy, tonsillar enlargement). Absent: meningismus Respiratory exam: Present: normal lung sounds bilaterally. Absent: respiratory distress, wheezes, rales, rhonchi, stridor Cardiovascular Exam: Present: regular rate, normal rhythm, tachycardia, normal heart sounds. Absent: systolic murmur, diastolic murmur, rubs, gallop, clicks GI/Abdominal exam: Present: soft, tenderness (Mild tenderness to deep palpation diffusely), normal bowel sounds. Absent: distended, guarding, rebound, rigid Extremities exam: Present: normal inspection, full ROM, normal capillary refill. Absent: tenderness, pedal edema, joint swelling, calf tenderness Back exam: Present: normal inspection Neurological exam: Present: alert, oriented X3, CN II-XII intact Psychiatric exam: Present: normal affect, normal mood Skin exam: Present: warm, dry, intact, normal color. Absent: rash Course Vital Signs 01/11/24 01/11/24 11:07 13:23 Temperature 99.3 F 98.3 F Pulse Rate 112 H 98 Respiratory 18 16 Rate Blood Pressure 123/68 116/74 O2 Sat by Pulse 97 98 Oximetry Medical Decision Making - Medical Decision Making Was pt. sent in by a medical professional or institution (, PA, [employer] TRAVEL COUNSELOR, urgent care, hospital, or group home...) When possible be specific @ -No Did you speak to anyone other than the patient for history (EMS, parent, family, police, friend...)? What history was obtained from this source @ -No Did you review nursing and triage notes (agree or disagree)? Why? @ -I reviewed and agree with nursing and triage notes Were old charts reviewed (outside hosp., previous admission, EMS record, old EKG, old radiological studies, urgent care reports/EKG's, group home records)? Report findings @ -No old charts were reviewed Differential Diagnosis (chest pain, altered mental status, abdominal pain women, abdominal pain men, vaginal bleeding, weakness, fever, dyspnea, syncope, headache, dizziness, GI bleed, back pain, seizure, CVA, palpatations, mental health, musculoskeletal)? @ -COVID 19, RSV, influenza, pneumonia, acute bronchitis, URI, strep pharyngitis, pharyngitis this list is not all inclusive EKG interpreted by me (3pts min.). @ -None X-rays interpreted by me (1pt min.). @ -None done CT interpreted by me (1pt min.). @ -None done U/S interpreted by me (1pt. min.). @ -None done What testing was considered but not performed or refused? (CT, X-rays, U/S, labs)? Why? @ -None What meds were considered but not given or refused? Why? @ -None Did you discuss the management of the patient with other professionals (professionals i.e. , PA, [employer] TRAVEL COUNSELOR, lab, RT, psych nurse, social and political studies professor, insurance agency owner, teacher, operations officer, egg caser)? Give summary @ -No Was smoking cessation discussed for >3mins.? @ -No Was critical care preformed (if so, how long)? @ -No Were there social determinants of health that impacted care today? How? (Homelessness, low income, unemployed, alcoholism, drug addiction, transportation, low edu. Level, literacy, decrease access to med. care, group home, rehab)? @ -No Was there de-escalation of care discussed even if they declined (Discuss DNR or withdrawal of care, Hospice)? DNR status @ -No What co-morbidities impacted this encounter? (DM, HTN, Smoking, COPD, CAD, Cancer, CVA, ARF, Chemo, Hep., AIDS, mental health diagnosis, sleep apnea, morbid obesity)? @ -None Was patient admitted / discharged? Hospital course, mention meds given and route, prescriptions, significant lab abnormalities, going to OR and other pertinent info. @ -Discharged. 28-year-old female with chief complaint of sore throat, h eadache, nausea and vomiting. Was given oral Zofran and 1 g oral Tylenol for symptomatic relief in the emergency department. Patient positive for group a strep. States that her headache and nausea have improved after medication ministration patient will be discharged on oral amoxicillin for 10 days. Advised that patient complete total prescription regardless of symptoms of improvement. Increased oral hydration, cycling Tylenol and Motrin at home for symptomatic relief. Undiagnosed new problem with uncertain prognosis? @ -No Drug Therapy requiring intensive monitoring for toxicity (Heparin, Nitro, Insulin, Cardizem)? @ -No Were any procedures done? @ -No Diagnosis/symptom? @ -Group A strep Acute, or Chronic, or Acute on Chronic? @ -acute Uncomplicated (without systemic symptoms) or Complicated (systemic symptoms)? @ -Uncomplicated Side effects of treatment? @ -No Exacerbation, Progression, or Severe Exacerbation? @ -No Poses a threat to life or bodily function? How? (Chest pain, [place], MD, pneumonia, PE, COPD, DKA, ARF, appy, cholecystitis, CVA, Diverticulitis, Homicidal, Suicidal, threat to staff... and all critical care pts) @ -No - Lab Data Lab Results 01/11/24 01/11/24 01/11/24 Range/Units 11:39 12:07 12:43 POC Glucose (mg/dL) 119 H (70-110) mg/dL POC Glu Manager Food ID Kortney Lewis Influenza Type A (PCR) Not Detected (Not Detectd) Influenza Type B (PCR) Not Detected (Not Detectd) RSV (PCR) Not Detected (Not Detectd) SARS-CoV-2 (PCR) Not Detected (Not Detectd) Group A Strep (PCR) DETECTED A (Not Detectd) Disposition Clinical Impression: Strep pharyngitis Narrative: Please return to the Emergency Department if symptoms worsen or any other concerns. Disposition: HOME SELF-CARE Condition: Good Instructions (If sedation given, give patient instructions): Strep Throat (ED) Prescriptions: Amoxicillin 500 mg PO BID #20 capsule Is patient prescribed a controlled substance at d/c from ED?: No Referrals: Faiza Leslie MD [Primary Care Provider] - 1-2 days Time of Disposition: 12:43
[2024-01-11 12:45] LABS: Glucose,Whole Blood 119 mg/dL (70-110)
[2024-01-11] MEDS: ONDANSETRON 4 MG ODT STARTER PACK 2 TAB BTL PO STA (13:21)
[2024-01-11 13:42] VITALS: BP 116/74; PULSE 98; RESP 16; TEMP 98.3
== END 2024-01-11 13:26 | disposition home or self-care (01) ==
LOC: EC 10:55
DX: J02.0 Streptococcal pharyngitis (principal); B95.0 Streptococcus, group A, as the cause of diseases classified elsewhere; F17.200 Nicotine dependence, unspecified, uncomplicated
CPT/HCPCS: 99283; 36415; 87651; 87636; 99284; S0119

== ENCOUNTER 2024-10-06 08:42 | Emergency (ER) | payer OTHER ==
[2024-10-06 09:22] VITALS: TEMP 98.3
[2024-10-06 09:22] LABS: Glucose,Whole Blood 212 mg/dL (70-110)
--- NOTE | 2024-10-06 10:05 | ED ---
General Adult HPI - General Chief complaint: Recheck/Abnormal Lab/Rx Stated complaint: 6wks preg/High Blood Sugar Time Seen by Provider: 10/06/24 09:32 Source: patient, RN notes reviewed, old records reviewed Mode of arrival: ambulatory Limitations: no limitations - History of Present Illness Initial comments: 29-year-old female who is currently 6 weeks presenting for evaluation of hyperglycemia. Patient has diagnosis of type 2 diabetes and is currently on metformin. She reports that her blood sugars have been ranging between 130 and 250. She is following with endocrinology but has not seen obstetrics for this . No significant physical complaints. - Related Data Home Medications Medication Instructions Recorded Confirmed Dulaglutide [Trulicity] 3 mg SQ SA 05/18/23 05/18/23 Previous Rx's Medication Instructions Recorded Cephalexin [Keflex] 500 mg PO BID #14 cap 05/18/23 Amoxicillin 500 mg PO BID #20 capsule 01/11/24 Cephalexin [Keflex] 500 mg PO Q12HR #20 cap 10/06/24 Allergies Allergy/AdvReac Type Severity Reaction Status Date / Time No Known Allergies Allergy Verified 10/06/24 09:18 Review of Systems ROS Statement: Those systems with pertinent positive or pertinent negative responses have been documented in the HPI. ROS Other: All systems not noted in ROS Statement are negative. Past Medical History Past Medical History: Diabetes Mellitus Additional Past Medical History / Comment(s): ovarian cysts, PCOS, blood transfusions History of Any Multi-Drug Resistant Organisms: None Reported Past Surgical History: Ear Surgery, Orthopedic Surgery Additional Past Surgical History / Comment(s): l ankle Past Anesthesia/Blood Transfusion Reactions: No Reported Reaction Past Psychological History: Anxiety Smoking Status: Current every day smoker Past Alcohol Use History: None Reported Past Drug Use History: Marijuana - Past Family History Father Additional Family Medical History / Comment(s): back surgery, heart problems Mother Additional Family Medical History / Comment(s): DJD General Exam Limitations: no limitations General appearance: alert, in no apparent distress Head exam: Present: atraumatic, normocephalic Eye exam: Present: normal appearance, PERRL ENT exam: Present: mucous membranes dry Neck exam: Present: normal inspection. Absent: tenderness, meningismus Respiratory exam: Present: normal lung sounds bilaterally. Absent: respiratory distress, wheezes Cardiovascular Exam: Present: regular rate, normal rhythm GI/Abdominal exam: Present: soft. Absent: distended, tenderness, guarding Course Vital Signs 10/06/24 09:18 Temperature 98.3 F Pulse Rate 88 Respiratory 18 Rate Blood Pressure 122/68 O2 Sat by Pulse 99 Oximetry Medical Decision Making - Medical Decision Making Was pt. sent in by a medical professional or institution (SIMONA Bridges, PERSONNEL WORKER, urgent care, hospital, or care home...) When possible be specific @ -No Did you speak to anyone other than the patient for history (EMS, parent, family, police, friend...)? What history was obtained from this source @ -No Did you review nursing and triage notes (agree or disagree)? Why? @ -I reviewed and agree with nursing and triage notes Were old charts reviewed (outside hosp., previous admission, EMS record, old EKG, old radiological studies, urgent care reports/EKG's, care home records)? Report findings @ -No old charts were reviewed Differential Diagnosis: Hyperglycemia, dehydration, DKA EKG interpreted by me (3pts min.). @ -As above X-rays interpreted by me (1pt min.). @ -None done CT interpreted by me (1pt min.). @ -None done U/S interpreted by me (1pt. min.). @ -None done What testing was considered but not performed or refused? (CT, X-rays, U/S, labs)? Why? @ -None What meds were considered but not given or refused? Why? @ -None Did you discuss the management of the patient with other professionals (professionals i.e. SIMONA Bridges, PERSONNEL WORKER, lab, RT, psych nurse, social science research assistant, laborer demolition, teacher, annual giving officer, case maker)? Give summary @ -No Was smoking cessation discussed for >3mins.? @ -No Was critical care preformed (if so, how long)? @ -No Were there social determinants of health that impacted care today? How? (Homelessness, low income, unemployed, alcoholism, drug addiction, transportation, low edu. Level, literacy, decrease access to med. care, detention, rehab)? @ -No Was there de-escalation of care discussed even if they declined (Discuss DNR or withdrawal of care, Hospice)? DNR status @ -No What co-morbidities impacted this encounter? (DM, HTN, Smoking, COPD, CAD, Cancer, CVA, ARF, Chemo, Hep., AIDS, mental health diagnosis, sleep apnea, morbid obesity)? @ -[Diabetes, current Was patient admitted / discharged? Hospital course, mention meds given and route, prescriptions, significant lab abnormalities, going to OR and other pertinent info. @ -29-year-old female with elevated blood sugar, history of diabetes on metformin, currently . Patient has not been able to establish with obstetrics she is following with endocrinology Dr. Chambers. She has no specific complaints. Initial blood sugar 200, on the CMP the blood sugar is 126. No signs of acidosis, negative acetone. Patient does have signs of current UTI and bacteria in . Culture will be obtained and the patient is started on Keflex. She will follow-up with her atmospheric chemist and attempt to follow-up with obstetrics, may require high risk evaluation. Undiagnosed new problem with uncertain prognosis? @ -[No Drug Therapy requiring intensive monitoring for toxicity (Heparin, Nitro, Insuli n, Cardizem)? @ -No Were any procedures done? @ -No Diagnosis/symptom? @ -Hyperglycemia Acute, or Chronic, or Acute on Chronic? @ -[Acute on chronic Uncomplicated (without systemic symptoms) or Complicated (systemic symptoms)? @ -Default Side effects of treatment? @ -No Exacerbation, Progression, or Severe Exacerbation? @ -No Poses a threat to life or bodily function? How? (Chest pain, [place], [place], pneumonia, PE, COPD, DKA, ARF, appy, cholecystitis, CVA, Diverticulitis, Homicidal, Suicidal, threat to staff... and all critical care pts) @ -Low risk - Lab Data Result diagrams: 10/06/24 09:46 10/06/24 09:46 Lab Results 10/06/24 10/06/24 10/06/24 Range/Units 09:20 09:46 09:46 WBC 9.6 (3.8-10.6) k/uL RBC 4.30 (3.80-5.40) m/uL Hgb 12.7 (11.4-16.0) gm/dL Hct 38.8 (34.0-46.0) % MCV 90.4 (80.0-100.0) fL MCH 29.6 (25.0-35.0) pg MCHC 32.8 (31.0-37.0) g/dL RDW 12.2 (11.5-15.5) % Plt Count 242 (150-450) k/uL MPV 8.2 Neutrophils % 68 % Lymphocytes % 24 % Monocytes % 5 % Eosinophils % 2 % Basophils % 1 % Neutrophils # 6.6 (1.3-7.7) k/uL Lymphocytes # 2.3 (1.0-4.8) k/uL Monocytes # 0.4 (0-1.0) k/uL Eosinophils # 0.2 (0-0.7) k/uL Basophils # 0.1 (0-0.2) k/uL VBG pH (7.31-7.41) VBG pCO2 (37-51) mmHg VBG HCO3 (24-28) mmol/L Sodium (137-145) mmol/L Potassium (3.5-5.1) mmol/L Chloride (98-107) mmol/L Carbon Dioxide (22-30) mmol/L Anion Gap mmol/L BUN (7-17) mg/dL Creatinine (0.52-1.04) mg/dL Est GFR (CKD-EPI)AfAm (>60 ml/min/1.73 sqM) Est GFR (CKD-EPI)NonAf (>60 ml/min/1.73 sqM) Glucose (74-99) mg/dL POC Glucose (mg/dL) 212 H (70-110) mg/dL POC Glu Transmission Engineer ID Tony Saray Calcium (8.4-10.2) mg/dL Total Bilirubin (0.2-1.3) mg/dL AST (14-36) U/L ALT (4-34) U/L Alkaline Phosphatase (38-126) U/L Total Protein (6.3-8.2) g/dL Albumin (3.5-5.0) g/dL Urine Color Light Yellow Urine Appearance Cloudy H (Clear) Urine pH 5.5 (5.0-8.0) Ur Specific [place] 1.028 (1.001-1.035) Urine Protein Negative (Negative) Urine Glucose (UA) 4+ H (Negative) Urine Ketones Negative (Negative) Urine Blood Negative (Negative) Urine Nitrite Negative (Negative) Urine Bilirubin Negative (Negative) Urine Urobilinogen <2.0 (<2.0) mg/dL Ur Leukocyte Esterase Moderate H (Negative) Urine RBC 62 H (0-5) /hpf Urine WBC 2 (0-5) /hpf Ur Squamous Epith Cells 18 H (0-4) /hpf Amorphous Sediment Occasional H (None) /hpf Urine Bacteria Rare H (None) /hpf Urine Mucus Occasional H (None) /hpf Acetone, Qual (Negative) 10/06/24 10/06/24 Range/Units 09:46 09:46 WBC (3.8-10.6) k/uL RBC (3.80-5.40) m/uL Hgb (11.4-16.0) gm/dL Hct (34.0-46.0) % MCV (80.0-100.0) fL MCH (25.0-35.0) pg MCHC (31.0-37.0) g/dL RDW (11.5-15.5) % Plt Count (150-450) k/uL MPV Neutrophils % % Lymphocytes % % Monocytes % % Eosinophils % % Basophils % % Neutrophils # (1.3-7.7) k/uL Lymphocytes # (1.0-4.8) k/uL Monocytes # (0-1.0) k/uL Eosinophils # (0-0.7) k/uL Basophils # (0-0.2) k/uL VBG pH 7.35 (7.31-7.41) VBG pCO2 49 (37-51) mmHg VBG HCO3 27 (24-28) mmol/L Sodium 137 (137-145) mmol/L Potassium 3.6 (3.5-5.1) mmol/L Chloride 106 (98-107) mmol/L Carbon Dioxide 25 (22-30) mmol/L Anion Gap 6 mmol/L BUN 14 (7-17) mg/dL Creatinine 0.64 (0.52-1.04) mg/dL Est GFR (CKD-EPI)AfAm >90 (>60 ml/min/1.73 sqM) Est GFR (CKD-EPI)NonAf >90 (>60 ml/min/1.73 sqM) Glucose 126 H (74-99) mg/dL POC Glucose (mg/dL) (70-110) mg/dL POC Glu Transmission Engineer ID Calcium 9.7 (8.4-10.2) mg/dL Total Bilirubin 0.3 (0.2-1.3) mg/dL AST 15 (14-36) U/L ALT 12 (4-34) U/L Alkaline Phosphatase 61 (38-126) U/L Total Protein 7.2 (6.3-8.2) g/dL Albumin 4.6 (3.5-5.0) g/dL Urine Color Urine Appearance (Clear) Urine pH (5.0-8.0) Ur Specific [place] (1.001-1.035) Urine Protein (Negative) Urine Glucose (UA) (Negative) Urine Ketones (Negative) Urine Blood (Negative) Urine Nitrite (Negative) Urine Bilirubin (Negative) Urine Urobilinogen (<2.0) mg/dL Ur Leukocyte Esterase (Negative) Urine RBC (0-5) /hpf Urine WBC (0-5) /hpf Ur Squamous Epith Cells (0-4) /hpf Amorphous Sediment (None) /hpf Urine Bacteria (None) /hpf Urine Mucus (None) /hpf Acetone, Qual Negative (Negative) Disposition Clinical Impression: Hyperglycemia, Bacteriuria during Disposition: HOME SELF-CARE Condition: Fair Instructions (If sedation given, give patient instructions): Urinary Tract Infection in (ED), Diabetic Hyperglycemia (ED) Prescriptions: Cephalexin [Keflex] 500 mg PO Q12HR #20 cap Is patient prescribed a controlled substance at d/c from ED?: No Referrals: Faiza Leslie MD [Primary Care Provider] - 1-2 days Oscar Chambers MD [REFERRING] - 1-2 days Mary Whiteside DO [Doctor of Osteopathic Medicine] - 1-2 days Time of Disposition: 10:57
[2024-10-06 10:07] LABS: Basophils # (A) 0.1 k/uL (0-0.2); Basophils % (A) 1 %; Eosinophils # (A) 0.2 k/uL (0-0.7); Eosinophils % (A) 2 %; HCT 38.8 % (34.0-46.0); HGB 12.7 gm/dL (11.4-16.0); Lymphocytes # (A) 2.3 k/uL (1.0-4.8); Lymphocytes % (A) 24 %; MCH 29.6 pg (25.0-35.0); MCHC 32.8 g/dL (31.0-37.0); MCV 90.4 fL (80.0-100.0); Mean Platelet Volume 8.2; Monocytes # (A) 0.4 k/uL (0-1.0); Monocytes % (A) 5 %; Neutrophils # (A) 6.6 k/uL (1.3-7.7); Neutrophils % (A) 68 %; Platelet Count 242 k/uL (150-450); RDW 12.2 % (11.5-15.5); VBG PH 7.35 (7.31-7.41); WBC 9.6 k/uL (3.8-10.6)
[2024-10-06] MEDS: SODIUM CHLORIDE 0.9% 1,000 ML IV ONE (10:13)
[2024-10-06 10:19] LABS: ALT 12 U/L (4-34); AST 15 U/L (14-36); African American GFR (CKD) >90 (>60 ml/min/1.73 sqM); Albumin 4.6 g/dL (3.5-5.0); Alkaline Phosphatase 61 U/L (38-126); Anion Gap 6 mmol/L; Blood Urea Nitrogen 14 mg/dL (7-17); Calcium 9.7 mg/dL (8.4-10.2); Carbon Dioxide 25 mmol/L (22-30); Chloride 106 mmol/L (98-107); Glucose 126 mg/dL (74-99); Non-African American GFR(CKD) >90 (>60 ml/min/1.73 sqM); Potassium 3.6 mmol/L (3.5-5.1); Sodium 137 mmol/L (137-145); Total Bilirubin 0.3 mg/dL (0.2-1.3); Total Protein 7.2 g/dL (6.3-8.2)
[2024-10-06 10:27] LABS: Amorphous Sediment,Urine Occasional /hpf; Appearance,Urine Cloudy (Clear); Bacteria,Urine Rare /hpf; Bilirubin,Urine Negative (Negative); Blood,Urine Negative (Negative); Color,Urine Light Yellow; Glucose,Urine (UA) 4+ (Negative); Ketones,Urine Negative (Negative); Leukocyte Esterase,Urine Moderate (Negative); Mucus,Urine Occasional /hpf; Nitrite,Urine Negative (Negative); PH, Urine 5.5 (5.0-8.0); Protein,Urine Negative (Negative); RBC,Urine 62 /hpf (0-5); Specific Gravity,Urine 1.028 (1.001-1.035); Squamous Epithelial Cell,Urine 18 /hpf (0-4); Urobilinogen,Urine <2.0 mg/dL (<2.0); WBC,Urine 2 /hpf (0-5)
[2024-10-06 11:33] VITALS: BP 124/72; PULSE 81; RESP 16
== END 2024-10-06 11:33 | disposition home or self-care (01) ==
LOC: EC 08:42
DX: O24.111 Pre-existing type 2 diabetes mellitus, in pregnancy, first trimester (principal); O99.331 Smoking (tobacco) complicating pregnancy, first trimester; E11.65 Type 2 diabetes mellitus with hyperglycemia; F17.200 Nicotine dependence, unspecified, uncomplicated; Z79.899 Other long term (current) drug therapy; Z3A.01 Less than 8 weeks gestation of pregnancy
CPT/HCPCS: 36415; 80053; 81001; 82009; 82803; 85025; 87086; 96360; 99285

== ENCOUNTER 2024-11-09 15:11 | Emergency (ER) | payer OTHER ==
[2024-11-09 17:09] VITALS: TEMP 98.4
[2024-11-09 17:17] LABS: Basophils # (A) 0.1 k/uL (0-0.2); Basophils % (A) 0 %; Eosinophils # (A) 0.2 k/uL (0-0.7); Eosinophils % (A) 1 %; HCT 37.8 % (34.0-46.0); Lymphocytes % (A) 24 %; MCH 30.6 pg (25.0-35.0); MCHC 34.5 g/dL (31.0-37.0); MCV 88.7 fL (80.0-100.0); Mean Platelet Volume 8.2; Monocytes # (A) 0.5 k/uL (0-1.0); Monocytes % (A) 4 %; Neutrophils # (A) 8.8 k/uL (1.3-7.7); Neutrophils % (A) 69 %; Platelet Count 213 k/uL (150-450); RBC 4.26 m/uL (3.80-5.40); RDW 12.3 % (11.5-15.5); WBC 12.6 k/uL (3.8-10.6)
[2024-11-09 17:25] LABS: Appearance,Urine Cloudy (Clear); Bilirubin,Urine Negative (Negative); Blood,Urine Moderate (Negative); Color,Urine Yellow; Glucose,Urine (UA) Negative (Negative); Ketones,Urine Negative (Negative); Leukocyte Esterase,Urine Moderate (Negative); Mucus,Urine Few /hpf; Nitrite,Urine Negative (Negative); PH, Urine 5.5 (5.0-8.0); Protein,Urine Trace (Negative); RBC,Urine 5 /hpf (0-5); Squamous Epithelial Cell,Urine 7 /hpf (0-4); Urobilinogen,Urine <2.0 mg/dL (<2.0); WBC,Urine 26 /hpf (0-5)
[2024-11-09 17:26] LABS: INR 0.9 (<1.2); Partial Thromboplastin Time 26.2 sec (22.0-30.0); Prothrombin Time 10.1 sec (10.0-12.5)
[2024-11-09 17:28] LABS: African American GFR (CKD) >90 (>60 ml/min/1.73 sqM); Anion Gap 12 mmol/L; Blood Urea Nitrogen 12 mg/dL (7-17); Calcium 9.8 mg/dL (8.4-10.2); Carbon Dioxide 25 mmol/L (22-30); Chloride 101 mmol/L (98-107); Glucose 82 mg/dL (74-99); Non-African American GFR(CKD) >90 (>60 ml/min/1.73 sqM); Sodium 138 mmol/L (137-145)
[2024-11-09 17:39] LABS: Potassium 3.8 mmol/L (3.5-5.1)
--- NOTE | 2024-11-09 18:21 | US ---
EXAMINATION TYPE: Transabdominal DATE OF EXAM: 11/09/2024 5:34 PM COMPARISON: NONE CLINICAL INDICATION: Female, 29 years old with history of vag bleeding, 11 w ; Pt states RLQ pain and spotting that started today TECHNIQUE: Transabdominal (TA) with grayscale and color Doppler imaging including first trimester pre gnancy. FINDINGS: EXAM MEASUREMENTS: GESTATIONAL AGE / DATING Physician Established: (10 weeks/6 days) EDC: 06/01/2025 Dates by LMP: (10 weeks/6 days) EDC: 06/01/2025 Dates by First Scan: No previous this is first scan Dates by Current Scan for: (10 weeks/5 days) EDC: 05/31/2025 MATERNAL ANATOMY Uterus: 10.6 x 7.1 x 7.8 cm Right Ovary: 3.4 x 2.98 x 3.0 cm Left Ovary: 3.4 x 2.0 x 2.4 cm Post CDS / Adnexa: wnl Presence of free fluid: No Presence of corpus luteal cyst: Right Ovary= 2.3 x 2.2 x 1.7 cm Presence of subchorionic bleed: [place] shape area lower uterine segment inferior to gestational sac = 2.3 x 0.9 x 3.4 cm GESTATION / SURVEY CRL: 3.7 cm (10 weeks/5 days) Gestational Sac morphology: Normal Heart Rate: 158 bpm Rhythm: Normal IUP: Viable IUP Single, viable IUP, possible subchorionic bleed IMPRESSION: 1. Single intrauterine gestation estimated at 10 weeks 5 days gestation based on crown-rump length. C ardiac activity measures 158 bpm. [facility], , 11/09/2024 6:18 PM
[2024-11-09 18:45] VITALS: RESP 18
--- NOTE | 2024-11-09 19:31 | ED ---
General Adult HPI - General Chief complaint: Vaginal Bleeding Stated complaint: 10wks preg spotting Time Seen by Provider: 11/09/24 16:40 Source: patient, RN notes reviewed, old records reviewed Mode of arrival: ambulatory Limitations: no limitations - History of Present Illness Initial comments: Patient is a 29-year-old female presents emergency department for vaginal bleeding in . Patient is approximately 10 weeks gestation. Patient is . Has noticed for the last day some vaginal spotting with some lower abdominal discomfort that she states this reminds her of period cramps. Has a history of diabetes. Has been taking vitamins. Has followed up with CNC SERVICE TECHNICIAN. Is not on blood thinners. No coagulopathies. No other acute complaints. Presents for further evaluation at this time. - Related Data Home Medications Medication Instructions Recorded Confirmed Dulaglutide [Trulicity] 3 mg SQ SA 05/18/23 05/18/23 Previous Rx's Medication Instructions Recorded Cephalexin [Keflex] 500 mg PO BID #14 cap 05/18/23 Amoxicillin 500 mg PO BID #20 capsule 01/11/24 Amoxic-Pot Clav 875-125Mg 1 tab PO BID 7 Days #14 tab 10/10/24 [Augmentin 875-125] Allergies Allergy/AdvReac Type Severity Reaction Status Date / Time No Known Allergies Allergy Verified 11/09/24 15:38 Review of Systems ROS Statement: Those systems with pertinent positive or pertinent negative responses have been documented in the HPI. Review of Systems: CONST: Denies fever EYES: Denies blurry vision ENT: Denies nasal congestion C/V: Denies Chest pain RESP: Denies shortness of breath GI: Endorses lower abdominal cramping : Endorses vaginal spotting SKIN: Denies rash. MSK: Denies joint pain. NEURO: Denies headache ROS Other: All systems not noted in ROS Statement are negative. Past Medical History Past Medical History: Diabetes Mellitus Additional Past Medical History / Comment(s): ovarian cysts, PCOS, blood transfusions History of Any Multi-Drug Resistant Organisms: VRE Date of last positivie culture/infection: 10/06/24 MDRO Source:: urine Past Surgical History: Ear Surgery, Orthopedic Surgery Additional Past Surgical History / Comment(s): l ankle Past Anesthesia/Blood Transfusion Reactions: No Reported Reaction Past Psychological History: Anxiety Smoking Status: Former smoker Past Alcohol Use History: None Reported Past Drug Use History: Marijuana - Past Family History Father Additional Family Medical History / Comment(s): back surgery, heart problems Mother Additional Family Medical History / Comment(s): DJD General Exam - General Exam Comments Initial Comments: General: Appears in no acute distress. HEAD: Normal with no signs of head trauma. EYES: PERRLA, EOMI, conjunctiva normal, no discharge. ENT: Hearing grossly intact, normal oropharynx. RESPIRATORY: Clear breath sounds bilaterally. No wheezes, rales, or rhonchi. C/V: Regular rate and rhythm. S1 and S2 auscultated, no edema, peripheral pulses 2+ and intact throughout ABD: Abd is soft, nontender, nondistended EXT: Normal range of motion, no obvious deformity SKIN: No rashes or lesions observed on exposed skin. NEURO: Alert and oriented x 4. Limitations: no limitations Course Vital Signs 11/09/24 11/09/24 11/09/24 15:33 17:06 18:04 Temperature 98.8 F 98.4 F Pulse Rate 76 72 77 Respiratory 18 19 18 Rate Blood Pressure 118/72 103/67 102/66 O2 Sat by Pulse 100 100 98 Oximetry 11/09/24 19:33 Temperature Pulse Rate 80 Respiratory 18 Rate Blood Pressure 110/64 O2 Sat by Pulse 98 Oximetry Medical Decision Making - Medical Decision Making Was pt. sent in by a medical professional or institution (, SIMONA, COAL EQUIPMENT OPERATOR, urgent care, hospital, or fdc...) When possible be specific @ -No Did you speak to anyone other than the patient for history (EMS, parent, family, police, friend...)? What history was obtained from this source @ -No Did you review nursing and triage notes (agree or disagree)? Why? @ -I reviewed and agree with nursing and triage notes Were old charts reviewed (outside hosp., previous admission, EMS record, old EKG, old radiological studies, urgent care reports/EKG's, fdc records)? Report findings @ -No old charts were reviewed Differential Diagnosis (chest pain, altered mental status, abdominal pain women, abdominal pain men, vaginal bleeding, weakness, fever, dyspnea, syncope, headache, dizziness, GI bleed, back pain, seizure, CVA, palpatations, mental health, musculoskeletal)? @ -Threatened miscarriage, subchorionic hemorrhage, miscarriage. This list is not all inclusive. EKG interpreted by me (3pts min.). @ -None done X-rays interpreted by me (1pt min.). @ -None done CT interpreted by me (1pt min.). @ -None done U/S interpreted by me (1pt. min.). @ -Pelvic ultrasound reveals a definitive IUP with gestational age of 10 weeks and 5 days with an appropriate heart rate. Subchorionic hemorrhage is present. What testing was considered but not performed or refused? (CT, X-rays, U/S, labs)? Why? @ -None What meds were considered but not given or refused? Why? @ -None Did you discuss the management of the patient with other professionals (professionals i.e. , PA, COAL EQUIPMENT OPERATOR, lab, RT, psych nurse, social service agency director, traditional chinese herbalist, teacher, plain clothes police officer, test case developer)? Give summary @ -No Was smoking cessation discussed for >3mins.? @ -No Was critical care preformed (if so, how long)? @ -No Were there social determinants of health that impacted care today? How? (Homelessness, low income, unemployed, alcoholism, drug addiction, transportation, low edu. Level, literacy, decrease access to med. care, shelter, rehab)? @ -No Was there de-escalation of care discussed even if they declined (Discuss DNR or withdrawal of care, Hospice)? DNR status @ -No What co-morbidities impacted this encounter? (DM, HTN, Smoking, COPD, CAD, Cancer, CVA, ARF, Chemo, Hep., AIDS, mental health diagnosis, sleep apnea, morbid obesity)? @ -None Was patient admitted / discharged? Hospital course, mention meds given and route, prescriptions, significant lab abnormalities, going to OR and other pertinent info. @ -Patient is G1, P0 with vaginal spotting in the setting of a first trimester . Vital signs within acceptable limits. She declines analgesia medications. Will obtain ultrasound as well as laboratory studies. Patient was in agreement this plan. Ultrasound reveals a definitive IUP gestational age 10 weeks and 5 days with a subchorionic bleed and appropriate heart rate. Laboratory studies are all within acceptable limits. No evidence of bacteremia. Patient's blood type is Rh-. I discussed results with patient. Diagnosis is threatened miscarriage and she will receive RhoGAM as she is Rh-. Patient was in agreement this plan. She will be discharged home afterwards with instructions follow-up with her CNC SERVICE TECHNICIAN in the next 1 to 3 days. Return if any worsening symptoms. I instructed the patient to follow up with their PCP in the next 1-3 days. I explained that the patient should return to the emergency department if they experience any worsening symptoms. Strict return precautions were discussed with the patient. The patient expressed understanding of these instructions. I answered all questions that the patient had. The patient was discharged home in good condition with their prescriptions and follow up information. Undiagnosed new problem with uncertain prognosis? @ -No Drug Therapy requiring intensive monitoring for toxicity (Heparin, Nitro, Insulin, Cardizem)? @ -No Were any procedures done? @ -No Diagnosis/symptom? @ -Threatened miscarriage, Rh-, subchorionic hemorrhage Acute, or Chronic, or Acute on Chronic? @ -Acute Uncomplicated (without systemic symptoms) or Complicated (systemic symptoms)? @ -Uncomplicated Side effects of treatment? @ -No Exacerbation, Progression, or Severe Exacerbation? @ -No Poses a threat to life or bodily function? How? (Chest pain, [place], [place], pneumonia, PE, COPD, DKA, ARF, appy, cholecystitis, CVA, Diverticulitis, Homicidal, Suicidal, threat to staff... and all critical care pts) @ -Unlikely at this time - Lab Data Result diagrams: 11/09/24 17:09 11/09/24 17:09 Lab Results 11/09/24 11/09/24 11/09/24 Range/Units 17:09 17:09 17:09 WBC 12.6 H (3.8-10.6) k/uL RBC 4.26 (3.80-5.40) m/uL Hgb 13.0 (11.4-16.0) gm/dL Hct 37.8 (34.0-46.0) % MCV 88.7 (80.0-100.0) fL MCH 30.6 (25.0-35.0) pg MCHC 34.5 (31.0-37.0) g/dL RDW 12.3 (11.5-15.5) % Plt Count 213 (150-450) k/uL MPV 8.2 Neutrophils % 69 % Lymphocytes % 24 % Monocytes % 4 % Eosinophils % 1 % Basophils % 0 % Neutrophils # 8.8 H (1.3-7.7) k/uL Lymphocytes # 3.0 (1.0-4.8) k/uL Monocytes # 0.5 (0-1.0) k/uL Eosinophils # 0.2 (0-0.7) k/uL Basophils # 0.1 (0-0.2) k/uL PT 10.1 (10.0-12.5) sec INR 0.9 (<1.2) APTT 26.2 (22.0-30.0) sec Sodium (137-145) mmol/L Potassium (3.5-5.1) mmol/L Chloride (98-107) mmol/L Carbon Dioxide (22-30) mmol/L Anion Gap mmol/L BUN (7-17) mg/dL Creatinine (0.52-1.04) mg/dL Est GFR (CKD-EPI)AfAm (>60 ml/min/1.73 sqM) Est GFR (CKD-EPI)NonAf (>60 ml/min/1.73 sqM) Glucose (74-99) mg/dL Calcium (8.4-10.2) mg/dL HCG, Quant mIU/mL Urine Color Yellow Urine Appearance Cloudy H (Clear) Urine pH 5.5 (5.0-8.0) Ur Specific [place] 1.030 (1.001-1.035) Urine Protein Trace H (Negative) Urine Glucose (UA) Negative (Negative) Urine Ketones Negative (Negative) Urine Blood Moderate H (Negative) Urine Nitrite Negative (Negative) Urine Bilirubin Negative (Negative) Urine Urobilinogen <2.0 (<2.0) mg/dL Ur Leukocyte Esterase Moderate H (Negative) Urine RBC 5 (0-5) /hpf Urine WBC 26 H (0-5) /hpf Ur Squamous Epith Cells 7 H (0-4) /hpf Urine Mucus Few H (None) /hpf Blood Type Blood Type Recheck Bld Type Recheck Status Antibody Screen Spec Expiration Date 11/09/24 11/09/24 Range/Units 17:09 17:50 WBC (3.8-10.6) k/uL RBC (3.80-5.40) m/uL Hgb (11.4-16.0) gm/dL Hct (34.0-46.0) % MCV (80.0-100.0) fL MCH (25.0-35.0) pg MCHC (31.0-37.0) g/dL RDW (11.5-15.5) % Plt Count (150-450) k/uL MPV Neutrophils % % Lymphocytes % % Monocytes % % Eosinophils % % Basophils % % Neutrophils # (1.3-7.7) k/uL Lymphocytes # (1.0-4.8) k/uL Monocytes # (0-1.0) k/uL Eosinophils # (0-0.7) k/uL Basophils # (0-0.2) k/uL PT (10.0-12.5) sec INR (<1.2) APTT (22.0-30.0) sec Sodium 138 (137-145) mmol/L Potassium 3.8 (3.5-5.1) mmol/L Chloride 101 (98-107) mmol/L Carbon Dioxide 25 (22-30) mmol/L Anion Gap 12 mmol/L BUN 12 (7-17) mg/dL Creatinine 0.57 (0.52-1.04) mg/dL Est GFR (CKD-EPI)AfAm >90 (>60 ml/min/1.73 sqM) Est GFR (CKD-EPI)NonAf >90 (>60 ml/min/1.73 sqM) Glucose 82 (74-99) mg/dL Calcium 9.8 (8.4-10.2) mg/dL HCG, Quant 50763.0 mIU/mL Urine Color Urine Appearance (Clear) Urine pH (5.0-8.0) Ur Specific [place] (1.001-1.035) Urine Protein (Negative) Urine Glucose (UA) (Negative) Urine Ketones (Negative) Urine Blood (Negative) Urine Nitrite (Negative) Urine Bilirubin (Negative) Urine Urobilinogen (<2.0) mg/dL Ur Leukocyte Esterase (Negative) Urine RBC (0-5) /hpf Urine WBC (0-5) /hpf Ur Squamous Epith Cells (0-4) /hpf Urine Mucus (None) /hpf Blood Type O Negative Blood Type Recheck O Neg Bld Type Recheck Status No Antibody Screen NEGATIVE Spec Expiration Date 11/12/20242349 Disposition Clinical Impression: Threatened miscarriage, Subchorionic hemorrhage, Rh negative status during preg danna Disposition: HOME SELF-CARE Condition: Good Instructions (If sedation given, give patient instructions): Threatened M iscarriage (ED) Additional Instructions: Diagnosis is threatened miscarriage. You have a subchorionic hemorrhage seen on ultrasound. Ultrasound also revealed a definitive intrauterine dating 10 weeks and 5 days with a acceptable heart rate in the 150s. ou are Rh- and in the setting of vaginal bleeding of , you received RhoGAM today. Please follow-up with your CNC SERVICE TECHNICIAN in the next 1 to 3 days. You may require repeat ultrasound imaging. Return if any worsening bleeding or symptoms. You can use Tylenol for analgesia at home. Continue use of vitamins at home. Is patient prescribed a controlled substance at d/c from ED?: No Referrals: Faiza Leslie MD [Primary Care Provider] - 1-2 days Ever Terry MD [STAFF PHYSICIAN] - 1-2 days Time of Disposition: 19:30
[2024-11-09 19:34] VITALS: BP 110/64; PULSE 80
[2024-11-09] MEDS: Rhogam IMMUNE GLOBULIN 1,500 UNIT/1 ML IM ONE (19:47)
== END 2024-11-09 19:52 | disposition home or self-care (01) ==
LOC: EC 15:11
DX: O20.0 Threatened abortion (principal); O24.111 Pre-existing type 2 diabetes mellitus, in pregnancy, first trimester; O26.891 Other specified pregnancy related conditions, first trimester; Z67.41 Type O blood, Rh negative; Z87.891 Personal history of nicotine dependence; Z3A.10 10 weeks gestation of pregnancy
CPT/HCPCS: 99284; 96372; 36415; 86900; 86901; 80048; 85025; 85610; 85730; 86850; 81001; 84702; 76801; J2790

== ENCOUNTER 2025-02-22 13:14 | Outpatient (CLI) | payer BC, OTHER ==
[2025-02-22 14:00] LABS: Glucose,Whole Blood 196 mg/dL (70-110)
[2025-02-22] MEDS: LACTATED RINGERS 1,000 ML IV ONE (14:15)
[2025-02-22] MEDS: MAGNESIUM SULFATE-WATER PMX 4 GM in WATER FOR INJECTION 1 100ML.BAG IVPB ONE (14:18)
[2025-02-22] MEDS: MAGNESIUM SULFATE-WATER PMX 20 GM in WATER FOR INJECTION 1 500ML.BAG IV SCH (14:25)
[2025-02-22] MEDS: TERBUTALINE 1 MG/ML VIAL SQ PRN (14:26)
--- NOTE | 2025-02-22 14:34 | P.HPOB ---
History of Present Illness H&P Date: 02/22/25 Chief Complaint: Vaginal bleeding, pelvic pressure, cramping Ms. Koehler is a 29 year old at 25 weeks and 6 days (VUALDO 06/01/25) with PMH of type 2 diabetes and a short cervix in this who sees Dr. Valle presenting in labor. She has had a history of short cervix this and was hospitalized at [facility] on 02/13- for 0.5 centimeter dilation of the cervix. She did receive a course of betamethasone at this time. She was sexually active yesterday and began to have bleeding with wiping after this. She also now has cramping and pelvic pressure. Past medical history: T2DM Surgical History: Ankle surgery Medications: Lantus, Novolog, Metformin Social History: Tobacco use (3 cigarettes daily), marijuana use occasionally, no alcohol use Past Medical History Past Medical History: Diabetes Mellitus Additional Past Medical History / Comment(s): ovarian cysts, PCOS, blood transfusions History of Any Multi-Drug Resistant Organisms: VRE Date of last positivie culture/infection: 10/06/24 MDRO Source:: urine Past Surgical History: Ear Surgery, Orthopedic Surgery Additional Past Surgical History / Comment(s): l ankle Past Anesthesia/Blood Transfusion Reactions: No Reported Reaction Smoking Status: Current every day smoker - Past Family History Father Additional Family Medical History / Comment(s): back surgery, heart problems Mother Additional Family Medical History / Comment(s): DJD Medications and Allergies Home Medications Medication Instructions Recorded Confirmed Type Aspirin 81 mg PO DAILY 02/22/25 02/22/25 History Insulin Aspart [NovoLOG Flexpen] 10 units SQ TID-W/MEALS 02/22/25 02/22/25 History Insulin Glargine,Hum.rec.anlog 28 units SQ DAILY 02/22/25 02/22/25 History [Lantus Solostar Pen] Vit No.179/Iron/Folic 1 each PO DAILY 02/22/25 02/22/25 History [ Tablet] Progesterone, Micronized 100 mg VAGINAL DAILY 02/22/25 02/22/25 History [Progesterone] metFORMIN HCL [Metformin HCl] 500 mg PO BID 02/22/25 02/22/25 History Allergies Allergy/AdvReac Type Severity Reaction Status Date / Time No Known Allergies Allergy Verified 02/22/25 13:34 Exam Intake and Output 02/21/25 02/22/25 02/22/25 22:59 06:59 14:59 Other: Weight 80.286 kg Focused physical exam is performed. This is a healthy-appearing in no apparent distress. Breathing is non-labored. Abdomen is gravid and non-tender. Cervical exam is 3.5/50/-2 with ballotable head. Extremities non-tender and non-edematous. heart tones are reassuring for gestational age (140s/moderate variability/no accelerations/no decelerations) Results Abnormal Lab Results - Last 24 Hours (Table) 02/22/25 Range/Units 13:50 POC Glucose (mg/dL) 196 H (70-110) mg/dL Assessment and Plan Assessment: 29 year old at 25 weeks and 6 days (UVALDO 06/01/25) with PMH of type 2 diabetes and a short cervix in this who sees Dr. Valle presenting in labor Plan: The patient will be transferred for labor to [facility] in [place]. Penicillin G was started for GBS prophylaxis. Magnesium sulfate 4g bolus was started for neuroprotection. A dose of terbutaline 0.2 mg has been given for tocolysis. Dr. Ava Bowman has accepted the transfer.
[2025-02-22] MEDS: PENICILLIN G POTASSIUM 5,000,000 UNIT in SODIUM CHLORIDE 0.9% 100 ML IVPB STA (14:35)
[2025-02-22 14:47] LABS: Basophils # (A) 0.04 10*3/uL (0.00-0.10); Basophils % (A) 0.3 %; Eosinophils # (A) 0.11 10*3/uL (0.04-0.35); Eosinophils % (A) 0.9 %; HCT 33.4 % (37.2-46.3); HGB 11.4 g/dL (12.0-15.0); Lymphocytes # (A) 2.33 10*3/uL (0.90-5.00); Lymphocytes % (A) 19.3 %; MCH 31.5 pg (27.0-32.0); MCHC 34.1 g/dL (32.0-37.0); MCV 92.3 fL (80.0-97.0); Mean Platelet Volume 11.5 fL (9.5-12.2); Monocytes % (A) 7.5 %; Neutrophils % (A) 71.4 %; Platelet Count 199 10*3/uL (140-440); RBC 3.62 10*6/uL (4.10-5.20); RDW 13.1 % (11.5-14.5); WBC 12.05 10*3/uL (4.50-10.00)
[2025-02-22 14:58] VITALS: RESP 18
[2025-02-22 16:10] VITALS: BP 128/73; PULSE 108
[2025-02-22 16:44] VITALS: TEMP 98.2
== END 2025-02-22 16:36 ==
LOC: FBPOP 13:14
PROVIDERS: ATTEND Obstetrics & Gynecology
DX: O24.912 Unspecified diabetes mellitus in pregnancy, second trimester (principal); O26.872 Cervical shortening, second trimester; Z3A.25 25 weeks gestation of pregnancy; F12.90 Cannabis use, unspecified, uncomplicated; Z87.891 Personal history of nicotine dependence
CPT/HCPCS: 99215; 96361; 96365; 96366; 96367; 96372; 85025; J3105; J3475 ×2; J2540